=== PATIENT | female | born 1930 | race Caucasian/White ===

== ENCOUNTER 2016-10-21 21:25 | Inpatient (IN) | payer MEDICARE, OTHER ==
[~2016-10-21] VITALS: Ht 152.4 cm; Wt 58.6 kg
[2016-10-21] MEDS ORDERED: FER325 PO (22:13)
[2016-10-21] MEDS ORDERED: DOCU-159 PO (22:13)
[2016-10-21] MEDS ORDERED: MECL-77 PO (22:14)
[2016-10-21] MEDS ORDERED: CARV6.2579 PO (22:14)
[2016-10-21] MEDS ORDERED: VALS1TAB80 PO (22:15)
[2016-10-21] MEDS ORDERED: CLOP75TA4 PO (22:15)
[2016-10-21] MEDS ORDERED: METF1000 PO (22:15)
[2016-10-21] MEDS ORDERED: NOVO3I SC (22:16)
[2016-10-21] MEDS ORDERED: FENO145T19 PO (22:16)
[2016-10-21] MEDS ORDERED: LANT3I SC (22:17)
[2016-10-21] MEDS ORDERED: LINA290C PO (22:17)
[2016-10-21 22:37] LABS: BASOPHILS % 0.3 % (0.0-2.0); EOSINOPHILS # 0.2 10^3/ul (0.0-0.5); EOSINOPHILS % 1.1 % (0.0-7.0); HEMATOCRIT 31.7 % (37.0-47.0); LYMPHOCYTES % 13.4 % (15.0-51.0); MEAN CORPUSCULAR HEMOGLOBIN 25.6 pg (29.0-33.0); MEAN CORPUSCULAR HGB CONC 31.5 g/dl (32.0-37.0); MEAN CORPUSCULAR VOLUME 81.1 fl (82.0-101.0); MEAN PLATELET VOLUME 12.8 fl (7.4-10.4); MONOCYTE # 0.8 10^3/ul (0.3-0.9); MONOCYTES % 5.4 % (0.0-11.0); NEUTROPHILS % 79.3 % (39.0-77.0); PLATELET COUNT 342 10^3/UL (140-415); RED BLOOD COUNT 3.91 10^6/ul (4.20-5.40); RED CELL DISTRIBUTION WIDTH 17.5 % (11.5-14.5); WHITE BLOOD COUNT 15.2 10^3/ul (4.8-10.8)
[2016-10-21 22:39] LABS: POSITIVE DIFF @See below
[2016-10-21 22:52] LABS: INR 1.05; PROTIME 13.7 Sec (12.2-14.2); PT RATIO 1.1
--- NOTE | 2016-10-21 22:52 | RADRPT ---
PROCEDURE: XR Chest. CLINICAL INDICATION: Possible sepsis. TECHNIQUE: Single frontal view of the chest. COMPARISON: None. FINDINGS: Cardiomegaly with atherosclerotic calcifications in the thoracic aorta. There is very mild pulmonary vascular ingestion, and patchy right mid lung and lung base air space d isease. There is mild elevation of the left hemidiaphragm with atelectasis at the left lung base. Fi ndings suggest right lung base pneumonia and mild superimposed failure. No signs of pleural fluid or pneumothorax are seen. The osseous structures and soft tissues are unre markable. IMPRESSION: Right lung base pneumonia. RPTAT: [facility] Physician Ronnie Date Time Electronically viewed and signed by Physician Ronnie on 10/21/2016 22:52 RS/
[2016-10-21 22:53] LABS: PARTIAL THROMBOPLASTIN TIME 22.4 Sec (25.0-35.0)
[2016-10-21 22:56] LABS: ALANINE AMINOTRANSFERASE 34 IU/L (13-69); ALBUMIN 3.1 g/dl (3.3-4.9); ALBUMIN/GLOBULIN RATIO 0.91; ALKALINE PHOSPHATASE 69 IU/L (42-121); ANION GAP 20 (8-16); ASPARTATE AMINO TRANSFERASE 26 IU/L (15-46); BLOOD UREA NITROGEN 35 mg/dl (7-20); CALCIUM 8.2 mg/dl (8.4-10.2); CARBON DIOXIDE 26 mmol/L (21-31); CHLORIDE 105 mmol/L (97-110); CREATININE 1.02 mg/dl (0.44-1.00); GLUCOSE 240 mg/dl (70-220); SODIUM 148 mmol/L (135-144); TOTAL PROTEIN 6.5 g/dl (6.1-8.1)
[2016-10-21 22:59] LABS: ADD UMIC YES; UR ASCORBIC ACID NEGATIVE (NEGATIVE); UR BACTERIA MANY /HPF (NONE SEEN); UR BILIRUBIN (Dip) NEGATIVE (NEGATIVE); UR BLOOD (Dip) NEGATIVE (NEGATIVE); UR CLARITY SLIGHTLY CLOUDY (CLEAR); UR COLOR YELLOW (YELLOW); UR GLUCOSE (Dip) 1+ mg/dL (NEGATIVE); UR KETONES (Dip) NEGATIVE (NEGATIVE); UR LEUKOCYTE ESTERASE (Dip) 2+ Leu/ul (NEGATIVE); UR MUCUS FEW /HPF (NONE SEEN); UR NITRITE (Dip) NEGATIVE (NEGATIVE); UR RBC 0 /HPF (0-5); UR SPECIFIC GRAVITY (Dip) 1.015 (1.003-1.030); UR TOTAL PROTEIN (Dip) 1+ mg/dl (NEGATIVE); UR UROBILINOGEN (Dip) NEGATIVE (NEGATIVE)
[2016-10-21 23:03] LABS: POTASSIUM 2.9 mmol/L (3.5-5.1)
[2016-10-21 23:08] LABS: TROPONIN-I < 0.012 ng/ml (0.00-0.12)
[2016-10-22] VITALS (48 sets, daily range): BP systolic 67–178; BP diastolic 29–107; PULSE 63–85; RESP 13–29; Ht 152.4 cm; Wt 58.6 kg
[2016-10-22] MEDS ORDERED: SODIUM CHLORIDE 0.9% 1L BAG IV* STA
[2016-10-22] MEDS ORDERED: VANCOMYCIN 1 GM (PMX) 250 ML IVPB ONE
[2016-10-22] MEDS ORDERED: CEFEPIME 2GM/50 ML (PMX) 50 ML IVPB ONE
--- NOTE | 2016-10-22 00:02 | RADRPT ---
PROCEDURE: CT BRAIN WITHOUT CONTRAST CLINICAL INDICATION: 86-year-old female with altered mental status TECHNIQUE: The study was performed utilizing [employer] VCT 64-slice CT scanner. Direct axial sections were obtained from the foramen magnum to the vertex without the use of intravenous contrast material. Sagittal and coronal reformations were obtained. Sagittal and coronal reformations were obtained. One or more the following dose reduction techniques were utilized: automated exposure cont rol, adjustment of the mA and/or kV according to patient's size or use of iterative reconstruction t echnique. The images were viewed on a PACS workstation. CTD/vol = 43.9 mGy; Total Exam DLP = 720.2 mGy-cm. COMPARISON: None. FINDINGS: There is moderate degree of diffuse cortical and central atrophy with compensatory ventricular enlar gement. There is an ovoid focus of increased density consistent with hemorrhage within the left glob us pallidus measuring approximately 10 x 12 x 8 mm with mild surrounding edema. There is no evidence for midline shift. There are periventricular and deep white matter areas of decreased density cons istent with microangiopathic ischemic changes. There is an old lacunar infarct within the right glob us pallidus. Calcifications are seen within the intracranial carotid and vertebral arteries bilatera lly. The bony calvarium is intact. There is mild mucosal thickening within the partially visualized right ethmoid air cells. The mastoid air cells are without significant soft tissue. The inferior m astoid air cells are partially sclerotic consistent with prior mastoid disease. IMPRESSION: 1. Acute left globus pallidus intracranial hemorrhage with mild surrounding edema. 2. Moderate diffuse atrophy. 2. Microangiopathic ischemic changes. 3. Old right basal ganglia lacunar infarct. 4. Vascular calcifications. 5. Mild mucosal thickening partially visualized right ethmoid air cells. CRITICAL RESULTS: A call report was made to [facility] ER Dr. Velazquez on October 21, 2016 at 11:59 p.m . .Rah Boo MD, Date Time Electronically viewed and signed by .Rah Boo MD, MD on 10/22/2016 00:02 .M/
[2016-10-22] MEDS ORDERED: POTASSIUM CHLORIDE 20 MEQ in SOD CHLORIDE 0.9% 100 ML IVPB ONE (00:30)
--- NOTE | 2016-10-22 01:42 | ERA ---
ER Documentation Chief Complaint Date/Time DATE: 10/22/16 TIME: 01:39 Chief Complaint biba from home due to being more altered than usual HPI 86-year-old female brought in from home by family for being more altered than usual per the family. History of baseline dementia. Over the past 2 days of emesis patient is been more lethargic but does arouse easily. Patient herself provides very limited history. ROS All systems reviewed and are negative except as per history of present illness. Medications Home Meds Reported Medications Insulin Glargine* (Lantus*) 100 Unit/Ml Soln, 6 UNIT SC QHS, #1 VIAL 10/21/16 Linaclotide (LINZESS) 290 Mcg Capsule, 290 MCG PO DAILY Y for NEEDED, #30 CAP 10/21/16 Fenofibrate Nanocrystallized* (Fenofibrate*) 145 Mg Tablet, 145 MG PO DAILY, TAB 10/21/16 Insulin Aspart* (Novolog Insulin Pen*) 100 Unit/Ml Soln, 0 SC .SLIDING SCALE AC , EA 10/21/16 Valsartan-Hydrochlorothiazide (Valsartan-HCTZ) 320-12.5 Mg Tablet, 1 TAB PO DAILY, #30 TAB 10/21/16 Metformin Hcl* (Metformin Hcl*) 1,000 Mg Tablet, 1000 MG PO WITH BREAKFAST DINNE , #60 TAB 10/21/16 Clopidogrel Bisulfate* (Clopidogrel Bisulfate*) 75 Mg Tablet, 75 MG PO DAILY, # 30 TAB 10/21/16 Carvedilol* (Carvedilol*) 6.25 Mg Tablet, 6.25 MG PO BID, #60 TAB 10/21/16 Meclizine Hcl* (Meclizine Hcl*) 25 Mg Tablet, 12.5 MG PO DAILY Y for DIZZINESS, TAB 10/21/16 Docusate Sodium* (Docusate Sodium*) 100 Mg Capsule, 100 MG PO BID, #60 CAP 10/21/16 Ferrous Sulfate* (Ferrous Sulfate*) 325 Mg Tabec, 325 MG PO DAILY, TAB 10/21/16 Allergies Allergies: Coded Allergies: No Known Allergy (Unverified , 10/21/16) PMhx/Soc History of Surgery: Yes (appendectomy) Anesthesia Reaction: No Hx Neurological Disorder: Yes (dementia) Hx Respiratory Disorders: No Hx Cardiac Disorders: Yes (htn, hld) Hx Psychiatric Problems: No Hx Miscellaneous Medical Probl: Yes (dm) Hx Alcohol Use: No Hx Substance Use: No Hx Tobacco Use: No Smoking Status: Never smoker Physical Exam Vitals Vital Signs Date Time Temp Pulse Resp B/P Pulse Ox O2 Delivery O2 Flow Rate FiO2 10/21/16 22:00 Nasal Cannula 4 10/21/16 21:51 98.4 85 22 141/70 99 Physical Exam Const: [] Head: Atraumatic Eyes: Normal Conjunctiva ENT: Normal External Ears, Nose and Mouth. Neck: Full range of motion..~ No meningismus. Resp: Clear to auscultation bilaterally Cardio: Regular rate and rhythm, no murmurs Abd: Soft, non tender, non distended. Normal bowel sounds Skin: No petechiae or rashes Back: No midline or flank tenderness Ext: No cyanosis, or edema Neur: Awake and alert Psych: Normal Mood and Affect Result Diagram: 10/21/16215310/21/162153 Results 24 hrs Laboratory Tests Test 10/21/16 21:54 10/21/16 23:50 White Blood Count 15.210^3/ul Red Blood Count 3.9110^6/ul Hemoglobin 10.0g/dl Hematocrit 31.7% Mean Corpuscular Volume 81.1fl Mean Corpuscular Hemoglobin 25.6pg Mean Corpuscular Hemoglobin Concent 31.5g/dl Red Cell Distribution Width 17.5% Platelet Count 95977^3/UL Mean Platelet Volume 12.8fl Neutrophils % 79.3% Lymphocytes % 13.4% Monocytes % 5.4% Eosinophils % 1.1% Basophils % 0.3% Nucleated Red Blood Cells % 0.0/100WBC Neutrophils # (Manual) 12.110^3/ul Lymphocytes # 2.010^3/ul Monocytes # 0.810^3/ul Eosinophils # 0.210^3/ul Basophils # 0.010^3/ul Nucleated Red Blood Cells # 0.010^3/ul Prothrombin Time 13.7Sec Prothrombin Time Ratio 1.1 INR International Normalized Ratio 1.05 Activated Partial Thromboplast Time 22.4Sec Urine Color YELLOW Urine Clarity SLIGHTLY CLOUDY Urine pH 5.0 Urine Specific [place] 1.015 Urine Ketones NEGATIVEmg/dL Urine Nitrite NEGATIVEmg/dL Urine Bilirubin NEGATIVEmg/dL Urine Urobilinogen NEGATIVEmg/dL Urine Leukocyte Esterase 2+Husam/ul Urine Microscopic RBC 0/HPF Urine Microscopic WBC 4/HPF Urine Bacteria MANY/HPF Urine Mucus FEW/HPF Urine Hemoglobin NEGATIVEmg/dL Urine Glucose 1+mg/dL Urine Total Protein 1+mg/dl Sodium Level 148mmol/L Potassium Level 2.9mmol/L Chloride Level 105mmol/L Carbon Dioxide Level 26mmol/L Anion Gap 20 Blood Urea Nitrogen 35mg/dl Creatinine 1.02mg/dl Glucose Level 240mg/dl Lactic Acid Level 2.2mmol/L 1.5mmol/L Calcium Level 8.2mg/dl Total Bilirubin 0.0mg/dl Direct Bilirubin 0.00mg/dl Indirect Bilirubin 0.0mg/dl Aspartate Amino Transf (AST/SGOT) 26IU/L Alanine Aminotransferase (ALT/SGPT) 34IU/L Alkaline Phosphatase 69IU/L Troponin I < 0.012ng/ml Total Protein 6.5g/dl Albumin 3.1g/dl Globulin 3.40g/dl Albumin/Globulin Ratio 0.91 Thyroid Stimulating Hormone (TSH) 3.290MIU/L Current Medications Medications (Trade) Dose Ordered Sig/Lilliam Route PRN Reason Start Time Stop Time Status Last Admin Dose Admin Sodium Chloride 2540 ml 2,540 ml BOLUS OVER 2 HOURS STAT IV* 10/22/16 00:00 10/22/16 00:04 DC Cefepime HCl 50 ml @ 100 mls/hr ONCE ONCE IVPB 10/22/16 00:00 10/22/16 00:29 DC Vancomycin HCl 250 ml @ 125 mls/hr ONCE ONCE IVPB 10/22/16 00:00 10/22/16 01:59 Potassium Chloride/Sodium Chloride (KCl/NS) 110 ml @ 55 mls/hr ONCE ONCE IVPB 10/22/16 00:30 10/22/16 02:29 Procedures/MDM EKG: Rate/Rhythm: Normal Sinus Rhythm QRS, ST, T-waves: No changes consistent w/ acute ischemia Impression: No evidence of ischemia or arrhythmia Chest X-ray 1V Interpreted by me: Soft Tissue: No acute abnormalities Bones: No acute abnormalities Mediastinum/Cardiac Silhouette/Lungs: No acute abnormalities CT of the head shows hypertensive bleed. Please see radiologist full dictation for report. Medical decision-makin-year-old female with hypertensive bleed. Patient will be admitted to the intensive care unit. Neurosurgery merchandiser seasonal consulted. Patient will be admitted to hospitalist. Critical Care: Time: 45 minutes Treatments/Evaluations: Close monitoring and treatment of unstable vital signs, cardiorespiratory, and neurologic status, while maintaining tight balance of fluid, respiratory, and cardiac interventions. Departure Diagnosis: Primary Impression: Altered mental status Qualified Code: R41.82 - Altered mental status, unspecified altered mental status type Additional Impression: Acute spont intraparenchymal hemorrhage assoc w/ hypertension Condition: Critical JELANI RAZA Oct 22, 2016 01:42
[2016-10-22] MEDS ORDERED: morphine 2 MG INJ IV PRN (03:30)
[2016-10-22] MEDS ORDERED: ALBUTEROL/IPRATROPIUM (NEB) 3 ML AMP NEB PRN (03:30)
[2016-10-22] MEDS ORDERED: LORAZEPAM 2 MG INJ IV PRN (03:30)
[2016-10-22] MEDS ORDERED: ONDANSETRON 4 MG INJ IV PRN (03:30)
[2016-10-22] MEDS ORDERED: GLUCAGON 1 MG INJ IM PRN (03:45)
[2016-10-22] MEDS ORDERED: GLUCOSE GEL 15 GRAM TUBE PO PRN ×2 (03:45)
[2016-10-22] MEDS ORDERED: DEXTROSE 50% 50 ML SYRINGE IV PRN ×2 (03:45)
--- NOTE | 2016-10-22 05:14 | HP ---
Date/Time of Note Date/Time of Note DATE: 10/22/16 TIME: 05:00 Assessment/Plan VTE Prophylaxis VTE Prophylaxis Intervention: SCD's Assessment/Plan Assessment/Plan 1. Acute intracranial hemorrhage -Continue ICU monitoring -Systolic blood pressure goal should be less than 140 -will repeat head CT in the morning to evaluate for interval change. Consider additional imaging with MRI as well -Frequent neuro checks -Follow-up neurosurgery recommendation 2. Altered mentation, secondary to above -Patient does have a history of dementia but acutely worsened secondary to above -Frequent neuro checks 3. Hypertension: Currently blood pressure not at goal with SBP > 170 on the monitor -Antihypertensives with adjustment as needed -An order for a nicardipine drip will be placed as well 4. Sepsis, as evidenced by leukocytosis and tachypnea, secondary to pneumonia -IV antibiotic -Blood culture results 5. Diabetes with hyperglycemia -Check A1c in a.m. -Insulin with adjustment as needed 6. History of dyslipidemia -Continue home med HPI/ROS Admit Date/Time Admit Date/Time Hx of Present Illness This is an 86-year-old female with a history of hypertension, independent diabetes, dyslipidemia, dementia who was brought to the ER from home for altered mentation. Patient does have a history of dementia but she was noted to be more altered. Patient is not able to provide history and as such information is gathered from ER physician and notes. When patient presented to the ER brain CT showed ccute left globus pallidus intracranial hemorrhage with mild surrounding edema and old right basal ganglia lacunar infarct. Chest x-ray with right lung base pneumonia. Her initial BP was 141/70 with a heart rate of 85. Labs shows a WBC of 15,000, potassium 2.8, hemoglobin 10, BUN 35, creatinine 1.02, glucose 240. Currently she is admitted to ICU. Her eyes are closed but she attempts to open with a stimuli. There is no acute distress noted. . PMH/Family/Social Past Medical History Medical History: diabetes, high cholesterol, hypertension, other (Dementia) Social History Alcohol Use: other (Unknown) Smoking Status: Unknown if ever smoked Drug Use: other (Unknown) Exam/Review of Systems Vital Signs Vitals Vital Signs Date Time Temp Pulse Resp B/P Pulse Ox O2 Delivery O2 Flow Rate FiO2 10/21/16 22:00 Nasal Cannula 4 10/21/16 21:51 98.4 85 22 141/70 99 Exam Constitutional: other (Lying in bed with eyes closed. No acute distress noted) Head: atraumatic, normocephalic Eyes: PERRL Respiratory: diminished breath sounds Cardiovascular: regular rate and rhythm, systolic murmur Gastrointestinal: soft Musculoskeletal: other (Right foot pitting edema noted. She has a few scattered superficial ulceration on lower extremity) Labs Result Diagram: 10/21/16215310/21/162153 Medications Medications Current Medications Ondansetron HCl (Zofran Inj) 4 mg Q6H PRN IV NAUSEA AND/OR VOMITING; Start at 03:30 Acetaminophen (Tylenol Liquid) 650 mg Q6H PRN PO PAIN LEVEL 1-3 OR FEVER; Start 10/22/16 at 03:30 Morphine Sulfate (morphine) 2 mg Q4H PRN IV PAIN LEVEL 7-10; Start 10/22/16 at 03:30 Lorazepam (Ativan) 0.5 mg Q4H PRN IV ANXIETY; Start 10/22/16 at 03:30 Famotidine (Pepcid Iv) 20 mg DAILY IV ; Start 10/22/16 at 09:00 Carvedilol (Coreg) 6.25 mg BID PO ; Start 10/22/16 at 09:00 Fenofibrate (Tricor) 145 mg DAILY PO ; Start 10/22/16 at 09:00; Status UNV Ferrous Sulfate 325 mg 325 mg DAILY PO ; Start 10/22/16 at 09:00; Status UNV Levofloxacin/ Dextrose (Levaquin 500mg/ D5W 100 ml (Pmx)) 100 ml @ 100 mls/hr ONCE ONCE IVPB ; Start 10/22/16 at 06:00; Stop 10/22/16 at 06:59 Diagnostic Test (Pha) 1 ea 1 ea 02 XX ; Start 10/23/16 at 02:00 Levofloxacin/ Dextrose (Levaquin 250 Mg/ D5W 50 ml (Pmx)) 50 ml @ 50 mls/hr Q24H IVPB ; Start 10/23/16 at 06:00 Miscellaneous Information 1 ea NOTE XX ; Start 10/22/16 at 03:45 Glucose (Glutose) 15 gm Q15M PRN PO DECREASED GLUCOSE; Start 10/22/16 at 03:45 Glucose (Glutose) 22.5 gm Q15M PRN PO DECREASED GLUCOSE; Start 10/22/16 at 03: 45 Dextrose (D50w Syringe) 25 ml Q15M PRN IV DECREASED GLUCOSE; Start 10/22/16 at 03:45 Dextrose (D50w Syringe) 50 ml Q15M PRN IV DECREASED GLUCOSE; Start 10/22/16 at 03:45 Glucagon (Glucagen) 1 mg Q15M PRN IM DECREASED GLUCOSE; Start 10/22/16 at 03:45 Glucose (Glutose) 15 gm Q15M PRN BUCCAL DECREASED GLUCOSE; Start 10/22/16 at 03 :45 JELANI HEBERT MD Oct 22, 2016 05:10
[2016-10-22] MEDS: LABETALOL HCL 20MG INJ IV PRN (05:53)
[2016-10-22] MEDS ORDERED: LEVOFLOXACIN 500MG/D5W (PMX) 100 ML IVPB ONE (06:00)
[2016-10-22 06:50] LABS: BASOPHILS % 0.3 % (0.0-2.0); EOSINOPHILS # 0.2 10^3/ul (0.0-0.5); EOSINOPHILS % 1.8 % (0.0-7.0); HEMATOCRIT 27.5 % (37.0-47.0); HEMOGLOBIN 8.6 g/dl (12.0-16.0); LYMPHOCYTES # 2.1 10^3/ul (0.8-2.9); LYMPHOCYTES % 16.7 % (15.0-51.0); MEAN CORPUSCULAR HGB CONC 31.3 g/dl (32.0-37.0); MEAN CORPUSCULAR VOLUME 83.1 fl (82.0-101.0); MEAN PLATELET VOLUME 10.9 fl (7.4-10.4); MONOCYTE # 0.8 10^3/ul (0.3-0.9); NEUTROPHILS % 74.6 % (39.0-77.0); PLATELET COUNT 384 10^3/UL (140-415); RED BLOOD COUNT 3.31 10^6/ul (4.20-5.40); RED CELL DISTRIBUTION WIDTH 17.3 % (11.5-14.5); WHITE BLOOD COUNT 12.6 10^3/ul (4.8-10.8)
[2016-10-22 07:24] LABS: ALBUMIN 2.5 g/dl (3.3-4.9); ALBUMIN/GLOBULIN RATIO 0.89; CALCIUM 7.3 mg/dl (8.4-10.2); CREATININE 0.88 mg/dl (0.44-1.00); TOTAL PROTEIN 5.3 g/dl (6.1-8.1)
[2016-10-22] MEDS: INSULIN ASPART [NOVOLOG] 3 ML PEN SC SCH ×4 (07:35→21:00)
[2016-10-22 07:48] LABS: POTASSIUM 2.6 mmol/L (3.5-5.1)
[2016-10-22] MEDS: niCARdipine-NS 0.1MG/ML DRIP 200 ML IV SCH ×4 (07:51→21:42)
[2016-10-22] MEDS: FERROUS SULFATE (EC) 325 MG TAB PO SCH (09:05)
[2016-10-22] MEDS: FENOFIBRATE 145 MG TAB PO SCH (09:06)
[2016-10-22] MEDS: FAMOTIDINE 20 MG INJ IV SCH (09:15)
--- NOTE | 2016-10-22 09:38 | PN ---
Date/Time of Note Date/Time of Note DATE: 10/22/16 TIME: 09:34 Assessment/Plan VTE Prophylaxis VTE Prophylaxis Intervention: contraindicated Lines/Catheters IV [facility]from [facility] Peripheral IV Urinary Cath still in place: Yes Reason Cath still needed: urinary retention Assessment/Plan Chief Complaint/Hosp Course Assessment and plan: 86-year-old female with a history of hypertension, independent diabetes, dyslipidemia, dementia who was brought in for altered mentation, found with intracranial hemorrhage. 1. Acute intracranial hemorrhage -initial CT had showed:Acute left globus pallidus intracranial hemorrhage with mild surrounding edema. -Continue ICU monitoring -Systolic blood pressure goal should be less than 140, on Cardene drip -Follow-up repeat head CT in the morning to evaluate for interval change. Consider additional imaging with MRI as well -Frequent neuro checks -Follow-up neurosurgery recommendations 2. Altered mentation, secondary to above: Patient does have a history of dementia but acutely worsened secondary to above -Continue frequent neuro checks 3. Hypertension: Currently blood pressure at goal this morning less than 140 systolic while on Cardene drip -Continue antihypertensives with adjustment as needed, including Cardene drip for now 4. Sepsis, as evidenced by leukocytosis and tachypnea, secondary to pneumonia and likely UTI -IV antibiotic -Blood culture results, respiratory and urine culture results as well follow-up 5. Diabetes with hyperglycemia: A1c equals 7.6 -Insulin with adjustment as needed 6. History of dyslipidemia -Continue home med Critical care time spent on patient care today equals 50 minutes Problems: Subjective 24 Hr Interval Summary Free Text/Dictation Patient presently on Cardene drip. No acute events overnight. Awaiting repeat head CT for later this morning. Exam/Review of Systems Vital Signs Vitals Vital Signs Date Time Temp Pulse Resp B/P Pulse Ox O2 Delivery O2 Flow Rate FiO2 10/22/16 06:30 69 15 138/47 97 Nasal Cannula 2.0 10/22/16 04:30 97.8 Intake and Output 10/21/16 10/21/16 10/22/16 15:00 23:00 07:00 Output Total 350 ml Balance -350 ml Exam Constitutional: other (Lying in bed with eyes closed. No acute distress noted) Head: atraumatic, normocephalic Eyes: PERRL Respiratory: some diminished breath sounds Cardiovascular: regular rate and rhythm, systolic murmur Gastrointestinal: soft Musculoskeletal: other (Right foot pitting edema noted. She has a few scattered superficial ulceration on lower extremity) Results Result Diagram: 10/22/16 0639 10/22/16 0639 Results 24 hrs Laboratory Tests Test 10/21/16 21:54 10/21/16 23:50 10/22/16 01:30 10/22/16 06:39 White Blood Count 15.2 H 12.6 H Red Blood Count 3.91 L 3.31 L Hemoglobin 10.0 L 8.6 L Hematocrit 31.7 L 27.5 L Mean Corpuscular Volume 81.1 L 83.1 Mean Corpuscular Hemoglobin 25.6 L 26.0 L Mean Corpuscular Hemoglobin Concent 31.5 L 31.3 L Red Cell Distribution Width 17.5 H 17.3 H Platelet Count 342 384 Mean Platelet Volume 12.8 H 10.9 H Neutrophils % 79.3 H 74.6 Lymphocytes % 13.4 L 16.7 Monocytes % 5.4 6.0 Eosinophils % 1.1 1.8 Basophils % 0.3 0.3 Nucleated Red Blood Cells % 0.0 0.0 Neutrophils # (Manual) 12.1 H 9.4 H Lymphocytes # 2.0 2.1 Monocytes # 0.8 0.8 Eosinophils # 0.2 0.2 Basophils # 0.0 0.0 Nucleated Red Blood Cells # 0.0 0.0 Prothrombin Time 13.7 Prothrombin Time Ratio 1.1 INR International Normalized Ratio 1.05 Activated Partial Thromboplast Time 22.4 L Urine Color YELLOW Urine Clarity SLIGHTLY CLOUDY A Urine pH 5.0 Urine Specific [place] 1.015 Urine Ketones NEGATIVE Urine Nitrite NEGATIVE Urine Bilirubin NEGATIVE Urine Urobilinogen NEGATIVE Urine Leukocyte Esterase 2+ H Urine Microscopic RBC 0 Urine Microscopic WBC 4 Urine Bacteria MANY A Urine Mucus FEW A Urine Hemoglobin NEGATIVE Urine Glucose 1+ H Urine Total Protein 1+ H Sodium Level 148 H 149 H Potassium Level 2.9 *L 2.6 *L Chloride Level 105 112 H Carbon Dioxide Level 26 25 Anion Gap 20 H 15 Blood Urea Nitrogen 35 H 31 H Creatinine 1.02 H 0.88 Glucose Level 240 H 191 Lactic Acid Level 2.2 *H 1.5 1.4 Calcium Level 8.2 L 7.3 L Total Bilirubin 0.0 L 0.0 L Direct Bilirubin 0.00 0.00 Indirect Bilirubin 0.0 0.0 Aspartate Amino Transf (AST/SGOT) 26 23 Alanine Aminotransferase (ALT/SGPT) 34 31 Alkaline Phosphatase 69 52 Troponin I < 0.012 Total Protein 6.5 5.3 #L Albumin 3.1 L 2.5 L Globulin 3.40 H 2.80 Albumin/Globulin Ratio 0.91 0.89 Thyroid Stimulating Hormone (TSH) 3.290 Hemoglobin A1c 7.6 H Test 10/22/16 08:30 Bedside Glucose 173 Medications Medications Current Medications Ondansetron HCl (Zofran Inj) 4 mg Q6H PRN IV NAUSEA AND/OR VOMITING; Start at 03:30 Acetaminophen (Tylenol Liquid) 650 mg Q6H PRN PO PAIN LEVEL 1-3 OR FEVER; Start 10/22/16 at 03:30 Morphine Sulfate (morphine) 2 mg Q4H PRN IV PAIN LEVEL 7-10; Start 10/22/16 at 03:30 Lorazepam (Ativan) 0.5 mg Q4H PRN IV ANXIETY; Start 10/22/16 at 03:30 Famotidine (Pepcid Iv) 20 mg DAILY IV Last administered on 10/22/16 09:15; Admin Dose 20 MG; Start 10/22/16 at 09:00 Carvedilol (Coreg) 6.25 mg BID PO Last administered on 10/22/16 09:06; Admin Dose 6.25 MG; Start 10/22/16 at 09:00 Fenofibrate (Tricor) 145 mg DAILY PO Last administered on 10/22/16 09:06; Admin Dose 145 MG; Start 10/22/16 at 09:00 Ferrous Sulfate (Ferrous Sulfate (Ec)) 325 mg DAILY PO Last administered on 09:05; Admin Dose 325 MG; Start 10/22/16 at 09:00 Diagnostic Test (Pha) 1 ea 1 ea 02 XX ; Start 10/23/16 at 02:00 Levofloxacin/ Dextrose (Levaquin 250 Mg/ D5W 50 ml (Pmx)) 50 ml @ 50 mls/hr Q24H IVPB ; Start 10/23/16 at 06:00 Miscellaneous Information 1 ea NOTE XX ; Start 10/22/16 at 03:45 Glucose (Glutose) 15 gm Q15M PRN PO DECREASED GLUCOSE; Start 10/22/16 at 03:45 Glucose (Glutose) 22.5 gm Q15M PRN PO DECREASED GLUCOSE; Start 10/22/16 at 03: 45 Dextrose (D50w Syringe) 25 ml Q15M PRN IV DECREASED GLUCOSE; Start 10/22/16 at 03:45 Dextrose (D50w Syringe) 50 ml Q15M PRN IV DECREASED GLUCOSE; Start 10/22/16 at 03:45 Glucagon (Glucagen) 1 mg Q15M PRN IM DECREASED GLUCOSE; Start 10/22/16 at 03:45 Glucose (Glutose) 15 gm Q15M PRN BUCCAL DECREASED GLUCOSE; Start 10/22/16 at 03 :45 Labetalol HCl 10 mg 10 mg Q2H PRN IV sbp > 160 Last administered on 10/22/16 05:53; Admin Dose 10 MG; Start 10/22/16 at 05:00 Nicardipine HCl 200 ml @ 50 mls/hr TITRATE IV Last administered on 10/22/16 07:51; Admin Dose 50 MLS/HR; Start 10/22/16 at 05:20 Potassium Chloride (KCl 40 MEQ/250 ML NS) 250 ml @ 62.5 mls/hr Q4H IVPB ; Start 10/22/16 at 09:30; Stop 10/22/16 at 17:29; Status UNV Insulin Glargine (Lantus) 6 unit QHS SC ; Start 10/22/16 at 21:00; Status UNV REGAN CAMARENA Oct 22, 2016 09:38
[2016-10-22 09:54] LABS: CHOL/HDL RATIO 4.9 RATIO
[2016-10-22] MEDS: POTASSIUM CHLORIDE 250 ML IVPB SCH ×2 (12:27→18:22)
--- NOTE | 2016-10-22 18:06 | CONS ---
Date/Time of Note Date/Time of Note DATE: 10/22/16 TIME: 17:46 Assessment/Plan Assessment/Plan Problems: (1) Acute spont intraparenchymal hemorrhage assoc w/ hypertension Status: Acute Comment: Patient with decline in neurologic functioning which has been accelerating. By history, she has baseline dementia. By story, this is significantly progressed as she is generally unable to remember or recognize family members. More acutely, there was a change about a week ago in which she developed some R- sided weakness and speech became more unintelligible. It is likely that this was due to the small bleed involving L basal ganglia and perhaps internal capsule. She further deteriorated yesterday - this was likely medically related such as due to pneumonia which had been seen on CXR. She is now improved c/w overnight, perhaps due to initiation of treatment of this (although O2 sat remains relatively poor). From neurosurgical perspective, there is no indication for intervention. She had been on Plavix, and platelets were given. Recommend: 1. No indication for neurosurgical intervention. 2. Repeat CT scan, and if it is stable, she can be transferred from ICU from neurosurgical perspective. 3. BP control with goal keep SBP<160. 4. Hold Plavix. If anti-platelet agents to be restarted in the future, good BP control especially critical due to risk of further HTN-related ICH. 5. If CT stable, OK to advance diet and activity from neurosurgical perspective. 6. No indication for steroids, anticonvulsants, or ICP management. 7. Avoid fluid overload. Follow electrolytes and avoid hyponatremia. 8. Recommend no or minimal use of sedatives or narcotics as sedating medication will worsen neurologic condition. Consultation Date/Type/Reason Admit Date/Time Date of Consultation: Oct 22, 2016 Type of Consultation: Neurosurgery Reason for Consultation intracranial hemorrhage Hx of Present Illness History was obtained from patient's family members present at bedside as well as from notes. Patient unable to provide any information. According to family, she has baseline dementia and is unable to recognize family members. She has been worsening over time, with an accelerated course recently. The report that it has been several months of very poor memory and confusion. Lives at home and is generally able to get around the house on her own. Beginning about a week ago, they noted decreased mobility and that specifically she had some R-sided weakness. Over days, her appetite became poor and she was not moving herself at all. Speech and understanding worse, speaking words that are not understandable to her family. Yesterday, she was more unresponsive, not opening eyes or responding at all. She was brought to the ER where ICH was noted on CT. Also CXR showing pneumonia. Family not sure if she had been febrile. She had been taking Plavix up until day prior to admission. Subjective hx not possible: pt non-verbal Past Medical History Medical History: diabetes, high cholesterol, hypertension, other (Dementia) Social History Alcohol Use: other (Unknown) Smoking Status: Never smoker Drug Use: other (Unknown) Exam/Review of Systems Vital Signs Vitals Vital Signs Date Time Temp Pulse Resp B/P Pulse Ox O2 Delivery O2 Flow Rate FiO2 10/22/16 16:34 4.0 10/22/16 16:00 80 10/22/16 15:00 26 129/56 94 Nasal Cannula 10/22/16 12:45 98.3 Intake and Output 10/21/16 10/21/16 10/22/16 15:00 23:00 07:00 Output Total 390 ml Balance -390 ml Exam Constitutional: alert, obese, No oriented Head: atraumatic, normocephalic Eyes: PERRL, nl conjunctiva Neck: supple Cardiovascular: nl pulses, No edema Neurological: confused, other (awake and alert; eyes open spontaneously and regards examiner; does vocalize words, but family is unable to understand her; moving spontaneously and purposefully bilat UEs, not following commands; movement RUE and LUE about the same with no obvious weakness or asymrtry; 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 Small L basal ganglion bleed with hyperdense center and more hypodense periphery. about 12 x 8 mm, no significant mass effect. pattern of density suggestive of subacute bleed probably a few days old or so. Significant atrophy with very prominent CSF spaces throughout, no hydrocephalus. Result Diagram: 10/22/16 0639 10/22/16 0639 Results 24 hrs Laboratory Tests Test 10/21/16 21:54 10/21/16 23:50 10/22/16 01:30 10/22/16 06:39 White Blood Count 15.2 H 12.6 H Red Blood Count 3.91 L 3.31 L Hemoglobin 10.0 L 8.6 L Hematocrit 31.7 L 27.5 L Mean Corpuscular Volume 81.1 L 83.1 Mean Corpuscular Hemoglobin 25.6 L 26.0 L Mean Corpuscular Hemoglobin Concent 31.5 L 31.3 L Red Cell Distribution Width 17.5 H 17.3 H Platelet Count 342 384 Mean Platelet Volume 12.8 H 10.9 H Neutrophils % 79.3 H 74.6 Lymphocytes % 13.4 L 16.7 Monocytes % 5.4 6.0 Eosinophils % 1.1 1.8 Basophils % 0.3 0.3 Nucleated Red Blood Cells % 0.0 0.0 Neutrophils # (Manual) 12.1 H 9.4 H Lymphocytes # 2.0 2.1 Monocytes # 0.8 0.8 Eosinophils # 0.2 0.2 Basophils # 0.0 0.0 Nucleated Red Blood Cells # 0.0 0.0 Prothrombin Time 13.7 Prothrombin Time Ratio 1.1 INR International Normalized Ratio 1.05 Activated Partial Thromboplast Time 22.4 L Urine Color YELLOW Urine Clarity SLIGHTLY CLOUDY A Urine pH 5.0 Urine Specific [place] 1.015 Urine Ketones NEGATIVE Urine Nitrite NEGATIVE Urine Bilirubin NEGATIVE Urine Urobilinogen NEGATIVE Urine Leukocyte Esterase 2+ H Urine Microscopic RBC 0 Urine Microscopic WBC 4 Urine Bacteria MANY A Urine Mucus FEW A Urine Hemoglobin NEGATIVE Urine Glucose 1+ H Urine Total Protein 1+ H Sodium Level 148 H 149 H Potassium Level 2.9 *L 2.6 *L Chloride Level 105 112 H Carbon Dioxide Level 26 25 Anion Gap 20 H 15 Blood Urea Nitrogen 35 H 31 H Creatinine 1.02 H 0.88 Glucose Level 240 H 191 Lactic Acid Level 2.2 *H 1.5 1.4 Calcium Level 8.2 L 7.3 L Total Bilirubin 0.0 L 0.0 L Direct Bilirubin 0.00 0.00 Indirect Bilirubin 0.0 0.0 Aspartate Amino Transf (AST/SGOT) 26 23 Alanine Aminotransferase (ALT/SGPT) 34 31 Alkaline Phosphatase 69 52 Troponin I < 0.012 Total Protein 6.5 5.3 #L Albumin 3.1 L 2.5 L Globulin 3.40 H 2.80 Albumin/Globulin Ratio 0.91 0.89 Thyroid Stimulating Hormone (TSH) 3.290 Hemoglobin A1c 7.6 H Triglycerides Level 193 H Cholesterol Level 119 LDL Cholesterol, Calculated 56 HDL Cholesterol 24 L Cholesterol/HDL Ratio 4.9 Test 10/22/16 08:30 10/22/16 12:43 Bedside Glucose 173 152 Medications Medications Current Medications Ondansetron HCl (Zofran Inj) 4 mg Q6H PRN IV NAUSEA AND/OR VOMITING; Start at 03:30 Acetaminophen (Tylenol Liquid) 650 mg Q6H PRN PO PAIN LEVEL 1-3 OR FEVER; Start 10/22/16 at 03:30 Morphine Sulfate (morphine) 2 mg Q4H PRN IV PAIN LEVEL 7-10; Start 10/22/16 at 03:30 Lorazepam (Ativan) 0.5 mg Q4H PRN IV ANXIETY; Start 10/22/16 at 03:30 Famotidine (Pepcid Iv) 20 mg DAILY IV Last administered on 10/22/16 09:15; Admin Dose 20 MG; Start 10/22/16 at 09:00 Carvedilol (Coreg) 6.25 mg BID PO Last administered on 10/22/16 09:06; Admin Dose 6.25 MG; Start 10/22/16 at 09:00 Fenofibrate (Tricor) 145 mg DAILY PO Last administered on 10/22/16 09:06; Admin Dose 145 MG; Start 10/22/16 at 09:00 Ferrous Sulfate (Ferrous Sulfate (Ec)) 325 mg DAILY PO Last administered on 09:05; Admin Dose 325 MG; Start 10/22/16 at 09:00 Diagnostic Test (Pha) 1 ea 1 ea 02 XX ; Start 10/23/16 at 02:00 Levofloxacin/ Dextrose (Levaquin 250 Mg/ D5W 50 ml (Pmx)) 50 ml @ 50 mls/hr Q24H IVPB ; Start 10/23/16 at 06:00 Miscellaneous Information 1 ea NOTE XX ; Start 10/22/16 at 03:45 Glucose (Glutose) 15 gm Q15M PRN PO DECREASED GLUCOSE; Start 10/22/16 at 03:45 Glucose (Glutose) 22.5 gm Q15M PRN PO DECREASED GLUCOSE; Start 10/22/16 at 03: 45 Dextrose (D50w Syringe) 25 ml Q15M PRN IV DECREASED GLUCOSE; Start 10/22/16 at 03:45 Dextrose (D50w Syringe) 50 ml Q15M PRN IV DECREASED GLUCOSE; Start 10/22/16 at 03:45 Glucagon (Glucagen) 1 mg Q15M PRN IM DECREASED GLUCOSE; Start 10/22/16 at 03:45 Glucose (Glutose) 15 gm Q15M PRN BUCCAL DECREASED GLUCOSE; Start 10/22/16 at 03 :45 Labetalol HCl 10 mg 10 mg Q2H PRN IV sbp > 160 Last administered on 10/22/16 05:53; Admin Dose 10 MG; Start 10/22/16 at 05:00 Nicardipine HCl 200 ml @ 50 mls/hr TITRATE IV Last administered on 10/22/16 16:55; Admin Dose 50 MLS/HR; Start 10/22/16 at 05:20 Potassium Chloride (KCl 40 MEQ/250 ML NS) 250 ml @ 62.5 mls/hr Q4H IVPB Last administered on 10/22/16 12:27; Admin Dose 62.5 MLS/HR; Start 10/22/16 at 10:00 ; Stop 10/22/16 at 17:59 Insulin Glargine (Lantus) 6 unit QHS SC ; Start 10/22/16 at 21:00 JENNIE SCHMITT MD Oct 22, 2016 17:57
--- NOTE | 2016-10-22 18:46 | CONS ---
DATE OF ADMISSION: 10/22/2016 DATE OF CONSULTATION: 10/22/2016 REASON FOR CONSULTATION: Acute kidney injury. HISTORY OF PRESENT ILLNESS: This is an 86-year-old female with a past medical history of hypertension, diabetes, dyslipidemia, dementia, who was brought into the emergency room for altered mental status. The patient in the emergency room had a CT scan which showed evidence of left globus pallidus intracranial hemorrhage with mild surrounding edema. Chest x-ray showed right lung pneumonia. The patient's laboratory data showed elevated BUN 35 and creatinine 1.02. The patient was sent to the intensive care unit for observation. PAST MEDICAL HISTORY: History of diabetes, dyslipidemia, hypertension, dementia. SOCIAL HISTORY: Unknown. FAMILY HISTORY: Unknown. MEDICATION: The patient's medications reviewed. REVIEW OF SYSTEMS: Unable to do adequate review of systems, the patient is altered. Pertinent positives obtained by reviewing the records, speaking to the hospital staff, as in HPI, otherwise negative. PHYSICAL EXAMINATION: VITAL SIGNS: Blood pressure 129/56, respirations 26, pulse 80, temperature 98.6. HEENT: Head is normocephalic. NECK: Supple. HEART: Regular rate. LUNGS: Diminished breath sounds at the base. ABDOMEN: Soft, nontender to palpation. No guarding. EXTREMITIES: Negative for clubbing, cyanosis. No edema. DERMATOLOGIC: Clean. No rashes. MUSCULOSKELETAL: No joint effusion. NEUROLOGIC: No change in exam. LABORATORY DATA: Show sodium 149, potassium 2.6, BUN 31, creatinine 0.88. White count 12.6, hemoglobin 8.6, hematocrit 27.5, platelet count 384. IMPRESSION AND PLAN: This is a 86-year-old female presents with: 1. Nonoliguric acute kidney injury with unknown baseline creatinine. Etiology secondary to hemodynamics. Renal function is improved with supportive care, with blood pressure control, and after receiving gentle IV hydration. 2. Hypernatremia. Patient has a free water deficit of approximately 1 liter. Will continue hypotonic fluid. 3. Hypokalemia. Replete potassium chloride. 4. Hypertensive urgency. The patient is on nicardipine drip, continue. 5. Acute intracranial hemorrhage. The patient is currently in ICU. Continue blood pressure control. Repeat CT scan for evaluation of the hemorrhage. 6. Acute encephalopathy, etiology secondary to acute cerebrovascular accident, hypertensive urgency. Continue to monitor. 7. Sepsis. Continue current antibiotic regimen. 8. Diabetes. Continue insulin sliding scale. Thank you, Dr. Banegas, for this interesting consult. It will be a pleasure to follow the patient with you throughout the hospital course. Dictated By: Norberto Adkins DO /grace/lavinia /Document#: [id number]
[2016-10-22] MEDS: INSULIN GLARGINE [LANtus] 3 ML PEN SC SCH (21:16)
--- NOTE | 2016-10-22 23:37 | RADRPT ---
PROCEDURE: CT head, without contrast. CLINICAL INDICATION: Intracranial hemorrhage. TECHNIQUE: Noncontrast CT examination of the head, with axial, sagittal and coronal reformatted im ages. Automated dose exposure control was employed. CTDI: 42.30 and DLP: 720.23. COMPARISON: CT head dated 10/21/2016. FINDINGS: Left basal ganglia intraparenchymal hemorrhages again seen, slightly decreased in size over interval with persistent mild surrounding vasogenic edema. Chronic changes of atrophy and small vessel disease of white matter. These findings are without sign ificant interchange agent the interval. No new intracranial hemorrhage. Subarachnoid spaces are substantially preserved and symmetric. Ve ntricles are unremarkable. No mass effect. Martin-white matter distinction is preserved without evident decreased attenuation t o suggest acute or recent infarct. Sinuses and osseous structures are unremarkable. IMPRESSION: Slightly decreased left basal ganglia intracranial hemorrhage over interval since 10/21/2016. RPTAT: [facility] Physician Ronnie Date Time Electronically viewed and signed by Physician Ronnie on 10/22/2016 23:36 RS/
[2016-10-23] VITALS (54 sets, daily range): BP systolic 107–164; BP diastolic 45–120; PULSE 71–96; RESP 16–29
[2016-10-23] MEDS: niCARdipine-NS 0.1MG/ML DRIP 200 ML IV SCH ×5 (01:33→17:27)
[2016-10-23] MEDS: ACCU-CHEK XX SCH (02:00)
[2016-10-23] MEDS: LEVOFLOXACIN 250MG/D5W (PMX) 50 ML IVPB SCH (05:30)
[2016-10-23 07:33] LABS: BASOPHIL # 0.1 10^3/ul (0.0-0.1); BASOPHILS % 0.4 % (0.0-2.0); EOSINOPHILS # 0.4 10^3/ul (0.0-0.5); EOSINOPHILS % 3.2 % (0.0-7.0); HEMATOCRIT 28.4 % (37.0-47.0); HEMOGLOBIN 8.8 g/dl (12.0-16.0); LYMPHOCYTES # 1.7 10^3/ul (0.8-2.9); LYMPHOCYTES % 13.6 % (15.0-51.0); MEAN CORPUSCULAR HEMOGLOBIN 25.4 pg (29.0-33.0); MEAN CORPUSCULAR VOLUME 82.1 fl (82.0-101.0); MEAN PLATELET VOLUME 11.1 fl (7.4-10.4); MONOCYTE # 0.8 10^3/ul (0.3-0.9); MONOCYTES % 6.6 % (0.0-11.0); NEUTROPHILS % 75.6 % (39.0-77.0); PLATELET COUNT 496 10^3/UL (140-415); RED BLOOD COUNT 3.46 10^6/ul (4.20-5.40); RED CELL DISTRIBUTION WIDTH 17.1 % (11.5-14.5); WHITE BLOOD COUNT 12.3 10^3/ul (4.8-10.8)
[2016-10-23] MEDS: INSULIN ASPART [NOVOLOG] 3 ML PEN SC SCH ×4 (07:35→21:26)
--- NOTE | 2016-10-23 07:46 | PN ---
DATE: 10/23/2016 SUBJECTIVE DATA: The patient remains critically ill in intensive care unit on Cardene drip. The patient had a repeat CT scan of the brain, yesterday, which showed decreased size in left basal ganglia intracranial hemorrhage. No other events noted. OBJECTIVE DATA: VITAL SIGNS: Blood pressure 126/61, respirations 16, pulse 71, temperature 98.9. HEENT: Head is normocephalic. NECK: Supple. HEART: Regular rate. LUNGS: Show diminished breath sounds at the base. ABDOMEN: Soft, nontender to palpation. No rebound or guarding. EXTREMITIES: Negative for clubbing, cyanosis. No edema. DERMATOLOGIC: Clean. No rashes. MUSCULOSKELETAL: No joint effusion. NEUROLOGIC: No change in exam. MEDICATIONS: Reviewed. LABORATORY AND DIAGNOSTIC DATA: Currently pending. ASSESSMENT AND PLAN: 1. Nonoliguric acute kidney injury with unknown baseline creatinine. Etiology is likely secondary to hemodynamics. Renal function appears to have improved with supportive care. At this point, continue current treatment, supportive care. Renally dose all meds. 2. Hyponatremia. The patient has a free water deficit of 1 L. We will continue to monitor. 3. Hypokalemia. The patient is status post potassium chloride repletion. We will monitor. 4. Hypertensive urgency. Currently on a Cardene drip, continue. 5. Acute intracranial hemorrhage secondary to hypertension. Repeat CT scan shows a decrease size of left basal ganglia hemorrhage. Continue to monitor. Follow up with Neurosurgery. 6. Acute encephalopathy. Etiology secondary acute cerebrovascular accident, hypertensive urgency. Continue to monitor. 7. Sepsis. Continue current antibiotic regimen. 8. Diabetes. Continue current insulin regimen. Dictated By: Norberto Adkins DO /grace/haresh /Document#: [id number]
[2016-10-23 08:12] LABS: CALCIUM 8.2 mg/dl (8.4-10.2); CREATININE 0.81 mg/dl (0.44-1.00); POTASSIUM 3.2 mmol/L (3.5-5.1)
[2016-10-23] MEDS: FAMOTIDINE 20 MG INJ IV SCH (09:06)
[2016-10-23] MEDS: FERROUS SULFATE (EC) 325 MG TAB PO SCH (09:08)
[2016-10-23] MEDS: FENOFIBRATE 145 MG TAB PO SCH (09:08)
--- NOTE | 2016-10-23 09:35 | PN ---
Date/Time of Note Date/Time of Note DATE: 10/23/16 TIME: : Assessment/Plan VTE Prophylaxis VTE Prophylaxis Intervention: contraindicated Lines/Catheters IV C[facility]ter Type (from [facility] Peripheral IV Urinary Cath still in place: Yes Reason Cath still needed: urinary retention Assessment/Plan Chief Complaint/Hosp Course Assessment and plan: 86-year-old female with a history of hypertension, independent diabetes, dyslipidemia, dementia who was brought in for altered mentation, found with intracranial hemorrhage. 1. Acute intracranial hemorrhage -initial CT had showed:Acute left globus pallidus intracranial hemorrhage with mild surrounding edema. Repeat Head CT last night = Slightly decreased left basal ganglia intracranial hemorrhage over interval since CT from 10/21/2016. -keep Systolic blood pressure goal should be less than 140, on Cardene drip -Frequent neuro checks -Follow-up neurosurgery recommendations 2. Altered mentation, secondary to above: Patient does have a history of dementia but acutely worsened secondary to above -Continue frequent neuro checks 3. Hypertension: Currently blood pressure at goal this morning less than 140 systolic while on Cardene drip -Continue antihypertensives with adjustment as needed, including Cardene drip for now 4. Sepsis, as evidenced by leukocytosis and tachypnea, secondary to pneumonia and likely UTI -IV antibiotic -Blood culture results, respiratory and urine culture results as well follow-up 5. Diabetes with hyperglycemia: A1c equals 7.6 -Insulin with adjustment as needed 6. History of dyslipidemia -Continue home med Critical care time spent on patient care today equals 45 minutes Problems: Subjective 24 Hr Interval Summary Free Text/Dictation Pt had repeat head CT scan yesterday. Had plt transfusion yesterday as well. Had some agitation yesterday requiring restraints. Seen by renal team this AM. Exam/Review of Systems Vital Signs Vitals Vital Signs Date Time Temp Pulse Resp B/P Pulse Ox O2 Delivery O2 Flow Rate FiO2 10/23/16 08:00 87 10/23/16 06:00 16 126/61 98 10/23/16 05:00 98.9 10/23/16 03:30 Nasal Cannula 10/23/16 02:18 6.0 Intake and Output 10/22/16 10/22/16 10/23/16 15:00 23:00 07:00 Intake Total 350 ml 250 ml 300 ml Output Total 320 ml 325 ml 330 ml Balance 30 ml -75 ml -30 ml Exam Constitutional: lying in bed, in restraints, speaking Head: atraumatic, normocephalic Eyes: PERRL Respiratory: some diminished breath sounds Cardiovascular: regular rate and rhythm, systolic murmur Gastrointestinal: soft Musculoskeletal: other (Right foot pitting edema noted. She has a few scattered superficial ulceration on lower extremity) Results Result Diagram: 10/23/16 0716 10/23/16 0716 Results 24 hrs Laboratory Tests Test 10/22/16 12:43 10/22/16 18:18 10/22/16 21:03 10/23/16 03:54 Bedside Glucose 152 125 133 102 Test 10/23/16 05:12 10/23/16 07:16 10/23/16 07:50 Lab Scanned Report BLOOD TRANSFUSION White Blood Count 12.3 H Red Blood Count 3.46 L Hemoglobin 8.8 L Hematocrit 28.4 L Mean Corpuscular Volume 82.1 Mean Corpuscular Hemoglobin 25.4 L Mean Corpuscular Hemoglobin Concent 31.0 L Red Cell Distribution Width 17.1 H Platelet Count 496 #H Mean Platelet Volume 11.1 H Neutrophils % 75.6 Lymphocytes % 13.6 L Monocytes % 6.6 Eosinophils % 3.2 Basophils % 0.4 Nucleated Red Blood Cells % 0.0 Neutrophils # (Manual) 9.3 H Lymphocytes # 1.7 Monocytes # 0.8 Eosinophils # 0.4 Basophils # 0.1 Nucleated Red Blood Cells # 0.0 Sodium Level 153 H Potassium Level 3.2 L Chloride Level 114 H Carbon Dioxide Level 28 Anion Gap 14 Blood Urea Nitrogen 21 H Creatinine 0.81 Glucose Level 89 # Calcium Level 8.2 L Bedside Glucose 85 Medications Medications Current Medications Ondansetron HCl (Zofran Inj) 4 mg Q6H PRN IV NAUSEA AND/OR VOMITING; Start at 03:30 Acetaminophen (Tylenol Liquid) 650 mg Q6H PRN PO PAIN LEVEL 1-3 OR FEVER; Start 10/22/16 at 03:30 Morphine Sulfate (morphine) 2 mg Q4H PRN IV PAIN LEVEL 7-10; Start 10/22/16 at 03:30 Lorazepam (Ativan) 0.5 mg Q4H PRN IV ANXIETY; Start 10/22/16 at 03:30 Famotidine (Pepcid Iv) 20 mg DAILY IV Last administered on 10/23/16t 09:06; Admin Dose 20 MG; Start 10/22/16 at 09:00 Carvedilol (Coreg) 6.25 mg BID PO Last administered on 10/23/16 09:08; Admin Dose 6.25 MG; Start 10/22/16 at 09:00 Fenofibrate (Tricor) 145 mg DAILY PO Last administered on 10/23/16 09:08; Admin Dose 145 MG; Start 10/22/16 at 09:00 Ferrous Sulfate (Ferrous Sulfate (Ec)) 325 mg DAILY PO Last administered on 09:08; Admin Dose 325 MG; Start 10/22/16 at 09:00 Diagnostic Test (Pha) 1 ea 1 ea 02 XX ; Start 10/23/16 at 02:00 Levofloxacin/ Dextrose (Levaquin 250 Mg/ D5W 50 ml (Pmx)) 50 ml @ 50 mls/hr Q24H IVPB Last administered on 10/23/16 05:30; Admin Dose 50 MLS/HR; Start at 06:00 Miscellaneous Information 1 ea NOTE XX ; Start 10/22/16 at 03:45 Glucose (Glutose) 15 gm Q15M PRN PO DECREASED GLUCOSE; Start 10/22/16 at 03:45 Glucose (Glutose) 22.5 gm Q15M PRN PO DECREASED GLUCOSE; Start 10/22/16 at 03: 45 Dextrose (D50w Syringe) 25 ml Q15M PRN IV DECREASED GLUCOSE; Start 10/22/16 at 03:45 Dextrose (D50w Syringe) 50 ml Q15M PRN IV DECREASED GLUCOSE; Start 10/22/16 at 03:45 Glucagon (Glucagen) 1 mg Q15M PRN IM DECREASED GLUCOSE; Start 10/22/16 at 03:45 Glucose (Glutose) 15 gm Q15M PRN BUCCAL DECREASED GLUCOSE; Start 10/22/16 at 03 :45 Labetalol HCl 10 mg 10 mg Q2H PRN IV sbp > 160 Last administered on 10/22/16 05:53; Admin Dose 10 MG; Start 10/22/16 at 05:00 Nicardipine HCl (Cardene Iv) 200 ml @ 50 mls/hr TITRATE IV Last administered on 10/23/16 09:04; Admin Dose 50 MLS/HR; Start 10/22/16 at 05:20 Insulin Glargine (Lantus) 6 unit QHS SC Last administered on 10/22/16t 21:16; Admin Dose 6 UNIT; Start 10/22/16 at 21:00 REGAN CAMARENA Oct 23, 2016 09:35
[2016-10-23] MEDS: INSULIN GLARGINE [LANtus] 3 ML PEN SC SCH (21:00)
[2016-10-23] MEDS ORDERED: INSULIN GLARGINE [LANtus] 3 ML PEN SC SCH (21:30)
[2016-10-24] VITALS (39 sets, daily range): BP systolic 92–160; BP diastolic 44–82; PULSE 59–102; RESP 14–25
[2016-10-24] MEDS: ACCU-CHEK XX SCH (02:00)
[2016-10-24] MEDS: LEVOFLOXACIN 250MG/D5W (PMX) 50 ML IVPB SCH (05:51)
[2016-10-24 07:07] LABS: BASOPHILS % 0.3 % (0.0-2.0); EOSINOPHILS # 0.4 10^3/ul (0.0-0.5); EOSINOPHILS % 3.8 % (0.0-7.0); HEMATOCRIT 26.1 % (37.0-47.0); HEMOGLOBIN 8.1 g/dl (12.0-16.0); LYMPHOCYTES # 1.9 10^3/ul (0.8-2.9); LYMPHOCYTES % 18.8 % (15.0-51.0); MEAN CORPUSCULAR HEMOGLOBIN 25.9 pg (29.0-33.0); MEAN CORPUSCULAR VOLUME 83.4 fl (82.0-101.0); MEAN PLATELET VOLUME 10.8 fl (7.4-10.4); MONOCYTE # 0.7 10^3/ul (0.3-0.9); MONOCYTES % 6.8 % (0.0-11.0); NEUTROPHILS % 69.9 % (39.0-77.0); PLATELET COUNT 434 10^3/UL (140-415); RED BLOOD COUNT 3.13 10^6/ul (4.20-5.40); RED CELL DISTRIBUTION WIDTH 17.3 % (11.5-14.5); WHITE BLOOD COUNT 10.1 10^3/ul (4.8-10.8)
[2016-10-24] MEDS: INSULIN ASPART [NOVOLOG] 3 ML PEN SC SCH ×4 (07:35→20:32)
[2016-10-24 07:45] LABS: CREATININE 0.82 mg/dl (0.44-1.00); POTASSIUM 3.1 mmol/L (3.5-5.1)
--- NOTE | 2016-10-24 08:08 | PN ---
DATE: 10/24/2016 SUBJECTIVE DATA: The patient is stable. No events overnight. No fevers, chills, nausea, vomiting. OBJECTIVE DATA: VITAL SIGNS: Blood pressure 130/50, respirations 18, pulse 53, temperature 98.2. HEENT: Head is normocephalic. NECK: Supple. HEART: Regular rate. LUNGS: Show diminished breath sounds at the base. ABDOMEN: Soft, nontender to palpation. No rebound or guarding. EXTREMITIES: Negative for clubbing, cyanosis. No edema. DERMATOLOGIC: Clean. No rashes. MUSCULOSKELETAL: No joint effusion. NEUROLOGIC: No change in exam. MEDICATIONS: Reviewed. LABORATORY AND DIAGNOSTIC DATA: Shows a white count 10.1, hemoglobin 8.1, crit 26.1, platelet count is 434. Patient's BMP is pending. ASSESSMENT AND PLAN: 1. Nonoliguric acute kidney injury with unknown baseline creatinine. Etiology secondary to hemodynamics. Renal function has improved. Continue current treatment, supportive care. Renally dose all meds. 2. Hypernatremia. The patient's sodium levels continue to be elevated. Patient has a free water deficit of 2 L. We will start the patient on D5 water. 3. Hypokalemia. Continue to monitor and replete. 4. Hypertensive urgency. The patient is status post Cardene drip. 5. Acute intracranial hemorrhage secondary to hypertension. Repeat CT scan shows decreased size, left basal ganglia. Continue to monitor. Follow up with Neurosurgery. 6. Acute cerebrovascular accident. 7. Acute encephalopathy. Continue current medical management. 8. Sepsis. Continue antibiotic regimen. 9. Diabetes. Continue Accu-Cheks and insulin sliding scale. Dictated By: Norberto Adkins DO /grace/haresh /Document#: [id number]
[2016-10-24] MEDS: FERROUS SULFATE (EC) 325 MG TAB PO SCH (09:00)
[2016-10-24] MEDS: FENOFIBRATE 145 MG TAB PO SCH (09:11)
[2016-10-24] MEDS: FAMOTIDINE 20 MG TAB PO SCH (09:11)
--- NOTE | 2016-10-24 09:45 | PN ---
Date/Time of Note Date/Time of Note DATE: 10/24/16 TIME: 09:44 Assessment/Plan VTE Prophylaxis VTE Prophylaxis Intervention: contraindicated Lines/Catheters IV Catheter Type (from [facility]): Peripheral IV Urinary Cath still in place: Yes Reason Cath still needed: urinary retention Assessment/Plan Chief Complaint/Hosp Course Assessment and plan: 86-year-old female with a history of hypertension, independent diabetes, dyslipidemia, dementia who was brought in for altered mentation, found with intracranial hemorrhage. 1. Acute intracranial hemorrhage -initial CT had showed:Acute left globus pallidus intracranial hemorrhage with mild surrounding edema. Repeat Head CT 2 days ago = Slightly decreased left basal ganglia intracranial hemorrhage over interval since CT from 10/21/2016. -keep Systolic blood pressure goal should be less than 140, off cardene drip now , continue to monitor and PO bp meds -Frequent neuro checks -Follow-up neurosurgery recommendations, likely transfer to floor today - PT eval/tx 2. Altered mentation, secondary to above: Patient does have a history of dementia but acutely worsened secondary to above. Slowly improving, but still present -Continue frequent neuro checks 3. Hypertension: Currently blood pressure at goal this morning less than 140 systolic -Continue antihypertensives with adjustment as needed 4. Sepsis, as evidenced by leukocytosis and tachypnea, secondary to pneumonia and likely UTI - continue IV antibiotic for now -Blood culture results, respiratory and urine culture results as well follow-up 5. Diabetes with hyperglycemia: A1c equals 7.6 -Insulin with adjustment as needed 6. History of dyslipidemia -Continue home med Critical care time spent on patient care today equals 45 minutes Problems: Subjective 24 Hr Interval Summary Free Text/Dictation Pt off restraints, and off cardene drip since last night. Per family, less confusion, although still present. Exam/Review of Systems Vital Signs Vitals Vital Signs Date Time Temp Pulse Resp B/P Pulse Ox O2 Delivery O2 Flow Rate FiO2 10/24/16 08:00 Nasal Cannula 3.0 10/24/16 08:00 97.5 10/24/16 07:00 63 18 96 Intake and Output 10/23/16 10/23/16 10/24/16 15:00 23:00 07:00 Intake Total 710 ml 1000 ml 50 ml Output Total 635 ml 500 ml 260 ml Balance 75 ml 500 ml -210 ml Exam Constitutional: lying in bed, family at bedside Head: atraumatic, normocephalic Eyes: PERRL Respiratory: less diminished breath sounds Cardiovascular: regular rate and rhythm, systolic murmur Gastrointestinal: soft Musculoskeletal: other (Right foot pitting edema noted. She has a few scattered superficial ulceration on lower extremity) Results Result Diagram: 10/24/16 0655 10/24/16 0655 Results 24 hrs Laboratory Tests Test 10/23/16 12:11 10/23/16 17:25 10/23/16 21:13 10/24/16 02:01 Bedside Glucose 165 169 227 H 148 Test 10/24/16 06:55 10/24/16 07:47 10/24/16 08:26 White Blood Count 10.1 Red Blood Count 3.13 L Hemoglobin 8.1 L Hematocrit 26.1 L Mean Corpuscular Volume 83.4 Mean Corpuscular Hemoglobin 25.9 L Mean Corpuscular Hemoglobin Concent 31.0 L Red Cell Distribution Width 17.3 H Platelet Count 434 H Mean Platelet Volume 10.8 H Neutrophils % 69.9 Lymphocytes % 18.8 Monocytes % 6.8 Eosinophils % 3.8 Basophils % 0.3 Nucleated Red Blood Cells % 0.0 Neutrophils # (Manual) 7.1 Lymphocytes # 1.9 Monocytes # 0.7 Eosinophils # 0.4 Basophils # 0.0 Nucleated Red Blood Cells # 0.0 Sodium Level 141 Potassium Level 3.1 L Chloride Level 108 Carbon Dioxide Level 29 Anion Gap 7 L Blood Urea Nitrogen 26 H Creatinine 0.82 Glucose Level 63 #L Calcium Level 8.0 L Bedside Glucose 52 L 84 Medications Medications Current Medications Ondansetron HCl (Zofran Inj) 4 mg Q6H PRN IV NAUSEA AND/OR VOMITING; Start at 03:30 Acetaminophen (Tylenol Liquid) 650 mg Q6H PRN PO PAIN LEVEL 1-3 OR FEVER; Start 10/22/16 at 03:30 Morphine Sulfate (morphine) 2 mg Q4H PRN IV PAIN LEVEL 7-10; Start 10/22/16 at 03:30 Lorazepam (Ativan) 0.5 mg Q4H PRN IV ANXIETY; Start 10/22/16 at 03:30 Carvedilol (Coreg) 6.25 mg BID PO Last administered on 10/24/16t 09:12; Admin Dose 6.25 MG; Start 10/22/16 at 09:00 Fenofibrate (Tricor) 145 mg DAILY PO Last administered on 10/24/16 09:11; Admin Dose 145 MG; Start 10/22/16 at 09:00 Ferrous Sulfate 325 mg 325 mg DAILY PO Last administered on 10/23/16 09:08; Admin Dose 325 MG; Start 10/22/16 at 09:00 Levofloxacin/ Dextrose (Levaquin 250 Mg/ D5W 50 ml (Pmx)) 50 ml @ 50 mls/hr Q24H IVPB Last administered on 10/24/16 05:51; Admin Dose 50 MLS/HR; Start at 06:00 Miscellaneous Information 1 ea NOTE XX ; Start 10/22/16 at 03:45 Glucose (Glutose) 15 gm Q15M PRN PO DECREASED GLUCOSE; Start 10/22/16 at 03:45 Glucose (Glutose) 22.5 gm Q15M PRN PO DECREASED GLUCOSE; Start 10/22/16 at 03: 45 Dextrose (D50w Syringe) 25 ml Q15M PRN IV DECREASED GLUCOSE; Start 10/22/16 at 03:45 Dextrose (D50w Syringe) 50 ml Q15M PRN IV DECREASED GLUCOSE; Start 10/22/16 at 03:45 Glucagon (Glucagen) 1 mg Q15M PRN IM DECREASED GLUCOSE; Start 10/22/16 at 03:45 Glucose (Glutose) 15 gm Q15M PRN BUCCAL DECREASED GLUCOSE; Start 10/22/16 at 03 :45 Labetalol HCl 10 mg 10 mg Q2H PRN IV sbp > 160 Last administered on 10/22/16 05:53; Admin Dose 10 MG; Start 10/22/16 at 05:00 Nicardipine HCl (Cardene Iv) 200 ml @ 50 mls/hr TITRATE IV Last administered on 10/23/16 17:27; Admin Dose 50 MLS/HR; Start 10/22/16 at 05:20 Famotidine (Pepcid) 20 mg DAILY PO Last administered on 10/24/16 09:11; Admin Dose 20 MG; Start 10/24/16 at 09:00 Diagnostic Test (Pha) (Accu-Chek) 1 ea 02 XX ; Start 10/25/16 at 02:00 Diagnostic Test (Pha) 1 ea 1 ea 02 XX ; Start 10/25/16 at 02:00 Potassium Chloride (KCl 40 MEQ/250 ML NS) 250 ml @ 62.5 mls/hr Q4H IVPB ; Start 10/24/16 at 09:30; Stop 10/24/16 at 17:29 Insulin Glargine (Lantus) 6 unit QHS SC ; Start 10/24/16 at 21:00; Status REGAN QUACH Oct 24, 2016 09:45
[2016-10-24] MEDS: POTASSIUM CHLORIDE 250 ML IVPB SCH ×2 (10:07→15:16)
[2016-10-24] MEDS: INSULIN GLARGINE [LANtus] 3 ML PEN SC SCH (20:30)
[2016-10-24] MEDS ORDERED: INSULIN GLARGINE [LANtus] 3 ML PEN SC SCH (21:00)
[2016-10-25] VITALS (11 sets, daily range): BP systolic 136–196; BP diastolic 66–90; PULSE 59–90; RESP 18–20
[2016-10-25] MEDS: ACCU-CHEK XX SCH ×2 (02:00)
[2016-10-25] MEDS: LEVOFLOXACIN 250MG/D5W (PMX) 50 ML IVPB SCH (07:00)
[2016-10-25] MEDS: LABETALOL HCL 20MG INJ IV PRN ×2 (07:03→09:03)
[2016-10-25] MEDS: INSULIN ASPART [NOVOLOG] 3 ML PEN SC SCH ×4 (08:00→22:19)
[2016-10-25] MEDS: FERROUS SULFATE (EC) 325 MG TAB PO SCH (08:58)
[2016-10-25] MEDS: FAMOTIDINE 20 MG TAB PO SCH (08:58)
[2016-10-25] MEDS: FENOFIBRATE 145 MG TAB PO SCH (08:59)
[2016-10-25 09:26] LABS: BASOPHILS % 0.3 % (0.0-2.0); EOSINOPHILS # 0.4 10^3/ul (0.0-0.5); EOSINOPHILS % 3.8 % (0.0-7.0); HEMATOCRIT 29.2 % (37.0-47.0); HEMOGLOBIN 8.8 g/dl (12.0-16.0); LYMPHOCYTES # 2.5 10^3/ul (0.8-2.9); LYMPHOCYTES % 21.3 % (15.0-51.0); MEAN CORPUSCULAR HEMOGLOBIN 25.3 pg (29.0-33.0); MEAN CORPUSCULAR HGB CONC 30.1 g/dl (32.0-37.0); MEAN CORPUSCULAR VOLUME 83.9 fl (82.0-101.0); MEAN PLATELET VOLUME 11.8 fl (7.4-10.4); MONOCYTE # 0.9 10^3/ul (0.3-0.9); MONOCYTES % 7.4 % (0.0-11.0); NEUTROPHILS % 66.6 % (39.0-77.0); PLATELET COUNT 539 10^3/UL (140-415); RED BLOOD COUNT 3.48 10^6/ul (4.20-5.40); RED CELL DISTRIBUTION WIDTH 17.6 % (11.5-14.5); WHITE BLOOD COUNT 11.7 10^3/ul (4.8-10.8)
[2016-10-25 09:41] LABS: CALCIUM 8.5 mg/dl (8.4-10.2); CREATININE 0.88 mg/dl (0.44-1.00); POTASSIUM 4.1 mmol/L (3.5-5.1)
--- NOTE | 2016-10-25 12:30 | PN ---
Date/Time of Note Date/Time of Note DATE: 10/25/16 TIME: 12:29 Assessment/Plan VTE Prophylaxis VTE Prophylaxis Intervention: other Lines/Catheters [facility]from [facility] Saline Lock Urinary Cath still in place: Yes Reason Cath still needed: urinary retention Assessment/Plan Chief Complaint/Hosp Course SUBJECTIVE DATA: The patient is stable. No events overnight. No fevers, chills, nausea, vomiting. OBJECTIVE DATA: HEENT: Head is normocephalic. NECK: Supple. HEART: Regular rate. LUNGS: Show diminished breath sounds at the base. ABDOMEN: Soft, nontender to palpation. No rebound or guarding. EXTREMITIES: Negative for clubbing, cyanosis. No edema. DERMATOLOGIC: Clean. No rashes. MUSCULOSKELETAL: No joint effusion. NEUROLOGIC: No change in exam. MEDICATIONS: Reviewed. ASSESSMENT AND PLAN: 1. Nonoliguric acute kidney injury. Etiology secondary to hemodynamics. Renal function has improved. Continue current treatment, supportive care. Renally dose all meds. 2. Hypernatremia. The patient's sodium levels continue to be elevated. Patient has a free water deficit of 2 L. We will start the patient on D5 water. 3. Hypokalemia. Continue to monitor and replete. 4. Hypertensive urgency. The patient is status post Cardene drip. 5. Acute intracranial hemorrhage secondary to hypertension. Repeat CT scan shows decreased size, left basal ganglia. Continue to monitor. Follow up with Neurosurgery. 6. Acute cerebrovascular accident. 7. Acute encephalopathy. Continue current medical management. 8. Sepsis. Continue antibiotic regimen. 9. Diabetes. Continue Accu-Cheks and insulin sliding scale. will follow prn thanks Problems: Exam/Review of Systems Vital Signs Vitals Vital Signs Date Time Temp Pulse Resp B/P Pulse Ox O2 Delivery O2 Flow Rate FiO2 10/25/16 12:14 62 10/25/16 11:34 97.6 20 150/67 98 10/24/16 19:00 5.0 10/24/16 18:11 Nasal Cannula Intake and Output 10/24/16 10/24/16 10/25/16 15:00 23:00 07:00 Intake Total 608.0 ml 245.0 ml Output Total 335 ml 70 ml Balance 273.0 ml 175.0 ml Results Result Diagram: 10/25/16 0829 10/25/16 0829 Results 24 hrs Laboratory Tests Test 10/24/16 17:41 10/24/16 20:13 10/25/16 08:29 10/25/16 08:45 Bedside Glucose 140 202 69 L White Blood Count 11.7 H Red Blood Count 3.48 L Hemoglobin 8.8 L Hematocrit 29.2 L Mean Corpuscular Volume 83.9 Mean Corpuscular Hemoglobin 25.3 L Mean Corpuscular Hemoglobin Concent 30.1 L Red Cell Distribution Width 17.6 H Platelet Count 539 #H Mean Platelet Volume 11.8 H Neutrophils % 66.6 Lymphocytes % 21.3 Monocytes % 7.4 Eosinophils % 3.8 Basophils % 0.3 Nucleated Red Blood Cells % 0.0 Neutrophils # (Manual) 7.8 H Lymphocytes # 2.5 Monocytes # 0.9 Eosinophils # 0.4 Basophils # 0.0 Nucleated Red Blood Cells # 0.0 Sodium Level 141 Potassium Level 4.1 Chloride Level 109 Carbon Dioxide Level 28 Anion Gap 8 Blood Urea Nitrogen 28 H Creatinine 0.88 Glucose Level 62 L Calcium Level 8.5 Medications Medications Current Medications Ondansetron HCl (Zofran Inj) 4 mg Q6H PRN IV NAUSEA AND/OR VOMITING; Start at 03:30 Acetaminophen (Tylenol Liquid) 650 mg Q6H PRN PO PAIN LEVEL 1-3 OR FEVER; Start 10/22/16 at 03:30 Morphine Sulfate (morphine) 2 mg Q4H PRN IV PAIN LEVEL 7-10; Start 10/22/16 at 03:30 Lorazepam (Ativan) 0.5 mg Q4H PRN IV ANXIETY; Start 10/22/16 at 03:30 Carvedilol (Coreg) 6.25 mg BID PO Last administered on 10/25/16 08:58; Admin Dose 6.25 MG; Start 10/22/16 at 09:00 Fenofibrate (Tricor) 145 mg DAILY PO Last administered on 10/25/16 08:59; Admin Dose 145 MG; Start 10/22/16 at 09:00 Ferrous Sulfate 325 mg 325 mg DAILY PO Last administered on 10/25/16 08:58; Admin Dose 325 MG; Start 10/22/16 at 09:00 Levofloxacin/ Dextrose (Levaquin 250 Mg/ D5W 50 ml (Pmx)) 50 ml @ 50 mls/hr Q24H IVPB Last administered on 10/24/16 05:51; Admin Dose 50 MLS/HR; Start at 06:00 Miscellaneous Information 1 ea NOTE XX Last administered on 10/25/16 08:47; Admin Dose 1 EA; Start 10/22/16 at 03:45 Glucose (Glutose) 15 gm Q15M PRN PO DECREASED GLUCOSE; Start 10/22/16 at 03:45 Glucose (Glutose) 22.5 gm Q15M PRN PO DECREASED GLUCOSE; Start 10/22/16 at 03: 45 Dextrose (D50w Syringe) 25 ml Q15M PRN IV DECREASED GLUCOSE; Start 10/22/16 at 03:45 Dextrose (D50w Syringe) 50 ml Q15M PRN IV DECREASED GLUCOSE; Start 10/22/16 at 03:45 Glucagon (Glucagen) 1 mg Q15M PRN IM DECREASED GLUCOSE; Start 10/22/16 at 03:45 Glucose (Glutose) 15 gm Q15M PRN BUCCAL DECREASED GLUCOSE; Start 10/22/16 at 03 :45 Labetalol HCl (Labetalol) 10 mg Q2H PRN IV sbp > 160 Last administered on 09:03; Admin Dose 10 MG; Start 10/22/16 at 05:00 Famotidine (Pepcid) 20 mg DAILY PO Last administered on 10/25/16 08:58; Admin Dose 20 MG; Start 10/24/16 at 09:00 Diagnostic Test (Pha) (Accu-Chek) 1 ea 02 XX ; Start 10/25/16 at 02:00 Diagnostic Test (Pha) (Accu-Chek) 1 ea 02 XX ; Start 10/25/16 at 02:00 Insulin Glargine (Lantus) 6 unit QHS SC Last administered on 10/24/16 20:30; Admin Dose 6 UNIT; Start 10/24/16 at 21:00 CARLOTTA CAMPBELL DO Oct 25, 2016 12:30
--- NOTE | 2016-10-25 16:20 | PN ---
Date/Time of Note Date/Time of Note DATE: 10/25/16 TIME: 16:16 Assessment/Plan VTE Prophylaxis VTE Prophylaxis Intervention: contraindicated VTE Contraindication Reason: bleeding Lines/Catheters IV Catheter Type (from [facility]): Saline Lock Urinary Cath still in place: Yes Reason Cath still needed: urinary retention Assessment/Plan Chief Complaint/Hosp Course Assessment and plan: 86-year-old female with a history of hypertension, independent diabetes, dyslipidemia, dementia who was brought in for altered mentation, found with intracranial hemorrhage. 1. Acute intracranial hemorrhage -initial CT had showed:Acute left globus pallidus intracranial hemorrhage with mild surrounding edema. Repeat Head CT 3 days ago = Slightly decreased left basal ganglia intracranial hemorrhage over interval since CT from 10/21/2016. -keep Systolic blood pressure goal should be less than 140, off cardene drip now , continue to monitor and PO bp meds -Frequent neuro checks -Follow-up neurosurgery recommendations -PT eval/tx 2. Altered mentation, secondary to above: Patient does have a history of dementia but acutely worsened secondary to above. Slowly improving. -Continue frequent neuro checks 3. Hypertension: Currently blood pressure at goal this morning less than 140 systolic -Continue antihypertensives with adjustment as needed 4. Sepsis, as evidenced by leukocytosis and tachypnea, secondary to pneumonia and likely UTI - continue IV antibiotic for now -Blood culture results, respiratory and urine culture results as well follow-up 5. Diabetes with hyperglycemia: A1c equals 7.6 -Insulin with adjustment as needed 6. History of dyslipidemia -Continue home med Problems: Subjective 24 Hr Interval Summary Free Text/Dictation Patient transferred out of intensive care unit yesterday. Still having some confusion episodes, otherwise no acute events overnight. Exam/Review of Systems Vital Signs Vitals Vital Signs Date Time Temp Pulse Resp B/P Pulse Ox O2 Delivery O2 Flow Rate FiO2 10/25/16 16:07 97.5 69 20 171/77 97 10/25/16 08:15 Nasal Cannula 2.0 Intake and Output 10/24/16 10/24/16 10/25/16 15:00 23:00 07:00 Intake Total 608.0 ml 245.0 ml Output Total 335 ml 70 ml Balance 273.0 ml 175.0 ml Exam Constitutional: lying in bed Head: atraumatic, normocephalic Eyes: PERRL Respiratory: less diminished breath sounds Cardiovascular: regular rate and rhythm, systolic murmur Gastrointestinal: soft Musculoskeletal: other (Right foot pitting edema noted. She has a few scattered superficial ulceration on lower extremity) Results Result Diagram: 10/25/16 0810/25/16 08 Results 24 hrs Laboratory Tests Test 10/24/16 17:41 10/24/16 20:13 10/25/16 08:29 10/25/16 08:45 Bedside Glucose 140 202 69 L White Blood Count 11.7 H Red Blood Count 3.48 L Hemoglobin 8.8 L Hematocrit 29.2 L Mean Corpuscular Volume 83.9 Mean Corpuscular Hemoglobin 25.3 L Mean Corpuscular Hemoglobin Concent 30.1 L Red Cell Distribution Width 17.6 H Platelet Count 539 #H Mean Platelet Volume 11.8 H Neutrophils % 66.6 Lymphocytes % 21.3 Monocytes % 7.4 Eosinophils % 3.8 Basophils % 0.3 Nucleated Red Blood Cells % 0.0 Neutrophils # (Manual) 7.8 H Lymphocytes # 2.5 Monocytes # 0.9 Eosinophils # 0.4 Basophils # 0.0 Nucleated Red Blood Cells # 0.0 Sodium Level 141 Potassium Level 4.1 Chloride Level 109 Carbon Dioxide Level 28 Anion Gap 8 Blood Urea Nitrogen 28 H Creatinine 0.88 Glucose Level 62 L Calcium Level 8.5 Test 10/25/16 12:33 Bedside Glucose 125 Medications Medications Current Medications Ondansetron HCl (Zofran Inj) 4 mg Q6H PRN IV NAUSEA AND/OR VOMITING; Start at 03:30 Acetaminophen (Tylenol Liquid) 650 mg Q6H PRN PO PAIN LEVEL 1-3 OR FEVER; Start 10/22/16 at 03:30 Morphine Sulfate (morphine) 2 mg Q4H PRN IV PAIN LEVEL 7-10; Start 10/22/16 at 03:30 Lorazepam (Ativan) 0.5 mg Q4H PRN IV ANXIETY; Start 10/22/16 at 03:30 Carvedilol (Coreg) 6.25 mg BID PO Last administered on 10/25/16 08:58; Admin Dose 6.25 MG; Start 10/22/16 at 09:00 Fenofibrate (Tricor) 145 mg DAILY PO Last administered on 10/25/16 08:59; Admin Dose 145 MG; Start 10/22/16 at 09:00 Ferrous Sulfate 325 mg 325 mg DAILY PO Last administered on 10/25/16 08:58; Admin Dose 325 MG; Start 10/22/16 at 09:00 Levofloxacin/ Dextrose (Levaquin 250 Mg/ D5W 50 ml (Pmx)) 50 ml @ 50 mls/hr Q24H IVPB Last administered on 10/24/16 05:51; Admin Dose 50 MLS/HR; Start at 06:00 Miscellaneous Information 1 ea NOTE XX Last administered on 10/25/16 08:47; Admin Dose 1 EA; Start 10/22/16 at 03:45 Glucose (Glutose) 15 gm Q15M PRN PO DECREASED GLUCOSE; Start 10/22/16 at 03:45 Glucose (Glutose) 22.5 gm Q15M PRN PO DECREASED GLUCOSE; Start 10/22/16 at 03: 45 Dextrose (D50w Syringe) 25 ml Q15M PRN IV DECREASED GLUCOSE; Start 10/22/16 at 03:45 Dextrose (D50w Syringe) 50 ml Q15M PRN IV DECREASED GLUCOSE; Start 10/22/16 at 03:45 Glucagon (Glucagen) 1 mg Q15M PRN IM DECREASED GLUCOSE; Start 10/22/16 at 03:45 Glucose (Glutose) 15 gm Q15M PRN BUCCAL DECREASED GLUCOSE; Start 10/22/16 at 03 :45 Labetalol HCl (Labetalol) 10 mg Q2H PRN IV sbp > 160 Last administered on 09:03; Admin Dose 10 MG; Start 10/22/16 at 05:00 Famotidine (Pepcid) 20 mg DAILY PO Last administered on 10/25/16 08:58; Admin Dose 20 MG; Start 10/24/16 at 09:00 Diagnostic Test (Pha) (Accu-Chek) 1 ea 02 XX ; Start 10/25/16 at 02:00 Diagnostic Test (Pha) (Accu-Chek) 1 ea 02 XX ; Start 10/25/16 at 02:00 Insulin Glargine (Lantus) 6 unit QHS SC Last administered on 10/24/16 20:30; Admin Dose 6 UNIT; Start 10/24/16 at 21:00 Hydralazine HCl (Apresoline) 10 mg Q6H PRN IV ELEVATED BLOOD PRESSURE; Start at 16:30; Status REGAN QUACH Oct 25, 2016 16:20
[2016-10-25] MEDS: hydrALAzine 20 MG INJ IV PRN (17:12)
[2016-10-25] MEDS: INSULIN GLARGINE [LANtus] 3 ML PEN SC SCH (22:21)
[2016-10-26] VITALS (26 sets, daily range): BP systolic 126–206; BP diastolic 43–86; PULSE 63–104; RESP 17–28
[2016-10-26] MEDS: ACCU-CHEK XX SCH ×2 (02:00)
[2016-10-26] MEDS: LEVOFLOXACIN 250MG/D5W (PMX) 50 ML IVPB SCH (06:04)
[2016-10-26] MEDS: INSULIN ASPART [NOVOLOG] 3 ML PEN SC SCH ×4 (08:00→21:00)
[2016-10-26] MEDS: FAMOTIDINE 20 MG TAB PO SCH (08:01)
[2016-10-26] MEDS: FERROUS SULFATE (EC) 325 MG TAB PO SCH (08:01)
[2016-10-26] MEDS: FENOFIBRATE 145 MG TAB PO SCH (08:01)
--- NOTE | 2016-10-26 10:24 | PN ---
Date/Time of Note Date/Time of Note DATE: 10/26/16 TIME: 10:24 Assessment/Plan VTE Prophylaxis VTE Prophylaxis Intervention: other Lines/Catheters IV [facility] Type (from [facility] Saline Lock Urinary Cath still in place: Yes Reason Cath still needed: urinary retention Assessment/Plan Chief Complaint/Hosp Course SUBJECTIVE DATA: The patient is stable. No events overnight. No fevers, chills, nausea, vomiting. OBJECTIVE DATA: HEENT: Head is normocephalic. NECK: Supple. HEART: Regular rate. LUNGS: Show diminished breath sounds at the base. ABDOMEN: Soft, nontender to palpation. No rebound or guarding. EXTREMITIES: Negative for clubbing, cyanosis. No edema. DERMATOLOGIC: Clean. No rashes. MUSCULOSKELETAL: No joint effusion. NEUROLOGIC: No change in exam. MEDICATIONS: Reviewed. ASSESSMENT AND PLAN: 1. Nonoliguric acute kidney injury. Etiology secondary to hemodynamics. Renal function has improved. Continue current treatment, supportive care. Renally dose all meds. 2. Hypernatremia. The patient's sodium levels continue to be elevated. Patient has a free water deficit of 2 L. We will start the patient on D5 water. 3. Hypokalemia. Continue to monitor and replete. 4. Hypertensive urgency. The patient is status post Cardene drip. 5. Acute intracranial hemorrhage secondary to hypertension. Repeat CT scan shows decreased size, left basal ganglia. Continue to monitor. Follow up with Neurosurgery. 6. Acute cerebrovascular accident. 7. Acute encephalopathy. Continue current medical management. 8. Sepsis. Continue antibiotic regimen. 9. Diabetes. Continue Accu-Cheks and insulin sliding scale. will follow prn thanks Problems: Exam/Review of Systems Vital Signs Vitals Vital Signs Date Time Temp Pulse Resp B/P Pulse Ox O2 Delivery O2 Flow Rate FiO2 10/26/16 08:12 64 10/26/16 08:02 99.0 21 206/86 99 10/25/16 23:29 Nasal Cannula 2.0 Intake and Output 10/25/16 10/25/16 10/26/16 15:00 23:00 07:00 Intake Total 400 ml 150 ml Output Total 200 ml 850 ml Balance 200 ml -700 ml Results Result Diagram: 10/25/16 0829 10/25/16 0829 Results 24 hrs Laboratory Tests Test 10/25/16 12:33 10/25/16 17:16 9/2/17 20:54 10/25/16 22:17 Bedside Glucose 125 202 210 183 Test 10/26/16 02:22 10/26/16 07:57 10/26/16 09:25 Bedside Glucose 115 72 White Blood Count Pending Red Blood Count Pending Hemoglobin Pending Hematocrit Pending Mean Corpuscular Volume Pending Mean Corpuscular Hemoglobin Pending Mean Corpuscular Hemoglobin Concent Pending Red Cell Distribution Width Pending Platelet Count Pending Mean Platelet Volume Pending Medications Medications Current Medications Ondansetron HCl (Zofran Inj) 4 mg Q6H PRN IV NAUSEA AND/OR VOMITING; Start at 03:30 Acetaminophen (Tylenol Liquid) 650 mg Q6H PRN PO PAIN LEVEL 1-3 OR FEVER; Start 10/22/16 at 03:30 Morphine Sulfate (morphine) 2 mg Q4H PRN IV PAIN LEVEL 7-10; Start 10/22/16 at 03:30 Lorazepam (Ativan) 0.5 mg Q4H PRN IV ANXIETY; Start 10/22/16 at 03:30 Carvedilol (Coreg) 6.25 mg BID PO Last administered on 10/26/16 08:01; Admin Dose 6.25 MG; Start 10/22/16 at 09:00 Fenofibrate (Tricor) 145 mg DAILY PO Last administered on 10/26/16 08:01; Admin Dose 145 MG; Start 10/22/16 at 09:00 Ferrous Sulfate 325 mg 325 mg DAILY PO Last administered on 10/26/16 08:01; Admin Dose 325 MG; Start 10/22/16 at 09:00 Levofloxacin/ Dextrose (Levaquin 250 Mg/ D5W 50 ml (Pmx)) 50 ml @ 50 mls/hr Q24H IVPB Last administered on 10/26/16 06:04; Admin Dose 50 MLS/HR; Start at 06:00 Miscellaneous Information 1 ea NOTE XX Last administered on 10/25/16 08:47; Admin Dose 1 EA; Start 10/22/16 at 03:45 Glucose (Glutose) 15 gm Q15M PRN PO DECREASED GLUCOSE; Start 10/22/16 at 03:45 Glucose (Glutose) 22.5 gm Q15M PRN PO DECREASED GLUCOSE; Start 10/22/16 at 03: 45 Dextrose (D50w Syringe) 25 ml Q15M PRN IV DECREASED GLUCOSE; Start 10/22/16 at 03:45 Dextrose (D50w Syringe) 50 ml Q15M PRN IV DECREASED GLUCOSE; Start 10/22/16 at 03:45 Glucagon (Glucagen) 1 mg Q15M PRN IM DECREASED GLUCOSE; Start 10/22/16 at 03:45 Glucose (Glutose) 15 gm Q15M PRN BUCCAL DECREASED GLUCOSE; Start 10/22/16 at 03 :45 Labetalol HCl (Labetalol) 10 mg Q2H PRN IV sbp > 160 Last administered on 09:03; Admin Dose 10 MG; Start 10/22/16 at 05:00 Famotidine (Pepcid) 20 mg DAILY PO Last administered on 10/26/16 08:01; Admin Dose 20 MG; Start 10/24/16 at 09:00 Diagnostic Test (Pha) (Accu-Chek) 1 ea 02 XX ; Start 10/25/16 at 02:00 Diagnostic Test (Pha) (Accu-Chek) 1 ea 02 XX ; Start 10/25/16 at 02:00 Insulin Glargine (Lantus) 6 unit QHS SC Last administered on 10/25/16 22:21; Admin Dose 6 UNIT; Start 10/24/16 at 21:00 Hydralazine HCl (Apresoline) 10 mg Q6H PRN IV ELEVATED BLOOD PRESSURE Last administered on 10/25/16 17:12; Admin Dose 10 MG; Start 10/25/16 at 16:30 CARLOTTA CAMPBELL DO Oct 26, 2016 10:24
[2016-10-26 10:25] LABS: BASOPHILS % 0.4 % (0.0-2.0); EOSINOPHILS # 0.4 10^3/ul (0.0-0.5); EOSINOPHILS % 3.5 % (0.0-7.0); HEMATOCRIT 28.1 % (37.0-47.0); HEMOGLOBIN 8.7 g/dl (12.0-16.0); LYMPHOCYTES # 2.1 10^3/ul (0.8-2.9); LYMPHOCYTES % 18.3 % (15.0-51.0); MEAN CORPUSCULAR VOLUME 83.9 fl (82.0-101.0); MEAN PLATELET VOLUME 11.5 fl (7.4-10.4); MONOCYTE # 0.8 10^3/ul (0.3-0.9); MONOCYTES % 7.4 % (0.0-11.0); PLATELET COUNT 537 10^3/UL (140-415); RED BLOOD COUNT 3.35 10^6/ul (4.20-5.40); RED CELL DISTRIBUTION WIDTH 17.6 % (11.5-14.5); WHITE BLOOD COUNT 11.3 10^3/ul (4.8-10.8)
[2016-10-26 10:34] LABS: CALCIUM 8.6 mg/dl (8.4-10.2); CREATININE 0.81 mg/dl (0.44-1.00); POTASSIUM 4.2 mmol/L (3.5-5.1)
[2016-10-26] MEDS: hydrALAzine 20 MG INJ IV PRN ×2 (11:51→21:30)
--- NOTE | 2016-10-26 13:51 | PN ---
Date/Time of Note Date/Time of Note DATE: 10/26/16 TIME: 13:49 Assessment/Plan VTE Prophylaxis VTE Prophylaxis Intervention: contraindicated VTE Contraindication Reason: bleeding Lines/Catheters IV Catheter Type (from Nrs): Saline Lock Urinary Cath still in place: Yes Reason Cath still needed: urinary retention Assessment/Plan Chief Complaint/Hosp Course Assessment and plan: 86-year-old female with a history of hypertension, independent diabetes, dyslipidemia, dementia who was brought in for altered mentation, found with intracranial hemorrhage. 1. Acute intracranial hemorrhage -initial CT had showed:Acute left globus pallidus intracranial hemorrhage with mild surrounding edema. Repeat Head CT 3 days ago = Slightly decreased left basal ganglia intracranial hemorrhage over interval since CT from 10/21/2016. -keep Systolic blood pressure goal should be less than 140, off cardene drip now , continue to monitor and continue PO bp meds, will increase Coreg PO today, add as needed IV Vasotec. -Frequent neuro checks -Follow-up neurosurgery recommendations -PT eval/tx 2. Altered mentation, secondary to above: Patient does have a history of dementia but acutely worsened secondary to above. Slowly improving. -Continue frequent neuro checks 3. Hypertension: Currently blood pressure at goal this morning less than 140 systolic -Continue antihypertensives with adjustment as needed 4. Sepsis, as evidenced by leukocytosis and tachypnea, secondary to pneumonia and likely UTI - continue IV antibiotic for now -Blood culture results, respiratory and urine culture results as well follow-up 5. Diabetes with hyperglycemia: A1c equals 7.6 -Insulin with adjustment as needed 6. History of dyslipidemia -Continue home med Problems: Subjective 24 Hr Interval Summary Free Text/Dictation Seen by renal team this morning. No acute events overnight. Exam/Review of Systems Vital Signs Vitals Vital Signs Date Time Temp Pulse Resp B/P Pulse Ox O2 Delivery O2 Flow Rate FiO2 10/26/16 12:38 67 10/26/16 11:48 98.3 17 201/82 97 10/26/16 08:00 Nasal Cannula 2.0 Intake and Output 10/25/16 10/25/16 10/26/16 15:00 23:00 07:00 Intake Total 400 ml 150 ml Output Total 200 ml 850 ml Balance 200 ml -700 ml Exam Constitutional: lying in bed Head: atraumatic, normocephalic Eyes: PERRL Respiratory: less diminished breath sounds Cardiovascular: regular rate and rhythm, systolic murmur Gastrointestinal: soft Musculoskeletal: other (Right foot pitting edema noted. She has a few scattered superficial ulceration on lower extremity) Results Result Diagram: 10/26/1692410/26/16916 Results 24 hrs Laboratory Tests Test 10/25/16 17:16 10/25/16 20:54 10/25/16 22:17 10/26/16 02:22 Bedside Glucose 202 210 183 115 Test 10/26/16 07:57 10/26/16 09:17 10/26/16 09:25 10/26/16 12:03 Bedside Glucose 72 71 Sodium Level 141 Potassium Level 4.2 Chloride Level 106 Carbon Dioxide Level 30 Anion Gap 9 Blood Urea Nitrogen 25 H Creatinine 0.81 Glucose Level 65 L Calcium Level 8.6 White Blood Count 11.3 H Red Blood Count 3.35 L Hemoglobin 8.7 L Hematocrit 28.1 L Mean Corpuscular Volume 83.9 Mean Corpuscular Hemoglobin 26.0 L Mean Corpuscular Hemoglobin Concent 31.0 L Red Cell Distribution Width 17.6 H Platelet Count 537 H Mean Platelet Volume 11.5 H Neutrophils % 70.0 Lymphocytes % 18.3 Monocytes % 7.4 Eosinophils % 3.5 Basophils % 0.4 Nucleated Red Blood Cells % 0.0 Neutrophils # (Manual) 7.9 H Lymphocytes # 2.1 Monocytes # 0.8 Eosinophils # 0.4 Basophils # 0.0 Nucleated Red Blood Cells # 0.0 Medications Medications Current Medications Ondansetron HCl (Zofran Inj) 4 mg Q6H PRN IV NAUSEA AND/OR VOMITING; Start at 03:30 Acetaminophen (Tylenol Liquid) 650 mg Q6H PRN PO PAIN LEVEL 1-3 OR FEVER; Start 10/22/16 at 03:30 Morphine Sulfate (morphine) 2 mg Q4H PRN IV PAIN LEVEL 7-10; Start 10/22/16 at 03:30 Lorazepam (Ativan) 0.5 mg Q4H PRN IV ANXIETY; Start 10/22/16 at 03:30 Fenofibrate (Tricor) 145 mg DAILY PO Last administered on 10/26/16 08:01; Admin Dose 145 MG; Start 10/22/16 at 09:00 Ferrous Sulfate 325 mg 325 mg DAILY PO Last administered on 10/26/16 08:01; Admin Dose 325 MG; Start 10/22/16 at 09:00 Levofloxacin/ Dextrose (Levaquin 250 Mg/ D5W 50 ml (Pmx)) 50 ml @ 50 mls/hr Q24H IVPB Last administered on 10/26/16 06:04; Admin Dose 50 MLS/HR; Start at 06:00 Miscellaneous Information 1 ea NOTE XX Last administered on 10/25/16 08:47; Admin Dose 1 EA; Start 10/22/16 at 03:45 Glucose (Glutose) 15 gm Q15M PRN PO DECREASED GLUCOSE; Start 10/22/16 at 03:45 Glucose (Glutose) 22.5 gm Q15M PRN PO DECREASED GLUCOSE; Start 10/22/16 at 03: 45 Dextrose (D50w Syringe) 25 ml Q15M PRN IV DECREASED GLUCOSE; Start 10/22/16 at 03:45 Dextrose (D50w Syringe) 50 ml Q15M PRN IV DECREASED GLUCOSE; Start 10/22/16 at 03:45 Glucagon (Glucagen) 1 mg Q15M PRN IM DECREASED GLUCOSE; Start 10/22/16 at 03:45 Glucose (Glutose) 15 gm Q15M PRN BUCCAL DECREASED GLUCOSE; Start 10/22/16 at 03 :45 Labetalol HCl (Labetalol) 10 mg Q2H PRN IV sbp > 150 Last administered on 09:03; Admin Dose 10 MG; Start 10/22/16 at 05:00 Famotidine (Pepcid) 20 mg DAILY PO Last administered on 10/26/16 08:01; Admin Dose 20 MG; Start 10/24/16 at 09:00 Diagnostic Test (Pha) (Accu-Chek) 1 ea 02 XX ; Start 10/25/16 at 02:00 Diagnostic Test (Pha) (Accu-Chek) 1 ea 02 XX ; Start 10/25/16 at 02:00 Insulin Glargine (Lantus) 6 unit QHS SC Last administered on 10/25/16 22:21; Admin Dose 6 UNIT; Start 10/24/16 at 21:00 Carvedilol (Coreg) 12.5 mg BID PO ; Start 10/26/16 at 21:00 Hydralazine HCl (Apresoline) 10 mg Q4H PRN IV ELEVATED BLOOD PRESSURE; Start at 14:30 Enalaprilat (Vasotec Iv) 0.625 mg Q4H PRN IV ELEVATED BLOOD PRESSURE; Start 10/26/16 at 14:00 REGAN CAMARENA Oct 26, 2016 13:51
[2016-10-26] MEDS ORDERED: ENALAPRILAT 1.25 MG INJ IV PRN (14:00)
--- NOTE | 2016-10-26 20:13 | RADRPT ---
PROCEDURE: CT Head without. CLINICAL INDICATION: Code stroke. TECHNIQUE: The study was performed utilizing a multi-slice, multidetector CT scanner. Direct spira l 1 mm axial sections were obtained through the head without the use of intravenous contrast materia l. 1 or more of the following dose reduction techniques were utilized: Automated exposure control, adjustment of the mA and/or kV according to patient's size, iterative reconstruction technique. Co crissy and sagittal reformations were obtained. The images were reviewed on a PACS workstation. RADIATION DOSE: CTDIvol: 43.7 mGyDLP: 720.2 mGy-cm COMPARISON: 10/22/2016, 10/21/2016 FINDINGS: There is stable appearance of focal parenchymal hemorrhage in the left basal ganglia, measuring 10 x 5 mm, which is unchanged compared to the most recent examination on 10/22/2016. There is a mild am ount of adjacent vasogenic edema. There is a well-circumscribed area of encephalomalacia involving the right basal ganglia related to remote lacunar infarct. There is no extra-axial fluid collection , mass lesion, midline shift or hydrocephalus. There is moderate prominence of the cerebral sulci, lateral and third ventricles. There is moderate patchy and confluent periventricular and subcortica l white matter hypodensity. There is moderate arteriosclerotic calcification of the parasellar inte rnal carotid arteries. The shin-white matter differentiation is preserved. The basal cisterns are patent. The midline structures are intact. The orbits, calvarium and extracranial soft tissues are normal in appearance. The visualized paranasal sinuses, mastoid air cells and middle ear cavities are normally aerated. IMPRESSION: 1. No significant interval change compared to 10/22/2016. Stable appearance of 10 x 5 mm left basa l ganglia intraparenchymal hemorrhage with adjacent vasogenic edema. 2. Stable moderate peripheral and central cerebral volume loss. 3. Stable moderate patchy and confluent periventricular and subcortical white matter hypodensity, l ikely related to chronic microangiopathic changes. The above findings were discussed with Patient's physician Rhett Monge by telephone on 10/26/2016 8 :03:08 PM. RPTAT: HGAS .Larry Sigmund, MD, MD Date Time Electronically viewed and signed by .Larry Healy MD, MD on 10/26/2016 20:12 .S/
[2016-10-26] MEDS: INSULIN GLARGINE [LANtus] 3 ML PEN SC SCH (23:18)
[2016-10-27] VITALS (32 sets, daily range): BP systolic 99–183; BP diastolic 31–109; PULSE 65–106; RESP 15–29
[2016-10-27] MEDS: hydrALAzine 20 MG INJ IV PRN (01:39)
[2016-10-27] MEDS: ACCU-CHEK XX SCH ×4 (02:00→02:28)
[2016-10-27 06:24] LABS: CALCIUM 8.7 mg/dl (8.4-10.2); CREATININE 0.81 mg/dl (0.44-1.00)
[2016-10-27] MEDS: LEVOFLOXACIN 250MG/D5W (PMX) 50 ML IVPB SCH (06:56)
[2016-10-27 07:14] LABS: BASOPHIL # 0.1 10^3/ul (0.0-0.1); BASOPHILS % 0.5 % (0.0-2.0); EOSINOPHILS # 0.2 10^3/ul (0.0-0.5); EOSINOPHILS % 1.8 % (0.0-7.0); HEMATOCRIT 29.4 % (37.0-47.0); HEMOGLOBIN 9.1 g/dl (12.0-16.0); LYMPHOCYTES # 2.1 10^3/ul (0.8-2.9); LYMPHOCYTES % 16.7 % (15.0-51.0); MEAN CORPUSCULAR HEMOGLOBIN 25.8 pg (29.0-33.0); MEAN CORPUSCULAR VOLUME 83.3 fl (82.0-101.0); MEAN PLATELET VOLUME 11.5 fl (7.4-10.4); MONOCYTE # 0.9 10^3/ul (0.3-0.9); MONOCYTES % 7.1 % (0.0-11.0); NEUTROPHILS % 73.3 % (39.0-77.0); PLATELET COUNT 586 10^3/UL (140-415); RED BLOOD COUNT 3.53 10^6/ul (4.20-5.40); RED CELL DISTRIBUTION WIDTH 17.8 % (11.5-14.5); WHITE BLOOD COUNT 12.4 10^3/ul (4.8-10.8)
[2016-10-27] MEDS: INSULIN ASPART [NOVOLOG] 3 ML PEN SC SCH ×4 (07:35→21:23)
--- NOTE | 2016-10-27 07:45 | PN ---
DATE: 10/27/2016 SUBJECTIVE DATA: The patient is currently stable in the intensive care unit. No other events noted overnight. No hemoptysis, hematemesis, hematochezia. OBJECTIVE DATA: VITAL SIGNS: Blood pressure 127/46, respirations 18, pulse 90, temperature 98.4. HEENT: Head is normocephalic. NECK: Supple. HEART: Regular rate. LUNGS: Diminished breath sounds at the base. ABDOMEN: Soft, nontender to palpation. No guarding. EXTREMITIES: Negative for clubbing, cyanosis. No edema. DERMATOLOGIC: Clean. No rashes. MUSCULOSKELETAL: No joint effusion. NEUROLOGIC: No change in exam. MEDICATIONS: Reviewed. LABORATORY AND DIAGNOSTIC DATA: Sodium 139, potassium 4.4, BUN 29, creatinine 0.81. White count 12.4, hemoglobin 9.1, hematocrit 29.4, platelet count is 586. ASSESSMENT AND PLAN: 1. Nonoliguric acute kidney injury with unknown baseline creatinine. Etiology secondary to hemodynamics. Renal function has improved. Continue current treatment. Supportive care. Renally dose all meds. 2. Hyponatremia, improved. Continue to monitor. 3. Hypertensive urgency. Continue current medical management. 4. Acute intracranial hemorrhage secondary to hypertension. Continue current medical management. Follow up with Neurosurgery. 5. Acute cerebrovascular accident. 6. Acute encephalopathy. Continue current treatment plan. 7. Sepsis. Continue current antibiotic regimen. 8. Diabetes. Continue Accu-Cheks and insulin sliding scale. Dictated By: Norberto Adkins DO /grace/sobeida /Document#: [id number]
[2016-10-27] MEDS: FENOFIBRATE 145 MG TAB PO SCH (10:25)
[2016-10-27] MEDS: FERROUS SULFATE (EC) 325 MG TAB PO SCH (10:25)
[2016-10-27] MEDS: FAMOTIDINE 20 MG TAB PO SCH (10:25)
--- NOTE | 2016-10-27 17:11 | PN ---
DATE: 10/27/2016 SUBJECTIVE: Patient remains in the intensive care unit. Granddaughter and daughter at bedside. I spoke with them intensively. They had a lot of questions. The main concern was the patient's continued drowsiness and lethargy. Per them right after she had the stroke, she seemed to improve in terms of mentation, until she had the rapid response after she was given some Ativan which happened on 10/22/2016. Since then has not seemed to regain good mentation. Per report, however, she is arousable and once arousable could eat a full meal, but goes right back to sleep even between conversations. OBJECTIVE DATA: VITAL SIGNS: Temperature 98.5, pulse 65, respirations 16, blood pressure 133/51, and saturation 99 percent on oxygen 3 L a minute. GENERAL: Elderly female, quite lethargic and sleepy, but arousable. When aroused follows command and can saw her name. HEENT: Head normocephalic without evidence of trauma. Pupils equal, round, reactive. Mucous membranes are slightly dry. NECK: Neck is supple. CHEST: Chest is with diminished breath sounds bilaterally with no wheezes, no crackles. CARDIOVASCULAR: S1 and S2. No added sounds or murmurs. ABDOMEN: Soft, nontender, nondistended with normoactive bowel sounds EXTREMITIES: All 4 extremities have mild edema. SKIN: Positive for ecchymosis diffusely. PSYCH: Could not be assessed due to mentation. CURRENT MEDICATIONS: Current medications have been reviewed in detail . LABORATORY DATA: The last cultures from the , MRSA was negative and a urine culture grew out lactobacillus. She did have a white count of 12,000 with a hemoglobin of 9.1, and platelet count of 586, with hypochromic microcytic indices. An anticoag profile from the was unremarkable. Chemistry, basic metabolic profile from today was also fairly unremarkable. IMAGING: She had a CT scan done 10/26/2016 that showed no significant interval change. Stable appearance of 10 x 5 mm left basal ganglia intraparenchymal hemorrhage with adjacent vasogenic edema with a chronic mild microangiopathic changes and stable peripheral and central volume loss. Last chest x-ray she had was 10/21/2016 that showed a right lung base pneumonia. ASSESSMENT: An 86-year-old female, who had originally presented 10/22/2016 with altered mentation and now managed for the followin. Acute intracranial hemorrhage. These has been deemed nonsurgical by Neurosurgery. Stable CT appearance since admission. 2. Altered mental status thought to be secondary to number 1, but superimposed on a history of chronic dementia, but now concerns for lack of improvement. 3. Hypertension with good control. 4. Sepsis secondary to right lower lobe pneumonia, on antibiotics. 5. Diabetes mellitus with good control. 6. History of dyslipidemia. 7. Hyponatremia, improving. 8. Nonoliguric acute kidney injury thought to be secondary to hemodynamic that has almost completely resolved at this time. 9. Lactobacillus urinary tract infection (UTI) contributing to sepsis. PLAN: Due to concern about patient's mentation and the concern that it was an acute decline we will rule out infectious causes by repeating cultures. Also we will get an MRI of the brain to rule out an ischemic CVA, as well as the EEG to rule out subclinical seizures. The patient will also benefit from a Neurology consultation and close monitoring. She has been seen by speech therapy, and cleared for pureed diet. I will continue her on that at this time with strict aspiration precautions. Continue fluid hydration. On current treatment regimen. Further interventions will depend on her findings. I spoke with family in detail. I explained to them that have recovered course may be long and complicated, especially in view of her age and overall prognosis is guarded. They seem to understand and they want the patient made DNR at this time with elective treatment only without intubation or long-term feeding tubes. The patient's family has been given code form and we will be filling this out as I make the patient DNR in the chart. Overall critical care time has been more than 45 minutes. For further clarifications please review the patient's chart. Dictated By: Brandon Arreola MD /grace/cong /Document#: [id number]
[2016-10-27] MEDS: INSULIN GLARGINE [LANtus] 3 ML PEN SC SCH (21:23)
[2016-10-28] VITALS (19 sets, daily range): BP systolic 110–141; BP diastolic 34–86; PULSE 56–73; RESP 11–22
[2016-10-28 01:50] LABS: ADD UMIC YES; UR ASCORBIC ACID NEGATIVE (NEGATIVE); UR BACTERIA FEW /HPF (NONE SEEN); UR BILIRUBIN (Dip) NEGATIVE (NEGATIVE); UR BLOOD (Dip) 3+ mg/dL (NEGATIVE); UR BUDDING YEAST MANY /HPF (NONE SEEN); UR CLARITY TURBID (CLEAR); UR COLOR YELLOW (YELLOW); UR GLUCOSE (Dip) NEGATIVE (NEGATIVE); UR KETONES (Dip) NEGATIVE (NEGATIVE); UR LEUKOCYTE ESTERASE (Dip) 3+ Leu/ul (NEGATIVE); UR MUCUS FEW /HPF (NONE SEEN); UR NITRITE (Dip) NEGATIVE (NEGATIVE); UR RBC > 182 /HPF (0-5); UR SPECIFIC GRAVITY (Dip) 1.014 (1.003-1.030); UR TOTAL PROTEIN (Dip) 1+ mg/dl (NEGATIVE); UR UROBILINOGEN (Dip) NEGATIVE (NEGATIVE); UR WBC CLUMPS FEW /HPF (NONE SEEN)
[2016-10-28] MEDS: ACCU-CHEK XX SCH ×2 (02:00)
[2016-10-28] MEDS: LEVOFLOXACIN 250MG/D5W (PMX) 50 ML IVPB SCH (06:09)
[2016-10-28] MEDS: INSULIN ASPART [NOVOLOG] 3 ML PEN SC SCH ×4 (07:35→21:00)
[2016-10-28] MEDS: FAMOTIDINE 20 MG TAB PO SCH (09:07)
[2016-10-28] MEDS: FERROUS SULFATE (EC) 325 MG TAB PO SCH (09:07)
[2016-10-28] MEDS: FENOFIBRATE 145 MG TAB PO SCH (09:07)
--- NOTE | 2016-10-28 10:20 | PN ---
DATE: 10/28/2016 SUBJECTIVE DATA: The patient is stable. No events overnight. No fevers, chills, nausea, vomiting. No shortness of breath. OBJECTIVE DATA: VITAL SIGNS: Blood pressure 137/37, respirations 16, pulse 56, temperature 98.6. HEENT: Head is normocephalic. NECK: Supple. HEART: Regular rate. LUNGS: Show diminished breath sounds at the base. ABDOMEN: Soft, nontender to palpation. No rebound or guarding. EXTREMITIES: Negative for clubbing, cyanosis. No edema. DERMATOLOGIC: No rashes. MUSCULOSKELETAL: No joint effusion. NEUROLOGIC: Unchanged exam. MEDICATIONS: Reviewed. LABORATORY AND DIAGNOSTIC DATA: Reviewed. No new labs. ASSESSMENT AND PLAN: 1. Nonoliguric acute kidney injury with unknown baseline creatinine. Etiology secondary to hemodynamics. Renal function has improved. Continue current treatment plan, supportive care. Renally dose all meds. 2. Hyponatremia, improved. 3. Hypertensive urgency. Continue current medical management. 4. Acute intracranial hemorrhage secondary to hypertension. Continue current treatment plan. Follow up with Neurosurgery. 5. Acute cerebrovascular accident. 6. Acute encephalopathy. Continue to monitor. 7. Sepsis. The patient is completing antibiotic course. 8. Diabetes. Continue Accu-Cheks and insulin sliding scale. Dictated By: Norberto Adkins DO /grace/haresh /Document#: [id number]
--- NOTE | 2016-10-28 12:11 | RADRPT ---
PROCEDURE: MR Brain without contrast. CLINICAL INDICATION: Altered mental status TECHNIQUE: An MRI of the brain was performed on a 1.5 rafiq scanner utilizing the following sequen gregoria: Sagittal T1 weighted, axial T2 weighted, axial FLAIR, coronal GRE, and axial diffusion weighted with ADC mapping. COMPARISON: CT brain code stroke 10/26/2016 FINDINGS: No evidence of restricted diffusion to suggest acute or early subacute ischemic infarction. There i s redemonstration of ovoid 10 x 5 mm left thalamic a focus of subacute parenchymal hemorrhage with T 1 shortening and signal loss on all other pulse sequences. No significant interval change in minimal surrounding vasogenic edema. Gradient-echo susceptibility weighted imaging demonstrates multiple foci of signal loss in the thala mi bilaterally , posterior left basal ganglia , central darlene left brachium pontis, and medial left c erebellar hemisphere. Four additional foci of signal loss are noted in the right thalamus and 3 ciro tional foci in the left thalamus and basal ganglia. The largest on the right measures approximately 5 mm greatest dimension and the largest on the left in the posterior basal ganglia measures 12 mm in greatest dimension. These findings are most compatible with the sequelae of prior micro hemorrhages with hemosiderin deposition/blood degradation products. On T2-weighted sequences, these appear to r epresent remote lacunar infarcts. These are not visualized on these CT of 10/26/2016. Moderate patchy T2 / FLAIR signal hyperintensity foci throughout the periventricular and subcortical white matter bilaterally most compatible with sequelae of chronic microvascular ischemic injury of hypertension. The ventricles and subarachnoid spaces are markedly prominent compatible with central cerebral and cerebellar volume loss. 3 cm left maxillary sinus mucous retention cyst or polyp. The remaining posterior fossa contents, brainstem, seventh - eighth cranial nerve complexes, pituita ry axis, orbits, paranasal sinuses, and mastoid air cells are unremarkable. Normal flow voids are visible in the proximal intracranial arteries and dural sinuses, indicating pa tency. IMPRESSION: 1. Stable appearance of subacute 10 x 5 mm left basal ganglia/thalamus intraparenchymal hemorrhage w ith trace surrounding vasogenic edema. 2. No acute or early subacute ischemic infarction or new intracranial hemorrhage. 3. Mild to moderate microvascular ischemic changes of the deep white matter. Marked central cerebral and cerebellar volume loss. 4. Multiple foci of signal loss on gradient echo imaging in the thalami bilaterally, left basal gang alean, darlene, left cerebral hemisphere and brachium pontis most compatible with sequelae of remote lacu chasity infarcts and micro hemorrhages/hemosiderin deposition or blood degradation products. These findi ngs are likely related to chronic microvascular ischemic changes of hypertension . RPTAT:AAJJ Daquan Kang Physician Date Time Electronically viewed and signed by Daquan Kang Physician on 10/28/2016 12:10 ANNA/
[2016-10-28] MEDS: PIPER-TAZO 2.25 GM (PMX) 50 ML IVPB SCH ×2 (13:25→22:40)
[2016-10-28] MEDS: FLUCONAZOLE 200 MG/NS (PMX) 100 ML IVPB SCH (14:04)
[2016-10-28] MEDS: INSULIN GLARGINE [LANtus] 3 ML PEN SC SCH (21:28)
--- NOTE | 2016-10-28 22:58 | PN ---
Date/Time of Note Date/Time of Note DATE: 10/28/16 TIME: 22:55 Assessment/Plan VTE Prophylaxis VTE Prophylaxis Intervention: SCD's VTE Contraindication Reason: hemorrhagic cerebral infarction Lines/Catheters IV Catheter Type (from Nrs): Peripheral IV Urinary Cath still in place: Yes Reason Cath still needed: other (indicate) Assessment/Plan Assessment/Plan 1. Acute intracranial hemorrhage. These has been deemed nonsurgical by Neurosurgery. Stable CT appearance since admission. 2. Altered mental status likely 2/2 sepsis superimposed on #1 3. Hypertension with good control. 4. Sepsis secondary to right lower lobe pneumonia, on antibiotics. 5. Diabetes mellitus with good control. 6. History of dyslipidemia. 7. Hyponatremia, improving. 8. Nonoliguric acute kidney injury thought to be secondary to hemodynamic that has almost completely resolved at this time. 9. Urinary tract infection (UTI) contributing to sepsis. PLAN: UTI likely contributing to altered mentation Broaden abx coverage and add antifungal F/U EEG and MRI findings/ Neurology recs Continue ICU care while so lethargic Continue supportive care Family working with case mgt to set up home hospice at d/c CC time > 35mins Subjective 24 Hr Interval Summary Free Text/Dictation very drowsy, lethargic Exam/Review of Systems Vital Signs Vitals Vital Signs Date Time Temp Pulse Resp B/P Pulse Ox O2 Delivery O2 Flow Rate FiO2 10/28/16 20:10 3.0 10/28/16 18:00 59 15 121/43 99 Nasal Cannula 10/28/16 16:00 97.0 Intake and Output 10/27/16 10/27/16 10/28/16 15:00 23:00 07:00 Intake Total 200 ml 240 ml Output Total 395 ml 325 ml 250 ml Balance -195 ml -85 ml -250 ml Exam Constitutional: other (sleeping, arousable with aggressive stimulation), No alert Head: normocephalic Neck: supple Respiratory: diminished breath sounds Cardiovascular: regular rate and rhythm, No murmurs/extra sounds Gastrointestinal: bowel sounds, non-tender, soft Extremities: No edema Neurological: lethargic Results Result Diagram: 10/27/16 0645 10/27/16 0452 Results 24 hrs Laboratory Tests Test 10/28/16 02:19 10/28/16 09:01 10/28/16 12:05 10/28/16 18:14 Bedside Glucose 122 129 138 90 Test 10/28/16 20:58 Bedside Glucose 120 Medications Medications Current Medications Ondansetron HCl (Zofran Inj) 4 mg Q6H PRN IV NAUSEA AND/OR VOMITING; Start at 03:30 Acetaminophen (Tylenol Liquid) 650 mg Q6H PRN PO PAIN LEVEL 1-3 OR FEVER; Start 10/22/16 at 03:30 Morphine Sulfate (morphine) 2 mg Q4H PRN IV PAIN LEVEL 7-10; Start 10/22/16 at 03:30 Lorazepam (Ativan) 0.5 mg Q4H PRN IV ANXIETY Last administered on 10/28/16 10: 30; Admin Dose 0.5 MG; Start 10/22/16 at 03:30 Fenofibrate (Tricor) 145 mg DAILY PO Last administered on 10/28/16 09:07; Admin Dose 145 MG; Start 10/22/16 at 09:00 Ferrous Sulfate (Ferrous Sulfate (Ec)) 325 mg DAILY PO Last administered on 10/28 09:07; Admin Dose 325 MG; Start 10/22/16 at 09:00 Miscellaneous Information 1 ea NOTE XX Last administered on 10/25/16 08:47; Admin Dose 1 EA; Start 10/22/16 at 03:45 Glucose (Glutose) 15 gm Q15M PRN PO DECREASED GLUCOSE; Start 10/22/16 at 03:45 Glucose (Glutose) 22.5 gm Q15M PRN PO DECREASED GLUCOSE; Start 10/22/16 at 03: 45 Dextrose (D50w Syringe) 25 ml Q15M PRN IV DECREASED GLUCOSE; Start 10/22/16 at 03:45 Dextrose (D50w Syringe) 50 ml Q15M PRN IV DECREASED GLUCOSE; Start 10/22/16 at 03:45 Glucagon (Glucagen) 1 mg Q15M PRN IM DECREASED GLUCOSE; Start 10/22/16 at 03:45 Glucose (Glutose) 15 gm Q15M PRN BUCCAL DECREASED GLUCOSE; Start 10/22/16 at 03 :45 Famotidine (Pepcid) 20 mg DAILY PO Last administered on 10/28/16 09:07; Admin Dose 20 MG; Start 10/24/16 at 09:00 Diagnostic Test (Pha) (Accu-Chek) 1 ea 02 XX Last administered on 10/27/16 02: 00; Admin Dose 1 EA; Start 10/25/16 at 02:00 Diagnostic Test (Pha) (Accu-Chek) 1 ea XX Last administered on 10/27/16 02: 00; Admin Dose 1 EA; Start 10/25/16 at 02:00 Insulin Glargine (Lantus) 6 unit QHS SC Last administered on 10/28/16 21:28; Admin Dose 6 UNIT; Start 10/24/16 at 21:00 Carvedilol 12.5 mg 12.5 mg BID PO Last administered on 10/28/16 21:34; Admin Dose 12.5 MG; Start 10/26/16 at 21:00 Piperacillin Sod/ Tazobactam Sod 50 ml @ 100 mls/hr Q8 IVPB Last administered on 10/28/16 22:40; Admin Dose 100 MLS/HR; Start 10/28/16 at 14:00 Fluconazole (Diflucan 200 Mg/ NS (Pmx)) 100 ml @ 100 mls/hr Q24H IVPB Last administered on 10/28/16 14:04; Admin Dose 100 MLS/HR; Start 10/28/16 at 14:00 ELLY YIN Oct 28, 2016 22:58
--- NOTE | 2016-10-28 23:07 | CONS ---
DATE OF ADMISSION: 10/22/2016 DATE OF CONSULTATION: 10/28/2016 Thank you, for your kind referral for evaluation of encephalopathy and intracerebral hemorrhage. HISTORY OF PRESENT ILLNESS: Patient is an 86-year-old lady who was admitted on 10/21/2016 with several days - 1 week of some right-sided weakness and unintelligible speech. According to the Neurosurgical note from 10/22/2016, she was found to have small left basal ganglia intracerebral hemorrhage. There was some further deterioration on the day prior to admission, likely secondary to pneumonia, according to Neurosurgery note, as was seen on chest x-ray. Patient still continues to be drowsy and lethargic, was somewhat better after the stroke and then worsened again. MRI of the brain was done today, and it shows stable subacute 1 x 0.5 cm left basal ganglia/thalamic intraparenchymal hemorrhage, with trace surrounding edema. No acute ischemic abnormality, white matter disease, atrophy, multiple old lacunes and some possible areas of small chronic microhemorrhages. LABORATORY: Shows a WBC count 12.4, hemoglobin 9.1, hematocrit 29.4, platelets 586 today. Few days ago, WBC count was lower, so it was trending up. Yesterday's BUN 29, creatinine 0.81. Rest of basic metabolic panel within normal limits. Liver function tests few days ago: Total protein 5.3, albumin 2.5. Rest within normal limits. Cholesterol 119, LDL 56. Normal PT, PTT 22. Urinalysis from yesterday shows leukocyte esterase 3+, WBC count more than 182, many bacteria, yeast, and some mucus. CURRENT MEDICATIONS: 1. Zosyn. 2. Fluconazole. 3. Coreg. 4. Pepcid. 5. NovoLog. 6. TriCor. 7. Iron. ALLERGIES: NONE. SOCIAL HISTORY: No alcohol, tobacco, or drug use. FAMILY HISTORY: Not contributory. PHYSICAL EXAMINATION: VITAL SIGNS: Today, 97.0 temperature, pulse 59, respirations 15, 121/43 blood pressure. GENERAL APPEARANCE: Not in acute distress, lying in bed. HEENT: Normocephalic, atraumatic head. No carotid bruits. LYMPH NODES: No thyromegaly. LUNGS: Clear to auscultation bilaterally. HEART: Normal cardiac sounds. ABDOMEN: Soft, nontender. EXTREMITIES: No cyanosis, clubbing, or edema. NEUROLOGIC: She is lethargic, briefly arousable by noxious stimuli, goes back to sleep. Did not follow my commands consistently. Answers, "I am okay," to my question; however, did not answer any other questions and was not conversing. Present response to visual threat bilaterally. Pupils small, about 2 mm, not reactive. Extraocular movements intact, without nystagmus. Symmetrical face. Corneal reflexes present bilaterally, as well as gait. Motor strength examination shows symmetrical movements, about 3/5 bilaterally. No definite pronator drift. Again, patient was sleepy and not fully cooperative with the examination, but she withdraws and moves upper extremities. Slightly less brisk lower extremities, but she does withdraw them as well. Deep tendon reflexes 2+, upper extremities and knees. Absent ankle jerks. Equivocal response to plantar stimulation bilaterally. Coordination examination was limited. She was not cooperative, but when she is reaching for objects, no major dysmetria or tremor was observed. IMPRESSION: 1. Encephalopathy. It is likely toxic metabolic in etiology, given dehydration and urinary tract infection. 2. Subacute, small, stable on multiple imaging studies, left basal ganglia/thalamic intracerebral hemorrhage. PLAN: Keep patient euglycemic, normotensive. Continue current treatment for infection. No other suggestion for patient management. Thank you very much for this interesting consultation. EEG was requested by primary MD. I will review when done. Dictated By: Mickey Vazquez MD /grace/marsha /Document#: [id number] [place]
[2016-10-29 02:00] VITALS: BP 132/64; RESP 19
[2016-10-29] MEDS: ACCU-CHEK XX SCH ×2 (02:00)
[2016-10-29] MEDS: PIPER-TAZO 2.25 GM (PMX) 50 ML IVPB SCH ×3 (05:55→21:14)
[2016-10-29 07:29] VITALS: BP 147/68; RESP 18
[2016-10-29] MEDS: INSULIN ASPART [NOVOLOG] 3 ML PEN SC SCH ×4 (08:00→21:17)
[2016-10-29] MEDS: FERROUS SULFATE (EC) 325 MG TAB PO SCH (08:02)
[2016-10-29] MEDS: FAMOTIDINE 20 MG TAB PO SCH (08:02)
[2016-10-29] MEDS: FENOFIBRATE 145 MG TAB PO SCH (08:03)
[2016-10-29] MEDS: GLUCOSE GEL 15 GRAM TUBE BUCCAL PRN ×2 (08:05→08:17)
[2016-10-29 13:15] VITALS: BP 137/63; RESP 18
--- NOTE | 2016-10-29 14:43 | PRO ---
DATE OF PROCEDURE: 10/28/2016 PROCEDURE PERFORMED: EEG. INDICATION: An 86-year-old lady with small left basal ganglia intracerebral hemorrhage, as well as encephalopathy. Other ongoing problems include UTI and dehydration. DESCRIPTION OF PROCEDURE: Routine EEG was recorded digitally. Scalp to scalp and scalp to ear montages were recorded and reviewed. All impedances were measured and recorded. Cap CP electrodes were placed in accordance to International 10-20 system of electrode placement. Symmetrically distributed background activity ranging in frequency between 4-6 cycles per second was seen in most of the recording. At times a little faster up to 8 cycles per seconds. No response to photic stimulation. No definite epileptiform transients are seen. No signs of ongoing electrographic seizures. IMPRESSION: Abnormal study secondary to background slowing which could reflect presence of encephalopathy, likely toxic metabolic etiology. Please correlate clinically. Dictated By: Mickey Vazquez MD /grace/cong /Document#: [id number]
[2016-10-29] MEDS: FLUCONAZOLE 200 MG/NS (PMX) 100 ML IVPB SCH (15:30)
[2016-10-29] MEDS ORDERED: MAGNESIUM HYDROXIDE 30ML CUP PO PRN (17:30)
[2016-10-29 20:48] VITALS: BP 134/60; RESP 18
[2016-10-29] MEDS: SENNA/DOCUSATE NA (8.6MG/50MG) TAB PO SCH (21:14)
[2016-10-29] MEDS: INSULIN GLARGINE [LANtus] 3 ML PEN SC SCH (21:15)
--- NOTE | 2016-10-29 22:52 | PN ---
DATE: 10/29/2016 SUBJECTIVE DATA: The patient remains drowsy and slightly sleepy today. Still very lethargic. Her vital signs temperature 97.6, pulse 66, respirations 18, blood pressure 137/63, saturations 99 percent on oxygen by nasal cannula 3 L. OBJECTIVE DATA: On general examination, she is arousable, but with significant stimulation. HEENT: Head normocephalic. Pupils equal, round, reactive. CHEST: Chest is with diminished breath sounds bilaterally. HEART: S1, S2. No murmurs. ABDOMEN: Abdomen is soft, nontender. EXTREMITIES: Lower extremities negative for edema. LAB VALUES: Lab work for today is pending. ASSESSMENT AND PLAN: 1. Acute intracranial hemorrhage that is nonsurgical with stable CT appearance. 2. Altered mental status thought to be secondary to sepsis on antibiotics secondary to urinary tract infection. 3. Right lower abdomen wound. 4. Hypertension. 5. Diabetes mellitus. 6. Dyslipidemia. 7. Hyponatremia. Plan: The patient remains altered. EEG showing toxic metabolic encephalopathy. No evidence of seizure. MRI showed stable appearance of hemorrhage with chronic infarcts and multiple foci of signal loss. At this time patient's encephalopathy is likely multifactorial and will likely take time to improve if it will at all. However, prognosis is quite guarded. The patient's family is not at the bedside at this time to discuss with them, will have to update them and make some decisions. It is my understanding that hospice is being worked on. I agree with this plan. PLAN: Patient is to be discharged home with hospice once it has been set up. In the interim, we will notify family of MRI finding and further interventions will depend on their decisions. In the meantime we will obtain an ABG as well as the lab work and see what those show. Dictated By: Brandon Arreola MD /grace/susi /Document#: [id number]
[2016-10-30] MEDS: ACCU-CHEK XX SCH ×2 (01:33)
[2016-10-30 02:00] VITALS: BP 112/74; RESP 18
[2016-10-30] MEDS: PIPER-TAZO 2.25 GM (PMX) 50 ML IVPB SCH ×3 (05:04→20:08)
[2016-10-30 05:54] LABS: BASOPHILS % 0.4 % (0.0-2.0); EOSINOPHILS # 0.3 10^3/ul (0.0-0.5); HEMATOCRIT 26.3 % (37.0-47.0); LYMPHOCYTES # 2.3 10^3/ul (0.8-2.9); LYMPHOCYTES % 21.7 % (15.0-51.0); MEAN CORPUSCULAR HEMOGLOBIN 25.9 pg (29.0-33.0); MEAN CORPUSCULAR HGB CONC 30.4 g/dl (32.0-37.0); MEAN CORPUSCULAR VOLUME 85.1 fl (82.0-101.0); MEAN PLATELET VOLUME 12.4 fl (7.4-10.4); MONOCYTES % 9.9 % (0.0-11.0); NEUTROPHILS % 64.4 % (39.0-77.0); PLATELET COUNT 445 10^3/UL (140-415); RED BLOOD COUNT 3.09 10^6/ul (4.20-5.40); RED CELL DISTRIBUTION WIDTH 18.1 % (11.5-14.5); WHITE BLOOD COUNT 10.4 10^3/ul (4.8-10.8)
[2016-10-30 06:24] LABS: ALBUMIN 2.4 g/dl (3.3-4.9); ALBUMIN/GLOBULIN RATIO 0.85; CALCIUM 8.2 mg/dl (8.4-10.2); CREATININE 0.8 mg/dl (0.44-1.00); MAGNESIUM 2.1 mg/dl (1.7-2.5); POTASSIUM 4.3 mmol/L (3.5-5.1); TOTAL PROTEIN 5.2 g/dl (6.1-8.1)
[2016-10-30 07:34] LABS: THYROID STIMULATING HORMONE 4.66 MIU/L (0.465-4.680)
[2016-10-30] MEDS: INSULIN ASPART [NOVOLOG] 3 ML PEN SC SCH ×4 (08:00→20:16)
[2016-10-30] MEDS: GLUCOSE GEL 15 GRAM TUBE BUCCAL PRN ×4 (08:03→18:13)
[2016-10-30] MEDS: FERROUS SULFATE (EC) 325 MG TAB PO SCH (08:04)
[2016-10-30] MEDS: FENOFIBRATE 145 MG TAB PO SCH (08:04)
[2016-10-30] MEDS: FAMOTIDINE 20 MG TAB PO SCH (08:04)
[2016-10-30] MEDS: SENNA/DOCUSATE NA (8.6MG/50MG) TAB PO SCH ×2 (08:04→20:07)
[2016-10-30] MEDS: FUROSEMIDE 20 MG INJ IV SCH (08:12)
[2016-10-30 08:13] VITALS: BP 174/72; RESP 18
--- NOTE | 2016-10-30 09:01 | RADRPT ---
PROCEDURE: XR Chest. CLINICAL INDICATION: Pneumonia. TECHNIQUE: Single AP portable chest. COMPARISON: 10/21/2016 Chest x-ray FINDINGS: The cardiac silhouette is enlarged with increased vascular congestion and multifocal air space opaci ties compared to prior study suggestive of CHF with superimposed multifocal pneumonia. The opacity i n the right upper lobe is new compared to previous study. Atherosclerotic calcification of the aort a. No pneumothorax. The osseous structures and soft tissues are unremarkable. IMPRESSION: 1. Increasing vascular congestion, bilateral pleural effusions and multifocal air space opacities king ggestive of CHF with multifocal pneumonia. RPTAT:AAJJ Daquan Kang Physician Date Time Electronically viewed and signed by Daquan Kang Physician on 10/30/2016 09:00 ANNA/
[2016-10-30 09:02] VITALS: BP 140/63; PULSE 76
[2016-10-30] MEDS: FLUCONAZOLE 200 MG/NS (PMX) 100 ML IVPB SCH (14:15)
[2016-10-30 15:18] VITALS: BP 92/68; RESP 18
[2016-10-30 15:30] VITALS: BP 114/61; PULSE 73
[2016-10-30 19:30] VITALS: BP 122/55; RESP 20
--- NOTE | 2016-10-31 00:21 | PN ---
Date/Time of Note Date/Time of Note DATE: 10/30/16 TIME: 13:18 Assessment/Plan VTE Prophylaxis VTE Prophylaxis Intervention: SCD's Lines/Catheters IV [facility] Type (from [facility] Saline Lock Urinary Cath still in place: Yes Reason Cath still needed: terminal illness/intractable pain Assessment/Plan Assessment/Plan 1. Acute intracranial hemorrhage that is nonsurgical with stable CT appearance. 2. Altered mental status thought to be secondary to sepsis on antibiotics secondary to urinary tract infection. 3. Right lower abdomen wound. 4. Hypertension. 5. Diabetes mellitus. 6. Dyslipidemia. 7. Hyponatremia. Plan: -The patient remains altered. EEG showing toxic metabolic encephalopathy. No evidence of seizure. MRI showed stable appearance of hemorrhage with chronic infarcts and multiple foci of signal loss. At this time patient's encephalopathy is likely multifactorial and will likely take time to improve if it will at all. However, prognosis is quite guarded. - per previous note, plan is to discharge pt home with hospice once it has been set up. No family at bedside when i exam pt this afternoon. Subjective 24 Hr Interval Summary Free Text/Dictation lethargic. not following commands Exam/Review of Systems Vital Signs Vitals Vital Signs Date Time Temp Pulse Resp B/P Pulse Ox O2 Delivery O2 Flow Rate FiO2 10/30/16 21:00 Nasal Cannula 3.0 10/30/16 19:30 97.4 68 20 122/55 98 Intake and Output 10/30/16 10/30/16 10/31/16 15:00 23:00 07:00 Intake Total 50 ml 700 ml Output Total 700 ml Balance 50 ml 0 ml Exam Constitutional: other (not following commands. appears lethargic) Head: normocephalic Eyes: PERRL Respiratory: diminished breath sounds Cardiovascular: nl pulses, regular rate and rhythm Gastrointestinal: soft Extremities: normal pulses Results Result Diagram: 10/30/16 0434 10/30/16 0434 Results 24 hrs Laboratory Tests Test 10/30/16 01:32 10/30/16 04:34 10/30/16 08:00 10/30/16 08:18 Bedside Glucose 106 64 L 64 L White Blood Count 10.4 Red Blood Count 3.09 L Hemoglobin 8.0 L Hematocrit 26.3 L Mean Corpuscular Volume 85.1 Mean Corpuscular Hemoglobin 25.9 L Mean Corpuscular Hemoglobin Concent 30.4 L Red Cell Distribution Width 18.1 H Platelet Count 445 #H Mean Platelet Volume 12.4 H Neutrophils % 64.4 Lymphocytes % 21.7 Monocytes % 9.9 Eosinophils % 3.0 Basophils % 0.4 Nucleated Red Blood Cells % 0.0 Neutrophils # (Manual) 6.7 Lymphocytes # 2.3 Monocytes # 1.0 H Eosinophils # 0.3 Basophils # 0.0 Nucleated Red Blood Cells # 0.0 Sodium Level 141 Potassium Level 4.3 Chloride Level 105 Carbon Dioxide Level 33 H Anion Gap 7 L Blood Urea Nitrogen 32 H Creatinine 0.80 Glucose Level 66 L Calcium Level 8.2 L Magnesium Level 2.1 Total Bilirubin 0.0 L Direct Bilirubin 0.00 Indirect Bilirubin 0.0 Aspartate Amino Transf (AST/SGOT) 20 Alanine Aminotransferase (ALT/SGPT) 26 Alkaline Phosphatase 52 Total Protein 5.2 L Albumin 2.4 L Globulin 2.80 Albumin/Globulin Ratio 0.85 Thyroid Stimulating Hormone (TSH) 4.660 Test 10/30/16 08:40 10/30/16 09:02 10/30/16 12:07 10/30/16 17:31 Bedside Glucose 126 164 191 56 L Test 10/30/16 17:49 10/30/16 18:08 10/30/16 18:29 10/30/16 18:45 Bedside Glucose 100 79 201 135 Medications Medications Current Medications Ondansetron HCl (Zofran Inj) 4 mg Q6H PRN IV NAUSEA AND/OR VOMITING; Start at 03:30 Acetaminophen (Tylenol Liquid) 650 mg Q6H PRN PO PAIN LEVEL 1-3 OR FEVER; Start 10/22/16 at 03:30 Morphine Sulfate (morphine) 2 mg Q4H PRN IV PAIN LEVEL 7-10; Start 10/22/16 at 03:30 Lorazepam (Ativan) 0.5 mg Q4H PRN IV ANXIETY Last administered on 10/28/16 10: 30; Admin Dose 0.5 MG; Start 10/22/16 at 03:30 Fenofibrate (Tricor) 145 mg DAILY PO Last administered on 10/30/16 08:04; Admin Dose 145 MG; Start 10/22/16 at 09:00 Ferrous Sulfate (Ferrous Sulfate (Ec)) 325 mg DAILY PO Last administered on 10/30 08:04; Admin Dose 325 MG; Start 10/22/16 at 09:00 Miscellaneous Information 1 ea NOTE XX Last administered on 10/25/16 08:47; Admin Dose 1 EA; Start 10/22/16 at 03:45 Glucose (Glutose) 15 gm Q15M PRN PO DECREASED GLUCOSE; Start 10/22/16 at 03:45 Glucose (Glutose) 22.5 gm Q15M PRN PO DECREASED GLUCOSE; Start 10/22/16 at 03: 45 Dextrose (D50w Syringe) 25 ml Q15M PRN IV DECREASED GLUCOSE Last administered on 10/29/16 08:40; Admin Dose 25 ML; Start 10/22/16 at 03:45 Dextrose (D50w Syringe) 50 ml Q15M PRN IV DECREASED GLUCOSE; Start 10/22/16 at 03:45 Glucagon (Glucagen) 1 mg Q15M PRN IM DECREASED GLUCOSE; Start 10/22/16 at 03:45 Glucose (Glutose) 15 gm Q15M PRN BUCCAL DECREASED GLUCOSE Last administered on 10/30/16 18:13; Admin Dose 15 GM; Start 10/22/16 at 03:45 Famotidine (Pepcid) 20 mg DAILY PO Last administered on 10/30/16 08:04; Admin Dose 20 MG; Start 10/24/16 at 09:00 Diagnostic Test (Pha) (Accu-Chek) 1 ea 02 XX Last administered on 10/30/16 01: 33; Admin Dose 1 EA; Start 10/25/16 at 02:00 Diagnostic Test (Pha) (Accu-Chek) 1 ea 02 XX Last administered on 10/30/16 01: 33; Admin Dose 1 EA; Start 10/25/16 at 02:00 Carvedilol 12.5 mg 12.5 mg BID PO Last administered on 10/30/16 20:08; Admin Dose 12.5 MG; Start 10/26/16 at 21:00 Piperacillin Sod/ Tazobactam Sod 50 ml @ 100 mls/hr Q8 IVPB Last administered on 10/30/16 20:08; Admin Dose 100 MLS/HR; Start 10/28/16 at 14:00 Fluconazole (Diflucan 200 Mg/ NS (Pmx)) 100 ml @ 100 mls/hr Q24H IVPB Last administered on 10/30/16 14:15; Admin Dose 100 MLS/HR; Start 10/28/16 at 14:00 Magnesium Hydroxide (Milk Of Mag) 30 ml DAILY PRN PO constipation Last administered on 10/29/16 17:41; Admin Dose 30 ML; Start 10/29/16 at 17:30 Senna/Docusate Sodium (Senokot-S) 1 tab BID PO Last administered on 10/30/16 20 :07; Admin Dose 1 TAB; Start 10/29/16 at 21:00 Furosemide (Lasix) 20 mg DAILY IV Last administered on 10/30/16 08:12; Admin Dose 20 MG; Start 10/30/16 at 09:00; Stop 11/02/16 at 08:59 JELANI HEBERT MD Oct 31, 2016 00:21
[2016-10-31] MEDS: ACCU-CHEK XX SCH ×2 (01:29)
[2016-10-31 02:07] VITALS: BP 136/61; RESP 18
[2016-10-31] MEDS: PIPER-TAZO 2.25 GM (PMX) 50 ML IVPB SCH ×3 (04:14→22:37)
[2016-10-31 06:42] LABS: BASOPHILS % 0.4 % (0.0-2.0); EOSINOPHILS # 0.4 10^3/ul (0.0-0.5); EOSINOPHILS % 3.4 % (0.0-7.0); HEMATOCRIT 25.1 % (37.0-47.0); HEMOGLOBIN 7.6 g/dl (12.0-16.0); LYMPHOCYTES # 2.6 10^3/ul (0.8-2.9); LYMPHOCYTES % 24.5 % (15.0-51.0); MEAN CORPUSCULAR HEMOGLOBIN 25.9 pg (29.0-33.0); MEAN CORPUSCULAR HGB CONC 30.3 g/dl (32.0-37.0); MEAN CORPUSCULAR VOLUME 85.7 fl (82.0-101.0); MONOCYTE # 0.9 10^3/ul (0.3-0.9); MONOCYTES % 8.3 % (0.0-11.0); NEUTROPHILS % 62.6 % (39.0-77.0); PLATELET COUNT 488 10^3/UL (140-415); RED BLOOD COUNT 2.93 10^6/ul (4.20-5.40); RED CELL DISTRIBUTION WIDTH 18.2 % (11.5-14.5); WHITE BLOOD COUNT 10.7 10^3/ul (4.8-10.8)
[2016-10-31 07:07] LABS: ALBUMIN 2.4 g/dl (3.3-4.9); ALBUMIN/GLOBULIN RATIO 0.88; CREATININE 0.89 mg/dl (0.44-1.00); POTASSIUM 4.1 mmol/L (3.5-5.1); TOTAL PROTEIN 5.1 g/dl (6.1-8.1)
[2016-10-31 07:15] VITALS: BP 136/61; RESP 18
[2016-10-31] MEDS: INSULIN ASPART [NOVOLOG] 3 ML PEN SC SCH ×4 (07:52→21:00)
[2016-10-31] MEDS: SENNA/DOCUSATE NA (8.6MG/50MG) TAB PO SCH ×2 (08:01→21:08)
[2016-10-31] MEDS: FERROUS SULFATE (EC) 325 MG TAB PO SCH (08:01)
[2016-10-31] MEDS: FENOFIBRATE 145 MG TAB PO SCH (08:01)
[2016-10-31] MEDS: FUROSEMIDE 20 MG INJ IV SCH (08:01)
[2016-10-31] MEDS: FAMOTIDINE 20 MG TAB PO SCH (08:01)
--- NOTE | 2016-10-31 12:01 | PN ---
Date/Time of Note Date/Time of Note DATE: 10/31/16 TIME: 11:54 Assessment/Plan VTE Prophylaxis VTE Prophylaxis Intervention: SCD's Lines/Catheters IV C[facility]ter Type (from [facility] Saline Lock Urinary Cath still in place: Yes Reason Cath still needed: terminal illness/intractable pain Assessment/Plan Assessment/Plan Assessment 1. Acute intracranial hemorrhage: No need for surgical intervention per neurosurgery. stable CT appearance. 2. Altered mental status: thought to be secondary to sepsis 2/2 UTI pain to #1 3. Right lower abdomen wound. 4. Hypertension. 5. Diabetes mellitus. 6. Dyslipidemia. 7. Hyponatremia. Plan: -The patient remains altered. EEG showing toxic metabolic encephalopathy. No evidence of seizure. MRI showed stable appearance of hemorrhage with chronic infarcts and multiple foci of signal loss. At this time patient's encephalopathy is likely multifactorial and will likely take time to improve if it will at all. However, prognosis is quite guarded. -Hemoglobin downtrending. If family willing, will transfuse PRBCs. Continue ferrous sulfate. - per previous note, plan is to discharge pt home with hospice once it has been set up. Exam/Review of Systems Vital Signs Vitals Vital Signs Date Time Temp Pulse Resp B/P Pulse Ox O2 Delivery O2 Flow Rate FiO2 10/31/16 11:13 Nasal Cannula 3.0 10/31/16 02:07 97.8 62 18 136/61 99 Intake and Output 10/30/16 10/30/16 10/31/16 15:00 23:00 07:00 Intake Total 50 ml 750 ml 110 ml Output Total 700 ml 300 ml Balance 50 ml 50 ml -190 ml Results Result Diagram: 10/31/16 0437 10/31/16 0437 Results 24 hrs Laboratory Tests Test 10/30/16 12:07 10/30/16 17:31 10/30/16 17:49 10/30/16 18:08 Bedside Glucose 191 56 L 100 79 Test 10/30/16 18:29 10/30/16 18:45 10/30/16 20:13 10/31/16 01:29 Bedside Glucose 201 135 222 H 194 Test 10/31/16 04:37 10/31/16 07:52 10/31/16 11:50 White Blood Count 10.7 Red Blood Count 2.93 L Hemoglobin 7.6 L Hematocrit 25.1 L Mean Corpuscular Volume 85.7 Mean Corpuscular Hemoglobin 25.9 L Mean Corpuscular Hemoglobin Concent 30.3 L Red Cell Distribution Width 18.2 H Platelet Count 488 H Mean Platelet Volume 12.0 H Neutrophils % 62.6 Lymphocytes % 24.5 Monocytes % 8.3 Eosinophils % 3.4 Basophils % 0.4 Nucleated Red Blood Cells % 0.0 Neutrophils # (Manual) 6.7 Lymphocytes # 2.6 Monocytes # 0.9 Eosinophils # 0.4 Basophils # 0.0 Nucleated Red Blood Cells # 0.0 Sodium Level 140 Potassium Level 4.1 Chloride Level 101 Carbon Dioxide Level 34 H Anion Gap 9 Blood Urea Nitrogen 32 H Creatinine 0.89 Glucose Level 112 # Calcium Level 8.0 L Total Bilirubin 0.0 L Direct Bilirubin 0.00 Indirect Bilirubin 0.0 Aspartate Amino Transf (AST/SGOT) 19 Alanine Aminotransferase (ALT/SGPT) 27 Alkaline Phosphatase 50 Total Protein 5.1 L Albumin 2.4 L Globulin 2.70 Albumin/Globulin Ratio 0.88 Bedside Glucose 100 123 Medications Medications Current Medications Ondansetron HCl (Zofran Inj) 4 mg Q6H PRN IV NAUSEA AND/OR VOMITING; Start at 03:30 Acetaminophen (Tylenol Liquid) 650 mg Q6H PRN PO PAIN LEVEL 1-3 OR FEVER; Start 10/22/16 at 03:30 Morphine Sulfate (morphine) 2 mg Q4H PRN IV PAIN LEVEL 7-10; Start 10/22/16 at 03:30 Lorazepam (Ativan) 0.5 mg Q4H PRN IV ANXIETY Last administered on 10/28/16 10: 30; Admin Dose 0.5 MG; Start 10/22/16 at 03:30 Fenofibrate (Tricor) 145 mg DAILY PO Last administered on 10/31/16 08:01; Admin Dose 145 MG; Start 10/22/16 at 09:00 Ferrous Sulfate (Ferrous Sulfate (Ec)) 325 mg DAILY PO Last administered on 10/31 08:01; Admin Dose 325 MG; Start 10/22/16 at 09:00 Miscellaneous Information 1 ea NOTE XX Last administered on 10/25/16 08:47; Admin Dose 1 EA; Start 10/22/16 at 03:45 Glucose (Glutose) 15 gm Q15M PRN PO DECREASED GLUCOSE; Start 10/22/16 at 03:45 Glucose (Glutose) 22.5 gm Q15M PRN PO DECREASED GLUCOSE; Start 10/22/16 at 03: 45 Dextrose (D50w Syringe) 25 ml Q15M PRN IV DECREASED GLUCOSE Last administered on 10/29/16 08:40; Admin Dose 25 ML; Start 10/22/16 at 03:45 Dextrose (D50w Syringe) 50 ml Q15M PRN IV DECREASED GLUCOSE; Start 10/22/16 at 03:45 Glucagon (Glucagen) 1 mg Q15M PRN IM DECREASED GLUCOSE; Start 10/22/16 at 03:45 Glucose (Glutose) 15 gm Q15M PRN BUCCAL DECREASED GLUCOSE Last administered on 10/30/16 18:13; Admin Dose 15 GM; Start 10/22/16 at 03:45 Famotidine (Pepcid) 20 mg DAILY PO Last administered on 10/31/16 08:01; Admin Dose 20 MG; Start 10/24/16 at 09:00 Diagnostic Test (Pha) (Accu-Chek) 1 ea 02 XX Last administered on 10/31/16 01: 29; Admin Dose 1 EA; Start 10/25/16 at 02:00 Diagnostic Test (Pha) (Accu-Chek) 1 ea 02 XX Last administered on 10/31/16 01: 29; Admin Dose 1 EA; Start 10/25/16 at 02:00 Carvedilol 12.5 mg 12.5 mg BID PO Last administered on 10/30/16 20:08; Admin Dose 12.5 MG; Start 10/26/16 at 21:00 Piperacillin Sod/ Tazobactam Sod 50 ml @ 100 mls/hr Q8 IVPB Last administered on 10/31/16 04:14; Admin Dose 100 MLS/HR; Start 10/28/16 at 14:00 Fluconazole (Diflucan 200 Mg/ NS (Pmx)) 100 ml @ 100 mls/hr Q24H IVPB Last administered on 10/30/16 14:15; Admin Dose 100 MLS/HR; Start 10/28/16 at 14:00 Magnesium Hydroxide (Milk Of Mag) 30 ml DAILY PRN PO constipation Last administered on 10/29/16 17:41; Admin Dose 30 ML; Start 10/29/16 at 17:30 Senna/Docusate Sodium (Senokot-S) 1 tab BID PO Last administered on 10/31/16 08 :01; Admin Dose 1 TAB; Start 10/29/16 at 21:00 Furosemide (Lasix) 20 mg DAILY IV Last administered on 10/31/16 08:01; Admin Dose 20 MG; Start 10/30/16 at 09:00; Stop 11/02/16 at 08:59 JELANI HEBERT MD Oct 31, 2016 12:01
[2016-10-31 14:00] VITALS: BP 128/56; RESP 18
[2016-10-31] MEDS: FLUCONAZOLE 200 MG/NS (PMX) 100 ML IVPB SCH (14:21)
[2016-10-31 20:16] VITALS: BP 151/69; RESP 20
[2016-11-01] MEDS: ACCU-CHEK XX SCH ×2 (02:00)
[2016-11-01 02:35] VITALS: BP 148/67; RESP 19
[2016-11-01 05:22] LABS: BASOPHIL # 0.1 10^3/ul (0.0-0.1); BASOPHILS % 0.5 % (0.0-2.0); EOSINOPHILS # 0.3 10^3/ul (0.0-0.5); EOSINOPHILS % 3.4 % (0.0-7.0); HEMATOCRIT 25.9 % (37.0-47.0); LYMPHOCYTES # 2.3 10^3/ul (0.8-2.9); LYMPHOCYTES % 22.5 % (15.0-51.0); MEAN CORPUSCULAR HEMOGLOBIN 25.6 pg (29.0-33.0); MEAN CORPUSCULAR HGB CONC 30.9 g/dl (32.0-37.0); MEAN PLATELET VOLUME 11.4 fl (7.4-10.4); MONOCYTE # 0.7 10^3/ul (0.3-0.9); MONOCYTES % 6.5 % (0.0-11.0); NEUTROPHILS % 66.3 % (39.0-77.0); PLATELET COUNT 536 10^3/UL (140-415); RED BLOOD COUNT 3.12 10^6/ul (4.20-5.40); RED CELL DISTRIBUTION WIDTH 17.8 % (11.5-14.5); WHITE BLOOD COUNT 10.1 10^3/ul (4.8-10.8)
[2016-11-01] MEDS: PIPER-TAZO 2.25 GM (PMX) 50 ML IVPB SCH (05:32)
[2016-11-01 05:52] LABS: ALBUMIN 2.3 g/dl (3.3-4.9); ALBUMIN/GLOBULIN RATIO 0.85; CALCIUM 8.5 mg/dl (8.4-10.2); CREATININE 0.89 mg/dl (0.44-1.00); POTASSIUM 3.8 mmol/L (3.5-5.1)
[2016-11-01 07:15] VITALS: BP 155/69; RESP 18
[2016-11-01] MEDS: INSULIN ASPART [NOVOLOG] 3 ML PEN SC SCH ×4 (07:51→21:45)
[2016-11-01] MEDS: FERROUS SULFATE (EC) 325 MG TAB PO SCH ×2 (09:00→09:34)
[2016-11-01] MEDS: SENNA/DOCUSATE NA (8.6MG/50MG) TAB PO SCH ×2 (09:00→21:45)
[2016-11-01] MEDS: FAMOTIDINE 20 MG TAB PO SCH (09:34)
[2016-11-01] MEDS: FENOFIBRATE 145 MG TAB PO SCH (09:34)
[2016-11-01] MEDS: FUROSEMIDE 20 MG INJ IV SCH (09:36)
[2016-11-01 11:00] VITALS: BP 138/60; PULSE 58
[2016-11-01] MEDS: FERROUS SULFATE 60 MG/ML 5ML CUP PO SCH (11:55)
[2016-11-01 14:00] VITALS: BP 155/69; RESP 18
--- NOTE | 2016-11-01 16:01 | PN ---
Date/Time of Note Date/Time of Note DATE: 11/01/16 TIME: 15:54 Assessment/Plan VTE Prophylaxis VTE Prophylaxis Intervention: SCD's Lines/Catheters IV Catheter Type (from Nrs): Saline Lock Urinary Cath still in place: Yes Reason Cath still needed: other (indicate) Assessment/Plan Assessment/Plan 86 yo F with HTN admitted for AMS found to have [id number] left globus pallidus ICH. Not much significant improvement in mentation since admission PLAN sp neurosurgical eval, no indication for surgical intervention. bleed stable on serial imaging studies no evidence of UTI as urine cultures grew out yeast and vaginal jluis-->both of which represent colonization/contamination cont BP meds pt medically stable for SNF transfer Exam/Review of Systems Vital Signs Vitals Vital Signs Date Time Temp Pulse Resp B/P Pulse Ox O2 Delivery O2 Flow Rate FiO2 11/01/16 14:00 97.8 63 18 155/69 96 11/01/16 08:15 Nasal Cannula 3.0 Intake and Output 10/31/16 10/31/16 11/01/16 15:00 23:00 07:00 Intake Total 50 ml 650 ml 200 ml Output Total 1200 ml 500 ml Balance 50 ml -550 ml -300 ml Results Result Diagram: 11/01/16 0431 11/01/16 0431 Results 24 hrs Laboratory Tests Test 10/31/16 17:07 10/31/16 21:04 11/01/16 04:31 11/01/16 07:50 Bedside Glucose 168 161 123 White Blood Count 10.1 Red Blood Count 3.12 L Hemoglobin 8.0 L Hematocrit 25.9 L Mean Corpuscular Volume 83.0 Mean Corpuscular Hemoglobin 25.6 L Mean Corpuscular Hemoglobin Concent 30.9 L Red Cell Distribution Width 17.8 H Platelet Count 536 H Mean Platelet Volume 11.4 H Neutrophils % 66.3 Lymphocytes % 22.5 Monocytes % 6.5 Eosinophils % 3.4 Basophils % 0.5 Nucleated Red Blood Cells % 0.0 Neutrophils # (Manual) 6.7 Lymphocytes # 2.3 Monocytes # 0.7 Eosinophils # 0.3 Basophils # 0.1 Nucleated Red Blood Cells # 0.0 Sodium Level 137 Potassium Level 3.8 Chloride Level 98 Carbon Dioxide Level 37 H Anion Gap 6 L Blood Urea Nitrogen 29 H Creatinine 0.89 Glucose Level 119 Calcium Level 8.5 Total Bilirubin 0.0 L Direct Bilirubin 0.00 Indirect Bilirubin 0.0 Aspartate Amino Transf (AST/SGOT) 19 Alanine Aminotransferase (ALT/SGPT) 25 Alkaline Phosphatase 54 Total Protein 5.0 L Albumin 2.3 L Globulin 2.70 Albumin/Globulin Ratio 0.85 Test 11/01/16 11:54 Bedside Glucose 235 H Medications Medications Current Medications Ondansetron HCl (Zofran Inj) 4 mg Q6H PRN IV NAUSEA AND/OR VOMITING; Start at 03:30 Acetaminophen (Tylenol Liquid) 650 mg Q6H PRN PO PAIN LEVEL 1-3 OR FEVER; Start 10/22/16 at 03:30 Morphine Sulfate (morphine) 2 mg Q4H PRN IV PAIN LEVEL 7-10; Start 10/22/16 at 03:30 Lorazepam (Ativan) 0.5 mg Q4H PRN IV ANXIETY Last administered on 10/28/16 10: 30; Admin Dose 0.5 MG; Start 10/22/16 at 03:30 Fenofibrate (Tricor) 145 mg DAILY PO Last administered on 11/01/16 09:34; Admin Dose 145 MG; Start 10/22/16 at 09:00 Miscellaneous Information 1 ea NOTE XX Last administered on 10/25/16 08:47; Admin Dose 1 EA; Start 10/22/16 at 03:45 Glucose (Glutose) 15 gm Q15M PRN PO DECREASED GLUCOSE; Start 10/22/16 at 03:45 Glucose (Glutose) 22.5 gm Q15M PRN PO DECREASED GLUCOSE; Start 10/22/16 at 03: 45 Dextrose (D50w Syringe) 25 ml Q15M PRN IV DECREASED GLUCOSE Last administered on 10/29/16 08:40; Admin Dose 25 ML; Start 10/22/16 at 03:45 Dextrose (D50w Syringe) 50 ml Q15M PRN IV DECREASED GLUCOSE; Start 10/22/16 at 03:45 Glucagon (Glucagen) 1 mg Q15M PRN IM DECREASED GLUCOSE; Start 10/22/16 at 03:45 Glucose (Glutose) 15 gm Q15M PRN BUCCAL DECREASED GLUCOSE Last administered on 10/30/16 18:13; Admin Dose 15 GM; Start 10/22/16 at 03:45 Famotidine (Pepcid) 20 mg DAILY PO Last administered on 11/01/16 09:34; Admin Dose 20 MG; Start 10/24/16 at 09:00 Diagnostic Test (Pha) (Accu-Chek) 1 ea 02 XX Last administered on 10/31/16 01: 29; Admin Dose 1 EA; Start 10/25/16 at 02:00 Diagnostic Test (Pha) (Accu-Chek) 1 ea 02 XX Last administered on 10/31/16 01: 29; Admin Dose 1 EA; Start 10/25/16 at 02:00 Carvedilol (Coreg) 12.5 mg BID PO Last administered on 10/31/16 21:08; Admin Dose 12.5 MG; Start 10/26/16 at 21:00 Magnesium Hydroxide (Milk Of Mag) 30 ml DAILY PRN PO constipation Last administered on 10/29/16 17:41; Admin Dose 30 ML; Start 10/29/16 at 17:30 Senna/Docusate Sodium (Senokot-S) 1 tab BID PO Last administered on 10/31/16 21 :08; Admin Dose 1 TAB; Start 10/29/16 at 21:00 Furosemide (Lasix) 20 mg DAILY IV Last administered on 11/01/16 09:36; Admin Dose 20 MG; Start 10/30/16 at 09:00; Stop 11/02/16 at 08:59 Ferrous Sulfate (Feosol Liquid Cup) 300 mg DAILY PO Last administered on 11:55; Admin Dose 300 MG; Start 11/01/16 at 11:46 YANICK KLINE MD Nov 01, 2016 16:01
[2016-11-01 19:57] VITALS: BP 157/70; RESP 18
[2016-11-01 21:56] VITALS: BP 181/74; PULSE 67
[2016-11-02 02:00] VITALS: BP 139/78; RESP 19
[2016-11-02] MEDS: ACCU-CHEK XX SCH ×2 (02:00→03:01)
[2016-11-02 02:54] VITALS: BP 139/78; RESP 19
[2016-11-02 07:15] VITALS: BP 182/81; RESP 18
[2016-11-02] MEDS: INSULIN ASPART [NOVOLOG] 3 ML PEN SC SCH ×4 (07:45→21:40)
[2016-11-02] MEDS: FENOFIBRATE 145 MG TAB PO SCH (08:55)
[2016-11-02] MEDS: FERROUS SULFATE 60 MG/ML 5ML CUP PO SCH (08:55)
[2016-11-02] MEDS: FAMOTIDINE 20 MG TAB PO SCH (08:56)
[2016-11-02] MEDS: SENNA/DOCUSATE NA (8.6MG/50MG) TAB PO SCH ×2 (08:56→21:33)
[2016-11-02] MEDS ORDERED: FERROUS SULFATE 60 MG/ML 5ML CUP PO SCH (09:00)
[2016-11-02 11:07] VITALS: BP 158/80; PULSE 60
[2016-11-02 14:00] VITALS: BP 135/59; RESP 18
--- NOTE | 2016-11-02 15:15 | PN ---
Date/Time of Note Date/Time of Note DATE: 11/02/16 TIME: 15:11 Assessment/Plan VTE Prophylaxis VTE Prophylaxis Intervention: SCD's Lines/Catheters IV C[facility]ter Type (from [facility]): Saline Lock Urinary Cath still in place: No Assessment/Plan Assessment/Plan 86 yo F with HTN admitted for AMS found to have [id number] left globus pallidus ICH. PLAN sp neurosurgical eval, no indication for surgical intervention. bleed stable on serial imaging studies no evidence of UTI as urine cultures grew out yeast and vaginal jluis-->both of which represent colonization/contamination. abx stopped cont BP meds pt medically stable for SNF transfer Of note, concerns raised previously during pt's stay that she may need hospice criteria. At this time I am unable to find a criteria under which she would qualify. Pt has dementia, but no documented episodes of septicemia, inability to tolerate PO, pyelo, or sacral decubs as required by CMS criteria CM cs for SNF transfer. Discussed with family. Of note, unclear to me diagnosis under consideration at time of initial hospice consultation Subjective 24 Hr Interval Summary Free Text/Dictation doing better no complaints Exam/Review of Systems Vital Signs Vitals Vital Signs Date Time Temp Pulse Resp B/P Pulse Ox O2 Delivery O2 Flow Rate FiO2 11/02/16 14:00 98.8 65 18 135/59 99 11/02/16 08:05 Nasal Cannula 3.0 Intake and Output 11/01/16 11/01/16 11/02/16 15:00 23:00 07:00 Intake Total 50 ml 460 ml 50 ml Output Total 1200 ml 2 ml Balance 50 ml -740 ml 48 ml Exam nad no mrg lungs clear abd soft no rashes Results Result Diagram: 11/01/16 0431 11/01/16 0431 Results 24 hrs Laboratory Tests Test 11/01/16 17:18 11/01/16 21:36 11/02/16 02:58 11/02/16 07:44 Bedside Glucose 218 224 H 157 122 Test 11/02/16 11:56 Bedside Glucose 277 H Medications Medications Current Medications Ondansetron HCl (Zofran Inj) 4 mg Q6H PRN IV NAUSEA AND/OR VOMITING; Start at 03:30 Acetaminophen (Tylenol Liquid) 650 mg Q6H PRN PO PAIN LEVEL 1-3 OR FEVER; Start 10/22/16 at 03:30 Morphine Sulfate (morphine) 2 mg Q4H PRN IV PAIN LEVEL 7-10; Start 10/22/16 at 03:30 Lorazepam (Ativan) 0.5 mg Q4H PRN IV ANXIETY Last administered on 10/28/16 10: 30; Admin Dose 0.5 MG; Start 10/22/16 at 03:30 Fenofibrate (Tricor) 145 mg DAILY PO Last administered on 11/02/16 08:55; Admin Dose 145 MG; Start 10/22/16 at 09:00 Miscellaneous Information 1 ea NOTE XX Last administered on 10/25/16 08:47; Admin Dose 1 EA; Start 10/22/16 at 03:45 Glucose (Glutose) 15 gm Q15M PRN PO DECREASED GLUCOSE; Start 10/22/16 at 03:45 Glucose (Glutose) 22.5 gm Q15M PRN PO DECREASED GLUCOSE; Start 10/22/16 at 03: 45 Dextrose (D50w Syringe) 25 ml Q15M PRN IV DECREASED GLUCOSE Last administered on 10/29/16 08:40; Admin Dose 25 ML; Start 10/22/16 at 03:45 Dextrose (D50w Syringe) 50 ml Q15M PRN IV DECREASED GLUCOSE; Start 10/22/16 at 03:45 Glucagon (Glucagen) 1 mg Q15M PRN IM DECREASED GLUCOSE; Start 10/22/16 at 03:45 Glucose (Glutose) 15 gm Q15M PRN BUCCAL DECREASED GLUCOSE Last administered on 10/30/16 18:13; Admin Dose 15 GM; Start 10/22/16 at 03:45 Famotidine (Pepcid) 20 mg DAILY PO Last administered on 11/02/16 08:56; Admin Dose 20 MG; Start 10/24/16 at 09:00 Diagnostic Test (Pha) (Accu-Chek) 1 ea 02 XX Last administered on 10/31/16 01: 29; Admin Dose 1 EA; Start 10/25/16 at 02:00 Diagnostic Test (Pha) (Accu-Chek) 1 ea 02 XX Last administered on 10/31/16 01: 29; Admin Dose 1 EA; Start 10/25/16 at 02:00 Carvedilol (Coreg) 12.5 mg BID PO Last administered on 11/02/16 08:56; Admin Dose 12.5 MG; Start 10/26/16 at 21:00 Magnesium Hydroxide (Milk Of Mag) 30 ml DAILY PRN PO constipation Last administered on 10/29/16 17:41; Admin Dose 30 ML; Start 10/29/16 at 17:30 Senna/Docusate Sodium (Senokot-S) 1 tab BID PO Last administered on 11/02/16 08:56; Admin Dose 1 TAB; Start 10/29/16 at 21:00 Ferrous Sulfate (Feosol Liquid Cup) 300 mg DAILY PO Last administered on 08:55; Admin Dose 300 MG; Start 11/01/16 at 11:46 YANICK KLINE MD Nov 02, 2016 15:15
[2016-11-02 20:12] VITALS: BP 142/62; RESP 19
[2016-11-03] MEDS: ACCU-CHEK XX SCH ×2 (02:00)
[2016-11-03 02:05] VITALS: BP 131/63; RESP 19
[2016-11-03] MEDS: INSULIN ASPART [NOVOLOG] 3 ML PEN SC SCH ×4 (08:00→20:39)
[2016-11-03 08:20] VITALS: BP 172/74; RESP 20
[2016-11-03] MEDS: ACETAMINOPHEN 650MG/20.3ML CUP PO PRN (09:14)
[2016-11-03] MEDS: FENOFIBRATE 145 MG TAB PO SCH (09:15)
[2016-11-03] MEDS: FAMOTIDINE 20 MG TAB PO SCH (09:15)
[2016-11-03] MEDS: SENNA/DOCUSATE NA (8.6MG/50MG) TAB PO SCH ×2 (09:15→20:37)
[2016-11-03] MEDS: FERROUS SULFATE 60 MG/ML 5ML CUP PO SCH (09:15)
--- NOTE | 2016-11-03 12:01 | PN ---
Date/Time of Note Date/Time of Note DATE: 11/03/16 TIME: 11:51 Assessment/Plan VTE Prophylaxis VTE Prophylaxis Intervention: SCD's Lines/Catheters [facility] Saline Lock Urinary Cath still in place: No Assessment/Plan Assessment/Plan 1. Acute intracranial hemorrhage: No need for surgical intervention per neurosurgery. stable CT appearance. 2. Altered mental status, patient eats and takes oral meds, ICH related 3. Right lower abdomen wound, stable 4. Hypertension.on coreg 5. Diabetes mellitus.on ISS 6. Dyslipidemia. on tricor 7. UTI on 10/27/2016, treated, off antibiotics Exam/Review of Systems Vital Signs Vitals Vital Signs Date Time Temp Pulse Resp B/P Pulse Ox O2 Delivery O2 Flow Rate FiO2 11/03/16 08:20 98.3 68 20 172/74 92 11/03/16 08:00 Nasal Cannula 3.0 Intake and Output 11/02/16 11/02/16 11/03/16 15:00 23:00 07:00 Intake Total 420 ml 103 ml Balance 420 ml 103 ml Exam Constitutional: alert, non-verbal Head: atraumatic, normocephalic Eyes: EOMI, PERRL, nl conjunctiva, nl lids ENMT: nl external ears & nose, nl lips & teeth, nl nasal mucosa & septum Neck: non-tender, supple Respiratory: clear to auscultation, normal air movement, No congested cough, No crackles/rales, No diminished breath sounds, No intercostal retraction, No labored breathing, No other, No respirations, No tactile fremitus, No wheezing Cardiovascular: nl pulses, regular rate and rhythm, No S3, No S4, No bruits, No diastolic murmur, No edema, No gallop, No irregular rhythm, No jugular venous distention (JVD), No murmurs/extra sounds, No other, No rub, No systolic murmur Gastrointestinal: nl liver, spleen, non-tender, soft Musculoskeletal: nl extremities to inspection Extremities: normal pulses, No calf tenderness, No clubbing, No cyanosis, No edema, No other, No palpable cord, No pitting pedal edema, No tenderness Neurological: confused, other (moves all extremities) Results Result Diagram: 11/01/16 0431 11/01/16 0431 Results 24 hrs Laboratory Tests Test 11/02/16 11:56 11/02/16 17:23 11/02/16 21:30 11/03/16 02:24 Bedside Glucose 277 H 205 296 H 187 Test 11/03/16 07:59 11/03/16 11:23 Bedside Glucose 135 276 H Medications Medications Current Medications Ondansetron HCl (Zofran Inj) 4 mg Q6H PRN IV NAUSEA AND/OR VOMITING; Start at 03:30 Acetaminophen (Tylenol Liquid) 650 mg Q6H PRN PO PAIN LEVEL 1-3 OR FEVER Last administered on 11/03/16 09:14; Admin Dose 650 MG; Start 10/22/16 at 03:30 Morphine Sulfate (morphine) 2 mg Q4H PRN IV PAIN LEVEL 7-10; Start 10/22/16 at 03:30 Fenofibrate (Tricor) 145 mg DAILY PO Last administered on 11/03/16 09:15; Admin Dose 145 MG; Start 10/22/16 at 09:00 Miscellaneous Information 1 ea NOTE XX Last administered on 10/25/16 08:47; Admin Dose 1 EA; Start 10/22/16 at 03:45 Glucose (Glutose) 15 gm Q15M PRN PO DECREASED GLUCOSE; Start 10/22/16 at 03:45 Glucose (Glutose) 22.5 gm Q15M PRN PO DECREASED GLUCOSE; Start 10/22/16 at 03: 45 Dextrose (D50w Syringe) 25 ml Q15M PRN IV DECREASED GLUCOSE Last administered on 10/29/16 08:40; Admin Dose 25 ML; Start 10/22/16 at 03:45 Dextrose (D50w Syringe) 50 ml Q15M PRN IV DECREASED GLUCOSE; Start 10/22/16 at 03:45 Glucagon (Glucagen) 1 mg Q15M PRN IM DECREASED GLUCOSE; Start 10/22/16 at 03:45 Glucose (Glutose) 15 gm Q15M PRN BUCCAL DECREASED GLUCOSE Last administered on 10/30/16 18:13; Admin Dose 15 GM; Start 10/22/16 at 03:45 Famotidine (Pepcid) 20 mg DAILY PO Last administered on 11/03/16 09:15; Admin Dose 20 MG; Start 10/24/16 at 09:00 Diagnostic Test (Pha) (Accu-Chek) 1 ea 02 XX Last administered on 11/03/16 02: 00; Admin Dose 1 EA; Start 10/25/16 at 02:00 Diagnostic Test (Pha) (Accu-Chek) 1 ea 02 XX Last administered on 11/03/16 02: 00; Admin Dose 1 EA; Start 10/25/16 at 02:00 Carvedilol (Coreg) 12.5 mg BID PO Last administered on 11/03/16 09:16; Admin Dose 12.5 MG; Start 10/26/16 at 21:00 Magnesium Hydroxide (Milk Of Mag) 30 ml DAILY PRN PO constipation Last administered on 10/29/16 17:41; Admin Dose 30 ML; Start 10/29/16 at 17:30 Senna/Docusate Sodium (Senokot-S) 1 tab BID PO Last administered on 11/03/16 09:15; Admin Dose 1 TAB; Start 10/29/16 at 21:00 Ferrous Sulfate (Feosol Liquid Cup) 300 mg DAILY PO Last administered on 09:15; Admin Dose 300 MG; Start 11/01/16 at 11:46 JEFFREY HAQ MD Nov 03, 2016 12:01
[2016-11-03 15:07] VITALS: BP 121/56; RESP 20
[2016-11-03 19:35] VITALS: BP 137/63; RESP 18
[2016-11-04 02:00] VITALS: BP 144/63; RESP 16
[2016-11-04] MEDS: ACCU-CHEK XX SCH ×2 (02:00)
[2016-11-04 07:15] VITALS: BP 157/70; RESP 18
[2016-11-04] MEDS: INSULIN ASPART [NOVOLOG] 3 ML PEN SC SCH ×4 (08:00→20:45)
[2016-11-04] MEDS: FERROUS SULFATE 60 MG/ML 5ML CUP PO SCH (08:20)
[2016-11-04] MEDS: FENOFIBRATE 145 MG TAB PO SCH (08:20)
[2016-11-04] MEDS: FAMOTIDINE 20 MG TAB PO SCH (08:20)
[2016-11-04] MEDS: SENNA/DOCUSATE NA (8.6MG/50MG) TAB PO SCH ×2 (08:21→20:42)
--- NOTE | 2016-11-04 13:28 | PN ---
Date/Time of Note Date/Time of Note DATE: 11/04/16 TIME: 13:26 Assessment/Plan VTE Prophylaxis VTE Prophylaxis Intervention: SCD's Lines/Catheters IV Catheter Type (from [facility]): Saline Lock Urinary Cath still in place: No Assessment/Plan Assessment/Plan 1. Acute intracranial hemorrhage: No need for surgical intervention per neurosurgery. stable CT appearance. 2. Altered mental status, patient eats and takes oral meds, ICH related 3. Right lower abdomen wound, stable 4. Hypertension.on coreg 5. Diabetes mellitus.on ISS 6. Dyslipidemia. on tricor 7. UTI on 10/27/2016, treated, off antibiotics 8. Awaiting for hospice evaluation Subjective 24 Hr Interval Summary Free Text/Dictation confused, alert and no distress Exam/Review of Systems Vital Signs Vitals Vital Signs Date Time Temp Pulse Resp B/P Pulse Ox O2 Delivery O2 Flow Rate FiO2 11/04/16 11:35 Nasal Cannula 2.0 11/04/16 07:15 97.9 58 18 157/70 97 Intake and Output 11/03/16 11/03/16 11/04/16 14:59 22:59 06:59 Intake Total 500 ml 450 ml Balance 500 ml 450 ml Exam Constitutional: alert, non-verbal Head: atraumatic, normocephalic Eyes: EOMI, PERRL, nl conjunctiva, nl lids ENMT: nl external ears & nose, nl lips & teeth, nl nasal mucosa & septum Neck: non-tender, supple Respiratory: clear to auscultation, normal air movement, No congested cough, No crackles/rales, No diminished breath sounds, No intercostal retraction, No labored breathing, No other, No respirations, No tactile fremitus, No wheezing Cardiovascular: nl pulses, regular rate and rhythm, No S3, No S4, No bruits, No diastolic murmur, No edema, No gallop, No irregular rhythm, No jugular venous distention (JVD), No murmurs/extra sounds, No other, No rub, No systolic murmur Gastrointestinal: nl liver, spleen, non-tender, soft, No ascites, No bowel sounds, No distended, No firm, No hepatomegaly, No mass , No other, No rebound or guarding, No splenomegaly, No surgical scars, No tender Musculoskeletal: nl extremities to inspection Extremities: normal pulses, No calf tenderness, No clubbing, No cyanosis, No edema, No other, No palpable cord, No pitting pedal edema, No tenderness 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, 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 Skin: nl turgor Lymph: nl lymph nodes Results Result Diagram: 11/01/161 11/01/16 0431 Results 24 hrs Laboratory Tests Test 11/03/16 16:41 11/03/16 17:32 11/03/16 20:39 11/04/16 07:53 Bedside Glucose 153 126 147 121 Test 11/04/16 11:44 Bedside Glucose 159 Medications Medications Current Medications Ondansetron HCl (Zofran Inj) 4 mg Q6H PRN IV NAUSEA AND/OR VOMITING; Start at 03:30 Acetaminophen (Tylenol Liquid) 650 mg Q6H PRN PO PAIN LEVEL 1-3 OR FEVER Last administered on 11/03/16 09:14; Admin Dose 650 MG; Start 10/22/16 at 03:30 Morphine Sulfate (morphine) 2 mg Q4H PRN IV PAIN LEVEL 7-10; Start 10/22/16 at 03:30 Fenofibrate (Tricor) 145 mg DAILY PO Last administered on 11/04/16 08:20; Admin Dose 145 MG; Start 10/22/16 at 09:00 Miscellaneous Information 1 ea NOTE XX Last administered on 10/25/16 08:47; Admin Dose 1 EA; Start 10/22/16 at 03:45 Glucose (Glutose) 15 gm Q15M PRN PO DECREASED GLUCOSE; Start 10/22/16 at 03:45 Glucose (Glutose) 22.5 gm Q15M PRN PO DECREASED GLUCOSE; Start 10/22/16 at 03: 45 Dextrose (D50w Syringe) 25 ml Q15M PRN IV DECREASED GLUCOSE Last administered on 10/29/16 08:40; Admin Dose 25 ML; Start 10/22/16 at 03:45 Dextrose (D50w Syringe) 50 ml Q15M PRN IV DECREASED GLUCOSE; Start 10/22/16 at 03:45 Glucagon (Glucagen) 1 mg Q15M PRN IM DECREASED GLUCOSE; Start 10/22/16 at 03:45 Glucose (Glutose) 15 gm Q15M PRN BUCCAL DECREASED GLUCOSE Last administered on 10/30/16 18:13; Admin Dose 15 GM; Start 10/22/16 at 03:45 Famotidine (Pepcid) 20 mg DAILY PO Last administered on 11/04/16 08:20; Admin Dose 20 MG; Start 10/24/16 at 09:00 Diagnostic Test (Pha) (Accu-Chek) 1 ea 02 XX Last administered on 11/03/16 02: 00; Admin Dose 1 EA; Start 10/25/16 at 02:00 Diagnostic Test (Pha) (Accu-Chek) 1 ea 02 XX Last administered on 11/03/16 02: 00; Admin Dose 1 EA; Start 10/25/16 at 02:00 Carvedilol (Coreg) 12.5 mg BID PO Last administered on 11/03/16 20:36; Admin Dose 12.5 MG; Start 10/26/16 at 21:00 Magnesium Hydroxide (Milk Of Mag) 30 ml DAILY PRN PO constipation Last administered on 10/29/16 17:41; Admin Dose 30 ML; Start 10/29/16 at 17:30 Senna/Docusate Sodium (Senokot-S) 1 tab BID PO Last administered on 11/04/16 08:21; Admin Dose 1 TAB; Start 10/29/16 at 21:00 Ferrous Sulfate (Feosol Liquid Cup) 300 mg DAILY PO Last administered on 08:20; Admin Dose 300 MG; Start 11/01/16 at 11:46 JEFFREY HAQ MD Nov 04, 2016 13:28
[2016-11-04 14:00] VITALS: BP 162/72; RESP 20
[2016-11-04 20:30] VITALS: BP 155/66; RESP 20
[2016-11-05] MEDS: ACCU-CHEK XX SCH ×2 (02:00)
[2016-11-05 02:45] VITALS: BP 179/90; RESP 20
[2016-11-05] MEDS: hydrALAzine 20 MG INJ IV PRN ×2 (04:09→08:41)
[2016-11-05 04:30] VITALS: BP 148/87
[2016-11-05 07:30] VITALS: BP 157/65; RESP 16
[2016-11-05 08:00] VITALS: BP 179/78; RESP 20
[2016-11-05] MEDS: INSULIN ASPART [NOVOLOG] 3 ML PEN SC SCH ×4 (08:00→21:08)
[2016-11-05] MEDS: SENNA/DOCUSATE NA (8.6MG/50MG) TAB PO SCH ×2 (08:30→21:14)
[2016-11-05] MEDS: FERROUS SULFATE 60 MG/ML 5ML CUP PO SCH (08:30)
[2016-11-05] MEDS: FENOFIBRATE 145 MG TAB PO SCH (08:30)
[2016-11-05] MEDS: FAMOTIDINE 20 MG TAB PO SCH (08:31)
[2016-11-05 11:53] VITALS: BP 146/60; PULSE 59
--- NOTE | 2016-11-05 13:12 | PN ---
Date/Time of Note Date/Time of Note DATE: 11/05/16 TIME: 13:10 Assessment/Plan VTE Prophylaxis VTE Prophylaxis Intervention: SCD's Lines/Catheters IV [facility] Type (from [facility]): Saline Lock Urinary Cath still in place: No Assessment/Plan Assessment/Plan 1. Acute intracranial hemorrhage: No need for surgical intervention per neurosurgery. stable CT appearance. 2. Altered mental status, dementia, stable 3. Right lower abdomen wound, stable 4. Hypertension.on coreg 5. Diabetes mellitus.on ISS 6. Dyslipidemia. on tricor 7. UTI on 10/27/2016, treated, off antibiotics 8. Awaiting for hospice evaluation Subjective 24 Hr Interval Summary Free Text/Dictation no distress, alert but demented Exam/Review of Systems Vital Signs Vitals Vital Signs Date Time Temp Pulse Resp B/P Pulse Ox O2 Delivery O2 Flow Rate FiO2 11/05/16 11:53 59 146/60 11/05/16 08:00 97.6 20 94 11/05/16 05:09 2.0 11/04/16 20:00 Nasal Cannula Intake and Output 11/04/16 11/04/16 11/05/16 15:00 23:00 07:00 Intake Total 600 ml 100 ml Balance 600 ml 100 ml Exam Constitutional: alert, non-verbal Head: atraumatic, normocephalic Eyes: EOMI, PERRL, nl conjunctiva, nl lids ENMT: nl external ears & nose, nl lips & teeth, nl nasal mucosa & septum Neck: non-tender Respiratory: clear to auscultation, normal air movement, No congested cough, No crackles/rales, No diminished breath sounds, No intercostal retraction, No labored breathing, No other, No respirations, No tactile fremitus, No wheezing Cardiovascular: nl pulses, regular rate and rhythm, No S3, No S4, No bruits, No diastolic murmur, No edema, No gallop, No irregular rhythm, No jugular venous distention (JVD), No murmurs/extra sounds, No other, No rub, No systolic murmur Gastrointestinal: nl liver, spleen, non-tender, soft, No ascites, No bowel sounds, No distended, No firm, No hepatomegaly, No mass , No other, No rebound or guarding, No splenomegaly, No surgical scars, No tender Musculoskeletal: nl extremities to inspection Extremities: normal pulses, No calf tenderness, No clubbing, No cyanosis, No edema, No other, No palpable cord, No pitting pedal edema, No tenderness 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, 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 Skin: nl turgor Results Result Diagram: 11/01/16 0431 11/01/16 0431 Results 24 hrs Laboratory Tests Test 11/04/16 17:02 11/04/16 20:41 11/05/16 02:20 11/05/16 08:28 Bedside Glucose 242 H 254 H 114 115 Test 11/05/16 11:53 Bedside Glucose 260 H Medications Medications Current Medications Ondansetron HCl (Zofran Inj) 4 mg Q6H PRN IV NAUSEA AND/OR VOMITING; Start at 03:30 Acetaminophen (Tylenol Liquid) 650 mg Q6H PRN PO PAIN LEVEL 1-3 OR FEVER Last administered on 11/03/16 09:14; Admin Dose 650 MG; Start 10/22/16 at 03:30 Morphine Sulfate (morphine) 2 mg Q4H PRN IV PAIN LEVEL 7-10; Start 10/22/16 at 03:30 Fenofibrate (Tricor) 145 mg DAILY PO Last administered on 11/05/16 08:30; Admin Dose 145 MG; Start 10/22/16 at 09:00 Miscellaneous Information 1 ea NOTE XX Last administered on 10/25/16 08:47; Admin Dose 1 EA; Start 10/22/16 at 03:45 Glucose (Glutose) 15 gm Q15M PRN PO DECREASED GLUCOSE; Start 10/22/16 at 03:45 Glucose (Glutose) 22.5 gm Q15M PRN PO DECREASED GLUCOSE; Start 10/22/16 at 03: 45 Dextrose (D50w Syringe) 25 ml Q15M PRN IV DECREASED GLUCOSE Last administered on 10/29/16 08:40; Admin Dose 25 ML; Start 10/22/16 at 03:45 Dextrose (D50w Syringe) 50 ml Q15M PRN IV DECREASED GLUCOSE; Start 10/22/16 at 03:45 Glucagon (Glucagen) 1 mg Q15M PRN IM DECREASED GLUCOSE; Start 10/22/16 at 03:45 Glucose (Glutose) 15 gm Q15M PRN BUCCAL DECREASED GLUCOSE Last administered on 10/30/16 18:13; Admin Dose 15 GM; Start 10/22/16 at 03:45 Famotidine (Pepcid) 20 mg DAILY PO Last administered on 11/05/16 08:31; Admin Dose 20 MG; Start 10/24/16 at 09:00 Diagnostic Test (Pha) (Accu-Chek) 1 ea 02 XX Last administered on 11/03/16 02: 00; Admin Dose 1 EA; Start 10/25/16 at 02:00 Carvedilol (Coreg) 12.5 mg BID PO Last administered on 11/04/16 20:42; Admin Dose 12.5 MG; Start 10/26/16 at 21:00 Magnesium Hydroxide (Milk Of Mag) 30 ml DAILY PRN PO constipation Last administered on 10/29/16 17:41; Admin Dose 30 ML; Start 10/29/16 at 17:30 Senna/Docusate Sodium (Senokot-S) 1 tab BID PO Last administered on 11/05/16 08:30; Admin Dose 1 TAB; Start 10/29/16 at 21:00 Ferrous Sulfate (Feosol Liquid Cup) 300 mg DAILY PO Last administered on 08:30; Admin Dose 300 MG; Start 11/01/16 at 11:46 Hydralazine HCl (Apresoline) 10 mg Q4H PRN IV ELEVATED SYSTOLIC BP Last administered on 11/05/16 08:41; Admin Dose 10 MG; Start 11/05/16 at 04:00 JEFFREY HAQ MD Nov 05, 2016 13:12
[2016-11-05 14:00] VITALS: BP_SYST 106; BP_SYST 138; BP_DIAS 53; BP_DIAS 62; RESP 18; RESP 20
[2016-11-05] MEDS: AMLODIPINE 5 MG TAB PO SCH (14:05)
[2016-11-06] MEDS: ACCU-CHEK XX SCH (02:00)
[2016-11-06 02:51] VITALS: BP 136/60; RESP 18
[2016-11-06 05:57] LABS: BASOPHILS % 0.3 % (0.0-2.0); EOSINOPHILS # 0.4 10^3/ul (0.0-0.5); EOSINOPHILS % 3.8 % (0.0-7.0); HEMATOCRIT 27.5 % (37.0-47.0); HEMOGLOBIN 8.5 g/dl (12.0-16.0); LYMPHOCYTES # 2.4 10^3/ul (0.8-2.9); LYMPHOCYTES % 24.2 % (15.0-51.0); MEAN CORPUSCULAR HEMOGLOBIN 25.5 pg (29.0-33.0); MEAN CORPUSCULAR HGB CONC 30.9 g/dl (32.0-37.0); MEAN CORPUSCULAR VOLUME 82.6 fl (82.0-101.0); MEAN PLATELET VOLUME 11.4 fl (7.4-10.4); MONOCYTE # 0.7 10^3/ul (0.3-0.9); MONOCYTES % 6.9 % (0.0-11.0); NEUTROPHIL # 6.3 10^3/ul (1.6-7.5); NEUTROPHILS % 64.3 % (39.0-77.0); PLATELET COUNT 552 10^3/UL (140-415); RED BLOOD COUNT 3.33 10^6/ul (4.20-5.40); RED CELL DISTRIBUTION WIDTH 18.2 % (11.5-14.5); WHITE BLOOD COUNT 9.8 10^3/ul (4.8-10.8)
[2016-11-06 06:25] LABS: CALCIUM 8.7 mg/dl (8.4-10.2); CREATININE 0.91 mg/dl (0.44-1.00); POTASSIUM 4.1 mmol/L (3.5-5.1)
[2016-11-06 08:00] VITALS: BP 160/80; RESP 18
[2016-11-06] MEDS: INSULIN ASPART [NOVOLOG] 3 ML PEN SC SCH ×4 (08:00→21:00)
[2016-11-06] MEDS: FENOFIBRATE 145 MG TAB PO SCH (09:34)
[2016-11-06] MEDS: FERROUS SULFATE 60 MG/ML 5ML CUP PO SCH (09:34)
[2016-11-06] MEDS: FAMOTIDINE 20 MG TAB PO SCH (09:35)
[2016-11-06] MEDS: SENNA/DOCUSATE NA (8.6MG/50MG) TAB PO SCH ×2 (09:37→20:53)
[2016-11-06] MEDS: AMLODIPINE 5 MG TAB PO SCH (09:37)
[2016-11-06] MEDS ORDERED: CARV12.579 PO (13:10)
--- NOTE | 2016-11-06 13:20 | DS ---
Date/Time of Note Date/Time of Note DATE: 11/06/16 TIME: 13:12 Discharge Summary Admission/Discharge Info Admit Date/Time Oct 22, 2016 at 05:33 Discharge Date/Time Discharge Diagnosis 1. Acute intracranial hemorrhage: No need for surgical intervention per neurosurgery, stable 2. Altered mental status, dementia, stable 3. Right lower abdomen wound, stable 4. Hypertension.on coreg 5. Diabetes mellitus.on metformin and insulin 6. Dyslipidemia. on tricor 7. UTI on 10/27/2016, treated, off antibiotics Patient Condition: Stable Hospital Course This is an 86-year-old female with a history of hypertension, diabetes, dyslipidemia, dementia who was brought to the ER from home for altered mental status. Patient is severely demented, unable to give history. In the ER brain CT showed acute left globus pallidus intracranial hemorrhage with mild surrounding edema and old right basal ganglia lacunar infarct. Chest x-ray with right lung base pneumonia. Her initial BP was 141/70 with a heart rate of 85. Labs shows a WBC of 15,000, potassium 2.8, hemoglobin 10, BUN 35, creatinine 1.02, glucose 240. Repeated CT scan and MRI brain indicates the incracranial hemorrhage is stable. Neurosurgery consultation does not recommend surgery. Patient is clinically stable but severely demented. Family signs her up with hospice care. Patient is discharged home today with hospice care. Home Meds Active Scripts Carvedilol* (Carvedilol*) 12.5 Mg Tablet, 12.5 MG PO BID for 30 Days, TAB Prov:JEFFREY HAQ MD 11/06/16 Reported Medications Insulin Glargine* (Lantus*) 100 Unit/Ml Soln, 6 UNIT SC QHS, #1 VIAL 10/21/16 Linaclotide (LINZESS) 290 Mcg Capsule, 290 MCG PO DAILY Y for NEEDED, #30 CAP 10/21/16 Fenofibrate Nanocrystallized* (Fenofibrate*) 145 Mg Tablet, 145 MG PO DAILY, TAB 10/21/16 Insulin Aspart* (Novolog Insulin Pen*) 100 Unit/Ml Soln, 0 SC .SLIDING SCALE AC , EA 10/21/16 Metformin Hcl* (Metformin Hcl*) 1,000 Mg Tablet, 1000 MG PO WITH BREAKFAST DINNE , #60 TAB 10/21/16 Meclizine Hcl* (Meclizine Hcl*) 25 Mg Tablet, 12.5 MG PO DAILY Y for DIZZINESS, TAB 10/21/16 Docusate Sodium* (Docusate Sodium*) 100 Mg Capsule, 100 MG PO BID, #60 CAP 10/21/16 Ferrous Sulfate* (Ferrous Sulfate*) 325 Mg Tabec, 325 MG PO DAILY, TAB 10/21/16 Discontinued Reported Medications Valsartan-Hydrochlorothiazide (Valsartan-HCTZ) 320-12.5 Mg Tablet, 1 TAB PO DAILY, #30 TAB 10/21/16 Clopidogrel Bisulfate* (Clopidogrel Bisulfate*) 75 Mg Tablet, 75 MG PO DAILY, # 30 TAB 10/21/16 Carvedilol* (Carvedilol*) 6.25 Mg Tablet, 6.25 MG PO BID, #60 TAB 10/21/16 Follow-up Plan PCP and hospice care Primary Care Provider Care Physician No Primary Pending Labs Laboratory Tests Test 11/05/16 17:14 11/05/16 21:05 11/06/16 02:17 11/06/16 04:28 Bedside Glucose 187mg/dL (70-220) 188mg/dL (70-220) 182mg/dL (70-220) White Blood Count 9.810^3/ul (4.8-10.8) Red Blood Count 3.3310^6/ul (4.20-5.40) Hemoglobin 8.5g/dl (12.0-16.0) Hematocrit 27.5% (37.0-47.0) Mean Corpuscular Volume 82.6fl (82.0-101.0) Mean Corpuscular Hemoglobin 25.5pg (29.0-33.0) Mean Corpuscular Hemoglobin Concent 30.9g/dl (32.0-37.0) Red Cell Distribution Width 18.2% (11.5-14.5) Platelet Count 38281^3/UL (140-415) Mean Platelet Volume 11.4fl (7.4-10.4) Neutrophils % 64.3% (39.0-77.0) Lymphocytes % 24.2% (15.0-51.0) Monocytes % 6.9% (0.0-11.0) Eosinophils % 3.8% (0.0-7.0) Basophils % 0.3% (0.0-2.0) Nucleated Red Blood Cells % 0.0/100WBC (0.0-0.0) Neutrophils # 6.310^3/ul (1.6-7.5) Lymphocytes # 2.410^3/ul (0.8-2.9) Monocytes # 0.710^3/ul (0.3-0.9) Eosinophils # 0.410^3/ul (0.0-0.5) Basophils # 0.010^3/ul (0.0-0.1) Nucleated Red Blood Cells # 0.010^3/ul (0.0-0.0) Sodium Level 137mmol/L (135-144) Potassium Level 4.1mmol/L (3.5-5.1) Chloride Level 104mmol/L (97-110) Carbon Dioxide Level 31mmol/L (21-31) Anion Gap 6 (8-16) Blood Urea Nitrogen 31mg/dl (7-20) Creatinine 0.91mg/dl (0.44-1.00) Glucose Level 147mg/dl (70-220) Calcium Level 8.7mg/dl (8.4-10.2) Test 11/06/16 08:11 11/06/16 11:32 Bedside Glucose 127mg/dL (70-220) 203mg/dL (70-220) JEFFREY HAQ MD Nov 06, 2016 13:20
[2016-11-06 14:00] VITALS: BP 135/61; RESP 20
[2016-11-06] MEDS: ACETAMINOPHEN 650MG/20.3ML CUP PO PRN (15:22)
[2016-11-06 20:58] VITALS: BP 141/64; RESP 16
[2016-11-07] MEDS: ACCU-CHEK XX SCH (02:00)
[2016-11-07 02:53] VITALS: BP 140/63; RESP 16
[2016-11-07] MEDS: INSULIN ASPART [NOVOLOG] 3 ML PEN SC SCH ×2 (07:56→12:12)
[2016-11-07 08:00] VITALS: BP 146/66; RESP 18
[2016-11-07] MEDS: FAMOTIDINE 20 MG TAB PO SCH (08:07)
[2016-11-07] MEDS: SENNA/DOCUSATE NA (8.6MG/50MG) TAB PO SCH (08:07)
[2016-11-07] MEDS: FERROUS SULFATE 60 MG/ML 5ML CUP PO SCH (08:07)
[2016-11-07] MEDS: FENOFIBRATE 145 MG TAB PO SCH (08:07)
[2016-11-07] MEDS: AMLODIPINE 5 MG TAB PO SCH (08:08)
--- NOTE | 2016-11-07 16:46 | DS ---
Date/Time of Note Date/Time of Note DATE: 11/07/16 TIME: 16:44 Discharge Summary Admission/Discharge Info Admit Date/Time Oct 22, 2016 at 05:33 Discharge Date/Time Nov 07, 2016 at 14:51 Discharge Diagnosis 1. Acute intracranial hemorrhage: No need for surgical intervention per neurosurgery, stable 2. Altered mental status, dementia, stable 3. Right lower abdomen wound, stable 4. Hypertension.on coreg 5. Diabetes mellitus.on metformin and insulin 6. Dyslipidemia. on tricor 7. UTI on 10/27/2016, treated, off antibiotics Patient Condition: Stable Hospital Course This is an 86-year-old female with a history of hypertension, diabetes, dyslipidemia, dementia who was brought to the ER from home for altered mental status. Patient is severely demented, unable to give history. In the ER brain CT showed acute left globus pallidus intracranial hemorrhage with mild surrounding edema and old right basal ganglia lacunar infarct. Chest x-ray with right lung base pneumonia. Her initial BP was 141/70 with a heart rate of 85. Labs shows a WBC of 15,000, potassium 2.8, hemoglobin 10, BUN 35, creatinine 1.02, glucose 240. Repeated CT scan and MRI brain indicates the incracranial hemorrhage is stable. Neurosurgery consultation does not recommend surgery. Patient is clinically stable but severely demented. Family signs her up with hospice care. Patient is discharged home today with hospice care. Patient was discharged on 11/06/2016 but home hospice care was not ready. Patient has no condition change. She is discharged home today with home hospice care. Home Meds Active Scripts Carvedilol* (Carvedilol*) 12.5 Mg Tablet, 12.5 MG PO BID for 30 Days, TAB Prov:JEFFREY HAQ MD 11/06/16 Reported Medications Insulin Glargine* (Lantus*) 100 Unit/Ml Soln, 6 UNIT SC QHS, #1 VIAL 10/21/16 Linaclotide (LINZESS) 290 Mcg Capsule, 290 MCG PO DAILY Y for NEEDED, #30 CAP 10/21/16 Fenofibrate Nanocrystallized* (Fenofibrate*) 145 Mg Tablet, 145 MG PO DAILY, TAB 10/21/16 Insulin Aspart* (Novolog Insulin Pen*) 100 Unit/Ml Soln, 0 SC .SLIDING SCALE AC , EA 10/21/16 Metformin Hcl* (Metformin Hcl*) 1,000 Mg Tablet, 1000 MG PO WITH BREAKFAST DINNE , #60 TAB 10/21/16 Meclizine Hcl* (Meclizine Hcl*) 25 Mg Tablet, 12.5 MG PO DAILY Y for DIZZINESS, TAB 10/21/16 Docusate Sodium* (Docusate Sodium*) 100 Mg Capsule, 100 MG PO BID, #60 CAP 10/21/16 Ferrous Sulfate* (Ferrous Sulfate*) 325 Mg Tabec, 325 MG PO DAILY, TAB 10/21/16 Discontinued Reported Medications Valsartan-Hydrochlorothiazide (Valsartan-HCTZ) 320-12.5 Mg Tablet, 1 TAB PO DAILY, #30 TAB 10/21/16 Clopidogrel Bisulfate* (Clopidogrel Bisulfate*) 75 Mg Tablet, 75 MG PO DAILY, # 30 TAB 10/21/16 Carvedilol* (Carvedilol*) 6.25 Mg Tablet, 6.25 MG PO BID, #60 TAB 10/21/16 Follow-up Plan PCP and hospice care Primary Care Provider Care Physician No Primary Pending Labs Laboratory Tests Test 11/06/16 17:24 11/06/16 20:51 11/07/16 07:56 11/07/16 12:07 Bedside Glucose 135mg/dL (70-220) 156mg/dL (70-220) 110mg/dL (70-220) 161mg/dL (70-220) JEFFREY HAQ MD Nov 07, 2016 16:46
== END 2016-11-07 14:51 | disposition hospice, home (50) | DRG 64 ==
LOC: E/R 21:25 → ICU 10-22 05:33 → MS4 10-24 17:26 → ICU 10-26 20:35 → PP2 10-28 20:43
PROVIDERS: ADMIT Internal Medicine; ATTEND Internal Medicine
DX: I62.9 Nontraumatic intracranial hemorrhage, unspecified (principal); G93.49 Other encephalopathy; J18.9 Pneumonia, unspecified organism; N17.9 Acute kidney failure, unspecified; A41.9 Sepsis, unspecified organism; E87.0 Hyperosmolality and hypernatremia; E86.0 Dehydration; F03.90 Unspecified dementia, unspecified severity, without behavioral disturbance, psychotic disturbance, mood disturbance, and anxiety; N39.0 Urinary tract infection, site not specified; E11.65 Type 2 diabetes mellitus with hyperglycemia; E78.5 Hyperlipidemia, unspecified; E87.6 Hypokalemia; I16.0 Hypertensive urgency
CPT/HCPCS: 36430; 70450; 70551; 71010; 80048; 80053; 80061; 81001; 82270; 82962; 83036; 83605; 83735; 84443; 84484; 85025; 85610; 85730; 86644; 86850; 86900; 86901; 87040; 87081; 87086; 92523; 92526; 92610; 93005; 94664; 95819; 96374; 96375; 97110; 97161; 97530; J1940; A4310; J0360; J0692; J1815; J1956; J2060; J2543; J3370; J3480; J7030; P9035

== ENCOUNTER 2017-02-15 14:46 | Inpatient (IN) | payer MEDICARE, OTHER ==
[~2017-02-15] VITALS: Ht 152.4 cm; Wt 51.1 kg
[~2017-02-15 14:46] MED LIST: CARV12.579 PO; DOCU-159 PO; FENO145T19 PO; FER325 PO; LANT3I SC; LINA290C PO; MECL-77 PO; METF1000 PO; NOVO3I SC
[2017-02-15] MEDS ORDERED: VALS80TA2 PO (15:12)
[2017-02-15] MEDS ORDERED: CARV6.2579 PO (15:13)
[2017-02-15] MEDS ORDERED: TRIA15CR55 TOP (15:13)
[2017-02-15] MEDS ORDERED: SULF-182 PO (15:15)
[2017-02-15] MEDS ORDERED: SOD CHLORIDE 0.9% 1,000 ML IV STA (15:16)
[2017-02-15 15:53] LABS: BASOPHILS % 0.2 % (0.0-2.0); EOSINOPHILS # 0.1 10^3/ul (0.0-0.5); EOSINOPHILS % 0.5 % (0.0-7.0); HEMATOCRIT 30.4 % (37.0-47.0); HEMOGLOBIN 9.7 g/dl (12.0-16.0); LYMPHOCYTES # 1.8 10^3/ul (0.8-2.9); LYMPHOCYTES % 14.5 % (15.0-51.0); MEAN CORPUSCULAR HEMOGLOBIN 26.4 pg (29.0-33.0); MEAN CORPUSCULAR HGB CONC 31.9 g/dl (32.0-37.0); MEAN CORPUSCULAR VOLUME 82.6 fl (82.0-101.0); MEAN PLATELET VOLUME 11.3 fl (7.4-10.4); MONOCYTE # 0.8 10^3/ul (0.3-0.9); MONOCYTES % 6.1 % (0.0-11.0); NEUTROPHIL # 9.6 10^3/ul (1.6-7.5); NEUTROPHILS % 78.3 % (39.0-77.0); PLATELET COUNT 384 10^3/UL (140-415); RED BLOOD COUNT 3.68 10^6/ul (4.20-5.40); RED CELL DISTRIBUTION WIDTH 18.5 % (11.5-14.5); WHITE BLOOD COUNT 12.3 10^3/ul (4.8-10.8)
[2017-02-15 16:16] LABS: INR 1.2; PARTIAL THROMBOPLASTIN TIME 22.5 Sec (25.0-35.0); PROTIME 15.4 Sec (11.9-14.9); PT RATIO 1.2
[2017-02-15 16:22] LABS: ADD UMIC YES; UR ASCORBIC ACID NEGATIVE (NEGATIVE); UR BILIRUBIN (Dip) NEGATIVE (NEGATIVE); UR BLOOD (Dip) 1+ mg/dL (NEGATIVE); UR CLARITY SLIGHTLY CLOUDY (CLEAR); UR COLOR YELLOW (YELLOW); UR GLUCOSE (Dip) NEGATIVE (NEGATIVE); UR KETONES (Dip) NEGATIVE (NEGATIVE); UR LEUKOCYTE ESTERASE (Dip) NEGATIVE Leu/ul (NEGATIVE); UR NITRITE (Dip) NEGATIVE (NEGATIVE); UR RBC 0 /HPF (0-5); UR SPECIFIC GRAVITY (Dip) 1.011 (1.003-1.030); UR TOTAL PROTEIN (Dip) 2+ mg/dl (NEGATIVE); UR UROBILINOGEN (Dip) NEGATIVE (NEGATIVE)
--- NOTE | 2017-02-15 17:02 | RADRPT ---
PROCEDURE: CT Brain without contrast. CLINICAL INDICATION: Altered mental status. TECHNIQUE: A CT of the brain without contrast was performed utilizing axial sections from the skul l base through the vertex. The patient was scanned without intravenous contrast enhancement. [place] l and coronal reformatted images were obtained using the data from the axial images. Total exam DLP is 720.23 mGy-cm. CTDIvol is 43.58 mGy. One or more of the following dose reduction techniques were used: Automated exposure control, adjustment of the mA and/or kV according to patient size, use of iterative reconstruction technique. DICOM images are available. COMPARISON: CT scan of the brain dated 10/26/2016 FINDINGS: There is normal shin-white matter differentiation. There is enlargement of the ventricles and subarachnoid spaces consistent with atrophy. There is decreased attenuation of the periventricular white matter consistent with microangiopathic ischemic change. There is no intracranial hemorrhage or space-occupying lesion. Previously noted left basal ganglia p arenchymal hemorrhage is no longer present. There are vascular calcifications consistent with atherosclerosis. There is no skull fracture or lytic lesion. IMPRESSION: 1. Atrophy. 2. Microangiopathic ischemic change. 3. Atherosclerosis. 4. Previously noted left basal ganglia hemorrhage is no longer present. 5. No new intracranial hemorrhage. 6. Otherwise unremarkable noncontrast CT scan of the brain. RPTAT: QQ .Rafael Ruiz MD, Date Time Electronically viewed and signed by .Rafael Ruiz MD, on 02/15/2017 17:02 .R/
--- NOTE | 2017-02-15 17:10 | RADRPT ---
PROCEDURE: XR Chest. CLINICAL INDICATION: Altered Mental Status TECHNIQUE: Single frontal view of the chest was obtained. COMPARISON: 10/30/2016 FINDINGS: The cardiomediastinal silhouette is mild to moderately enlarged. There is prominent aortic calcifica tion. There is bilateral mid and lower lung increased interstitial markings. There is possible retro cardiac atelectasis. There are old bilateral rib deformities. There is bony demineralization. No signs of pleural fluid or pneumothorax are seen. IMPRESSION: 1. Mild to moderate cardiomegaly. 2. Prominent aortic calcification. 3. Increased interstitial markings likely reflecting chronic interstitial change, or prior edema. N o definite consolidation. Possible retrocardiac atelectasis. RPTAT: PP .Arnold Avila MD, Date Time Electronically viewed and signed by .Arnold Avila MD, on 02/15/2017 17:09 .T/
[2017-02-15 17:41] LABS: ALANINE AMINOTRANSFERASE 39 IU/L (13-69); ALBUMIN 2.3 g/dl (3.3-4.9); ALBUMIN/GLOBULIN RATIO 0.74; ALKALINE PHOSPHATASE 35 IU/L (42-121); ANION GAP 16 (8-16); ASPARTATE AMINO TRANSFERASE 35 IU/L (15-46); BILIRUBIN,INDIRECT 0.1 mg/dl (0-1.1); BILIRUBIN,TOTAL 0.1 mg/dl (0.2-1.3); BLOOD UREA NITROGEN 67 mg/dl (7-20); CALCIUM 8.7 mg/dl (8.4-10.2); CARBON DIOXIDE 16 mmol/L (21-31); CHLORIDE 118 mmol/L (97-110); GLUCOSE 64 mg/dl (70-220); SODIUM 143 mmol/L (135-144); TOTAL PROTEIN 5.4 g/dl (6.1-8.1)
[2017-02-15 17:51] LABS: POTASSIUM 7.1 mmol/L (3.5-5.1)
[2017-02-15 17:54] LABS: TROPONIN-I < 0.012 ng/ml (0.00-0.12)
[2017-02-15 17:58] LABS: T3 UPTAKE 47.7 % (23.5-40.5)
[2017-02-15] MEDS ORDERED: NA BICARBONATE 8.4% 50 ML SYG IV ONE (19:30)
[2017-02-15] MEDS ORDERED: DEXTROSE 50% 50 ML SYRINGE IV PRN ×2 (19:30)
[2017-02-15] MEDS ORDERED: GLUCOSE GEL 15 GRAM TUBE BUCCAL PRN (19:30)
[2017-02-15] MEDS ORDERED: INSULIN REGULAR, HUMAN 100 UNIT/1 ML 3ML VIAL IV ONE (19:30)
[2017-02-15] MEDS ORDERED: GLUCAGON 1 MG INJ IM PRN (19:30)
[2017-02-15] MEDS ORDERED: GLUCOSE GEL 15 GRAM TUBE PO PRN ×2 (19:30)
[2017-02-15] MEDS ORDERED: CALCIUM GLUCONATE 10% 1 GM in DEXTROSE 5% 100 ML IVPB ONE (19:30)
[2017-02-15] MEDS ORDERED: DEXTROSE 50% 50 ML SYRINGE IV ONE (20:00)
[2017-02-15] MEDS ORDERED: ACETAMINOPHEN 325 MG TAB PO PRN (20:00)
[2017-02-15] MEDS ORDERED: ONDANSETRON 4 MG INJ IV PRN (20:00)
--- NOTE | 2017-02-15 21:19 | RADRPT ---
PROCEDURE: Retroperitoneal US. CLINICAL INDICATION: Renal insufficiency TECHNIQUE: Multiple sonographic images of the kidneys and retroperitoneum were obtained. The imag es were reviewed on a PACS workstation. COMPARISON: No prior studies are available for comparison. FINDINGS: The kidneys are normal in size, contour, cortical thickness and cortical echogenicity. The right kidney measures 8.6 cm. The left kidney measures 9.5 cm. There is an 11 mm simple cyst in the right kidney. No kidney stones are visualized. There is no evidence for hydronephrosis. The urinary bladder is normal. RPTAT: AA IMPRESSION: Unremarkable retroperitoneal ultrasound. .Maldonado Catalan MD, MD Date Time Electronically viewed and signed by .Maldonado Catalan MD, MD on 02/15/2017 21:19 .S/
[2017-02-15 21:43] VITALS: TEMP 98.6
[2017-02-15 22:26] VITALS: PULSE 87
--- NOTE | 2017-02-15 22:37 | ERD ---
ER Documentation Chief Complaint Chief Complaint reports pt is not responsive and is not eating and unable to take meds HPI 87-year-old female is brought in for being less alert than usual and not wanting to take p.o. this morning including medications. She has had no fevers or chills recently. She is taking care of by her daughter who also runs in convalescent home that she cares for her mother at. Mother is somewhat altered at baseline but this is concerning change. Patient herself was not able to provide history other than his stated she does not have any pain and denies all questions about symptoms. ROS Unreliable secondary to altered mental status. Medications Home Meds Reported Medications Sulfamethoxazole/Trimethoprim (Sulfamethoxazole-Tmp Ds Tablet) 1 Each Tablet, 1 EACH PO BID for 10 Days, #20 TAB FOR 10 DAYS,START DATE 02/07/17 02/15/17 Triamcinolone Acetonide* (Kenalog*) 0.1%-15GM Cr, 1 APPLIC TOP BID, #1 TUB 02/15/17 Carvedilol* (Carvedilol*) 6.25 Mg Tablet, 6.25 MG PO DAILY, #60 TAB HOLD IF SBP<100 02/15/17 Valsartan* (Diovan*) 80 Mg Tablet, 80 MG PO DAILY, TAB HOLD IF SBP<100 02/15/17 Fenofibrate Nanocrystallized* (Fenofibrate*) 145 Mg Tablet, 145 MG PO DAILY, TAB 10/21/16 Metformin Hcl* (Metformin Hcl*) 1,000 Mg Tablet, 1000 MG PO WITH BREAKFAST , # 60 TAB 10/21/16 Ferrous Sulfate* (Ferrous Sulfate*) 325 Mg Tabec, 325 MG PO DAILY, TAB 10/21/16 Discontinued Reported Medications Insulin Glargine* (Lantus*) 100 Unit/Ml Soln, 6 UNIT SC QHS, #1 VIAL 10/21/16 Linaclotide (LINZESS) 290 Mcg Capsule, 290 MCG PO DAILY Y for NEEDED, #30 CAP 10/21/16 Insulin Aspart* (Novolog Insulin Pen*) 100 Unit/Ml Soln, 0 SC .SLIDING SCALE AC , EA 10/21/16 Meclizine Hcl* (Meclizine Hcl*) 25 Mg Tablet, 12.5 MG PO DAILY Y for DIZZINESS, TAB 10/21/16 Docusate Sodium* (Docusate Sodium*) 100 Mg Capsule, 100 MG PO BID, #60 CAP 10/21/16 Discontinued Scripts Carvedilol* (Carvedilol*) 12.5 Mg Tablet, 12.5 MG PO BID for 30 Days, TAB Prov:JEFFREY HAQ MD 11/06/16 Allergies Allergies: Coded Allergies: No Known Allergy (Unverified , 02/15/17) PMhx/Soc History of Surgery: Yes (Appendectomy) Anesthesia Reaction: No Hx Neurological Disorder: Yes (dementia, now with brain hemorrage and AMS) Hx Respiratory Disorders: Yes (new pneumonia) Hx Cardiac Disorders: Yes (HTN) Hx Psychiatric Problems: No Hx Miscellaneous Medical Probl: Yes (DM) Hx Alcohol Use: No Hx Substance Use: No Hx Tobacco Use: No Smoking Status: Never smoker Physical Exam Vitals Vital Signs Date Time Temp Pulse Resp B/P Pulse Ox O2 Delivery O2 Flow Rate FiO2 02/15/17 21:43 98.6 88 18 100/43 98 Room Air 02/15/17 18:19 78 18 113/49 96 Room Air 02/15/17 15:00 98.3 76 18 119/40 100 Physical Exam Const: [] No distress Head: Atraumatic Eyes: Normal Conjunctiva ENT: Normal External Ears, Nose and Mouth. Neck: Full range of motion..~ No meningismus. Resp: Clear to auscultation bilaterally Cardio: Regular rate and rhythm, no murmurs Abd: Soft, non tender, non distended. Normal bowel sounds Skin: No petechiae or rashes Back: No midline or flank tenderness Ext: No cyanosis, mild bilateral pedal edema with pulses intact all 4 extremities Neur: Awake and alert oriented 1, no focal deficits, moves all 4 extremities with good strength and equal extremities. Psych: Normal Mood and Affect Result Diagram: 02/15/17 1530 02/15/17 1700 Results 24 hrs Laboratory Tests Test 02/15/17 15:20 02/15/17 15:30 02/15/17 15:53 02/15/17 17:00 Urine Color YELLOW Urine Clarity SLIGHTLY CLOUDY Urine pH 6.0 Urine Specific [place] 1.011 Urine Ketones NEGATIVEmg/dL Urine Nitrite NEGATIVEmg/dL Urine Bilirubin NEGATIVEmg/dL Urine Urobilinogen NEGATIVEmg/dL Urine Leukocyte Esterase NEGATIVELeu/ul Urine Microscopic RBC 0/HPF Urine Microscopic WBC 4/HPF Urine Hemoglobin 1+mg/dL Urine Glucose NEGATIVEmg/dL Urine Total Protein 2+mg/dl White Blood Count 12.310^3/ul Red Blood Count 3.6810^6/ul Hemoglobin 9.7g/dl Hematocrit 30.4% Mean Corpuscular Volume 82.6fl Mean Corpuscular Hemoglobin 26.4pg Mean Corpuscular Hemoglobin Concent 31.9g/dl Red Cell Distribution Width 18.5% Platelet Count 81169^3/UL Mean Platelet Volume 11.3fl Neutrophils % 78.3% Lymphocytes % 14.5% Monocytes % 6.1% Eosinophils % 0.5% Basophils % 0.2% Nucleated Red Blood Cells % 0.0/100WBC Neutrophils # 9.610^3/ul Lymphocytes # 1.810^3/ul Monocytes # 0.810^3/ul Eosinophils # 0.110^3/ul Basophils # 0.010^3/ul Nucleated Red Blood Cells # 0.010^3/ul Prothrombin Time 15.4Sec Prothrombin Time Ratio 1.2 INR International Normalized Ratio 1.20 Activated Partial Thromboplast Time 22.5Sec Lactic Acid Level 2.8mmol/L Thyroid Stimulating Hormone (TSH) 3.220MIU/L Sodium Level 143mmol/L Potassium Level 7.1mmol/L Chloride Level 118mmol/L Carbon Dioxide Level 16mmol/L Anion Gap 16 Blood Urea Nitrogen 67mg/dl Creatinine 2.80mg/dl Glucose Level 64mg/dl Calcium Level 8.7mg/dl Total Bilirubin 0.1mg/dl Direct Bilirubin 0.00mg/dl Indirect Bilirubin 0.1mg/dl Aspartate Amino Transf (AST/SGOT) 35IU/L Alanine Aminotransferase (ALT/SGPT) 39IU/L Alkaline Phosphatase 35IU/L Troponin I < 0.012ng/ml Total Protein 5.4g/dl Albumin 2.3g/dl Globulin 3.10g/dl Albumin/Globulin Ratio 0.74 Free Thyroxine Index 1.62ug/ml Thyroxine (T4) 3.4ug/dl Triiodothyronine (T3) Uptake 47.7% Test 02/15/17 19:43 02/15/17 20:43 Bedside Glucose 76mg/dL 198mg/dL Current Medications Medications (Trade) Dose Ordered Sig/Lilliam Route PRN Reason Start Time Stop Time Status Last Admin Dose Admin Sodium Chloride (NS) 1,000 ml @ 1,000 mls/hr Q1H STAT IV 02/15/17 15:16 02/15/17 16:15 DC 02/15/17 15:38 Sodium Bicarbonate 50 ml 50 ml ONCE ONCE IV 02/15/17 19:30 02/15/17 19:31 DC 02/15/17 19:16 Calcium Gluconate/ Dextrose (Ca Gluc/D5W) 110 ml @ 110 mls/hr ONCE ONCE IVPB 02/15/17 19:30 02/15/17 20:29 DC 02/15/17 19:38 Insulin Human Regular (Humulin R) 10 unit ONCE ONCE IV 02/15/17 19:30 02/15/17 19:31 DC 02/15/17 20:00 Miscellaneous Information 1 ea NOTE XX 02/15/17 19:30 Glucose (Glutose) 15 gm Q15M PRN PO DECREASED GLUCOSE 02/15/17 19:30 Glucose (Glutose) 22.5 gm Q15M PRN PO DECREASED GLUCOSE 02/15/17 19:30 Dextrose (D50w Syringe) 25 ml Q15M PRN IV DECREASED GLUCOSE 02/15/17 19:30 Dextrose (D50w Syringe) 50 ml Q15M PRN IV DECREASED GLUCOSE 02/15/17 19:30 02/15/17 19:57 Glucagon (Glucagen) 1 mg Q15M PRN IM DECREASED GLUCOSE 02/15/17 19:30 Glucose (Glutose) 15 gm Q15M PRN BUCCAL DECREASED GLUCOSE 02/15/17 19:30 Dextrose (D50w Syringe) 50 ml ONCE ONCE IV 02/15/17 20:00 02/15/17 20:35 DC Ondansetron HCl (Zofran Inj) 4 mg ER BRIDGE PRN IV NAUSEA AND/OR VOMITING 02/15/17 20:00 02/16/17 19:59 Acetaminophen (Tylenol Tab) 650 mg ER BRIDGE PRN PO MILD PAIN/FEVER 02/15/17 20:00 02/16/17 19:59 Procedures/MDM Acute kidney injury with severe hyperkalemia. Severe dehydration. No evidence of acute infection. She is given IV sodium bicarbonate, IV insulin, dextrose lowering of the sugar. Is also given Kayexalate. Treated with copious IV fluid. Altered mental status may have been secondary to dehydration and she appeared to become more alert with IV hydration. I spoke with Dr. Taylor, wood patternmaker about her condition and the need for possible urgent dialysis. He is going to follow the patient. She is being admitted to Dr. Banegas. The telemetry unit for close monitoring. No EKG changes of hyperkalemia. Was also given calcium gluconate. Mildly decrease sugar initially was elevated after glucose. No signs of cardiac ischemia. EKG interpretation: Normal sinus rhythm rate of 78, normal axis, no ST or T- wave changes concerning for acute ischemia. Normal intervals. potline monitor interpretation: Normal sinus rhythm without arrhythmia Chest x-ray interpretation: See no acute process. I see no pneumothorax, no pulmonary edema, no infiltrates, no fractures. CT head interpretation: I see no acute process. I see no hemorrhage, no mass- effect, midline shift, no skull fracture. Renal ultrasound interpretation: Unremarkable kidneys. I see no hydronephrosis or atrophy. Departure Diagnosis: Primary Impression: Acute kidney injury Additional Impressions: Severe dehydration Hyperkalemia Metabolic encephalopathy Leukocytosis, unspecified Condition: Serious FADINURIAMIGDALIA DO Feb 15, 2017 22:23
[2017-02-15 22:43] VITALS: BP 92/40; PULSE 82; RESP 15
[2017-02-15 22:45] VITALS: Ht 152.4 cm; Wt 51.1 kg
[2017-02-15] MEDS ORDERED: SOD CHLORIDE 0.9% 1,000 ML IV SCH (23:00)
[2017-02-15] MEDS ORDERED: NA POLYST SULFON 15 GM/60 ML BTL PR ONE (23:00)
[2017-02-15] MEDS ORDERED: ALBUMIN HUMAN 25% 100 ML IV ONE (23:00)
[2017-02-15] MEDS ORDERED: NA POLYST SULFON 15 GM/60 ML BTL PO ONE (23:00)
[2017-02-15] MEDS ORDERED: PENDING SANTYL ORDER FOR WOUND CARE XX PRN (23:00)
[2017-02-15] MEDS ORDERED: NA POLYST SULFON 15 GM/60 ML BTL ONE (23:10)
[2017-02-15] MEDS: ALBUTEROL 0.083% (NEB) 2.5 MG/3 ML AMP HHN SCH (23:28)
[2017-02-16] VITALS (11 sets, daily range): BP systolic 88–107; BP diastolic 44–57; PULSE 80–95; RESP 17–20
[2017-02-16] MEDS ORDERED: ALBUTEROL HFA 8 GM INHALER INH SCH (01:00)
[2017-02-16] MEDS ORDERED: COLLAGENASE 30 GM TUBE TOP PRN (01:00)
[2017-02-16] MEDS: ALBUTEROL 0.083% (NEB) 2.5 MG/3 ML AMP HHN SCH ×2 (01:23→05:02)
[2017-02-16 02:18] LABS: CALCIUM 8.7 mg/dl (8.4-10.2); CREATININE 2.76 mg/dl (0.44-1.00)
[2017-02-16] MEDS ORDERED: NA POLYST SULFON 15 GM/60 ML BTL PO ONE (02:30)
[2017-02-16 02:37] LABS: POTASSIUM 6.2 mmol/L (3.5-5.1)
[2017-02-16] MEDS ORDERED: DEXTROSE 5%-0.45% NACL 1,000 ML IV SCH (03:00)
[2017-02-16] MEDS ORDERED: NA POLYST SULFON 15 GM/60 ML BTL PR ONE ×2 (03:00→10:30)
--- NOTE | 2017-02-16 06:46 | HP ---
Date/Time of Note Date/Time of Note DATE: 02/16/17 TIME: 06:40 Assessment/Plan VTE Prophylaxis VTE Prophylaxis Intervention: SCD's Lines/Catheters IV [facility]from [facility] Mid Line Urinary Cath still in place: Yes Assessment/Plan Assessment/Plan 1. Acute renal insufficiency -Likely secondary to prerenal etiology as a result of decreased p.o. intake/ dehydration -IV fluid -Correct hyperkalemia -Check urine electrolytes -Renal ultrasound was unremarkable -Nephrology consult has been placed with Dr. Taylor 2. Hyperkalemia -See #1 3. Dementia -Continue supportive care 4. Recently diagnosed intracranial hemorrhage -Head CT now shows resolution 5. Insulin-dependent diabetes -Continue insulin with adjustment as needed HPI/ROS Admit Date/Time Admit Date/Time Feb 15, 2017 at 20:01 Hx of Present Illness This is an 87-year-old female with a history of dementia, intracranial hemorrhage, hypertension, insulin-dependent diabetes, dyslipidemia. Patient was brought to the ER from a convalescent home for worsening mentation, decreased p.o. intake as well as refusing to take oral medications. Patient is not able to provide history and as such information was gathered from chart review and from the ER physician. Patient was admitted here in October of this year for acute intracranial hemorrhage which was managed conservatively. When patient presented to the ER, she was found to have acute renal insufficiency with a creatinine of 2.8 and a potassium of 7.1. Her bicarb was 15, lactic acid 2.7. Vitals were stable. Head CT with no acute findings. Chest x-ray shows a chronic interstitial change otherwise no acute findings. Renal ultrasound is unremarkable. PMH/Family/Social Social History Smoking Status: Never smoker Exam/Review of Systems Vital Signs Vitals Vital Signs Date Time Temp Pulse Resp B/P Pulse Ox O2 Delivery O2 Flow Rate FiO2 02/16/17 05:02 85 18 96 Nasal Cannula 3.0 02/16/17 03:27 97.8 100/48 Intake and Output 02/15/17 02/15/17 02/16/17 15:00 23:00 07:00 Intake Total 930 ml Balance 930 ml Exam Constitutional: other (Not oriented. No acute distress) Head: atraumatic, normocephalic Respiratory: diminished breath sounds Cardiovascular: nl pulses, regular rate and rhythm Gastrointestinal: soft Extremities: normal pulses Labs Result Diagram: 02/15/17 1530 02/16/17 0115 Medications Medications Current Medications Miscellaneous Information 1 ea NOTE XX ; Start 02/15/17 at 19:30 Glucose (Glutose) 15 gm Q15M PRN PO DECREASED GLUCOSE; Start 02/15/17 at 19:30 Glucose (Glutose) 22.5 gm Q15M PRN PO DECREASED GLUCOSE; Start 02/15/17 at 19: 30 Dextrose (D50w Syringe) 25 ml Q15M PRN IV DECREASED GLUCOSE Last administered on 02/15/17 23:52; Admin Dose 25 ML; Start 02/15/17 at 19:30 Dextrose (D50w Syringe) 50 ml Q15M PRN IV DECREASED GLUCOSE Last administered on 02/15/17 19:57; Admin Dose 50 ML; Start 02/15/17 at 19:30 Glucagon (Glucagen) 1 mg Q15M PRN IM DECREASED GLUCOSE; Start 02/15/17 at 19: 30 Glucose (Glutose) 15 gm Q15M PRN BUCCAL DECREASED GLUCOSE; Start 02/15/17 at 19:30 Miscellaneous Information (Pending Santyl Order For Wound Care) This patient [place]... PRN PRN XX WOUND CARE; Start 02/15/17 at 23:00 Collagenase (Santyl) 1 applic PRN PRN TOP PRN; Start 02/16/17 at 01:00 Collagenase 1 applic 1 applic Q12 TOP ; Start 02/16/17 at 09:00 Dextrose/Sodium Chloride (D5-1/2ns) 1,000 ml @ 100 mls/hr Q10H IV Last administered on 02/16/17 03:09; Admin Dose 100 MLS/HR; Start 02/16/17 at 03: 00 JELANI HEBERT MD Feb 16, 2017 06:46
[2017-02-16] MEDS ORDERED: COLLAGENASE 30 GM TUBE TOP SCH (09:00)
[2017-02-16 09:05] LABS: HAAIG REFLEX REFLEX FILED
[2017-02-16 09:38] LABS: ALANINE AMINOTRANSFERASE 29 IU/L (13-69); ALBUMIN 2.6 g/dl (3.3-4.9); ALBUMIN/GLOBULIN RATIO 0.92; ALKALINE PHOSPHATASE 32 IU/L (42-121); ANION GAP 21 (8-16); ASPARTATE AMINO TRANSFERASE 28 IU/L (15-46); BILIRUBIN,INDIRECT 0.1 mg/dl (0-1.1); BILIRUBIN,TOTAL 0.1 mg/dl (0.2-1.3); BLOOD UREA NITROGEN 65 mg/dl (7-20); CARBON DIOXIDE 16 mmol/L (21-31); CHLORIDE 117 mmol/L (97-110); CREATININE 2.95 mg/dl (0.44-1.00); GLUCOSE 123 mg/dl (70-220); PHOSPHORUS 3.4 mg/dl (2.5-4.9); POTASSIUM 5.7 mmol/L (3.5-5.1); SODIUM 148 mmol/L (135-144); TOTAL PROTEIN 5.4 g/dl (6.1-8.1)
[2017-02-16] MEDS: COLLAGENASE 30 GM TUBE TOP SCH ×2 (09:48→21:00)
[2017-02-16 10:21] LABS: HEPATITIS B CORE ANTIBODY NEGATIVE (NEGATIVE)
[2017-02-16] MEDS: NA BICARBONATE 650 MG TAB PO SCH (13:00)
--- NOTE | 2017-02-16 16:37 | CONS ---
Date/Time of Note Date/Time of Note DATE: 02/16/17 TIME: 16:35 Assessment/Plan Assessment/Plan Chief Complaint/Hosp Course BEL HYPERKALEMIA DRUG INDUCED BEL DECUBITUS HX UTI POSS DIABETIC NEPH METABOLIC ACIDOSIS PLAN DC BACTRIM AND DIOVN KAYEXALATE Problems: Consultation Date/Type/Reason Admit Date/Time Feb 15, 2017 at 20:01 Initial Consult Date Type of Consultation: renal [id number] consult 24 HR Interval Summary Constitutional: other (no distress) Exam/Review of Systems Vital Signs Vitals Vital Signs Date Time Temp Pulse Resp B/P Pulse Ox O2 Delivery O2 Flow Rate FiO2 02/16/17 16:31 86 02/16/17 15:53 98.4 20 107/57 91 02/16/17 05:02 Nasal Cannula 3.0 Intake and Output 02/15/17 02/15/17 02/16/17 15:00 23:00 07:00 Intake Total 1230 ml Balance 1230 ml Exam Neck: supple Respiratory: clear to auscultation Cardiovascular: regular rate and rhythm Gastrointestinal: soft Genitourinary - Female: nl adnexae Extremities: normal pulses Results Result Diagram: 02/15/17 1530 02/16/17 0808 Results 24 hrs Laboratory Tests Test 02/15/17 17:00 02/15/17 19:43 02/15/17 20:43 02/15/17 23:45 Sodium Level 143 Potassium Level 7.1 *H Chloride Level 118 H Carbon Dioxide Level 16 L Anion Gap 16 Blood Urea Nitrogen 67 H Creatinine 2.80 H Glucose Level 64 L Calcium Level 8.7 Total Bilirubin 0.1 L Direct Bilirubin 0.00 Indirect Bilirubin 0.1 Aspartate Amino Transf (AST/SGOT) 35 Alanine Aminotransferase (ALT/SGPT) 39 Alkaline Phosphatase 35 L Troponin I < 0.012 Total Protein 5.4 L Albumin 2.3 L Globulin 3.10 Albumin/Globulin Ratio 0.74 Free Thyroxine Index 1.62 Thyroxine (T4) 3.4 L Triiodothyronine (T3) Uptake 47.7 H Bedside Glucose 76 198 54 L Test 02/16/17 00:15 02/16/17 00:30 02/16/17 01:15 02/16/17 08:08 Bedside Glucose 98 126 Sodium Level 147 H 148 H Potassium Level 6.2 *H 5.7 H Chloride Level 118 H 117 H Carbon Dioxide Level 15 L 16 L Anion Gap 20 H 21 H Blood Urea Nitrogen 66 H 65 H Creatinine 2.76 H 2.95 H Glucose Level 102 123 Calcium Level 8.7 9.0 Phosphorus Level 3.4 Total Bilirubin 0.1 L Direct Bilirubin 0.00 Indirect Bilirubin 0.1 Aspartate Amino Transf (AST/SGOT) 28 Alanine Aminotransferase (ALT/SGPT) 29 Alkaline Phosphatase 32 L Total Protein 5.4 L Albumin 2.6 L Globulin 2.80 Albumin/Globulin Ratio 0.92 Parathyroid Hormone (Intact) Hepatitis B Surface Antigen NEGATIVE Hepatitis B Core Total Antibody NEGATIVE Hepatitis C Antibody NEGATIVE Medications Medications Current Medications Miscellaneous Information 1 ea NOTE XX ; Start 02/15/17 at 19:30 Glucose (Glutose) 15 gm Q15M PRN PO DECREASED GLUCOSE; Start 02/15/17 at 19:30 Glucose (Glutose) 22.5 gm Q15M PRN PO DECREASED GLUCOSE; Start 02/15/17 at 19: 30 Dextrose (D50w Syringe) 25 ml Q15M PRN IV DECREASED GLUCOSE Last administered on 02/15/17 23:52; Admin Dose 25 ML; Start 02/15/17 at 19:30 Dextrose (D50w Syringe) 50 ml Q15M PRN IV DECREASED GLUCOSE Last administered on 02/15/17 19:57; Admin Dose 50 ML; Start 02/15/17 at 19:30 Glucagon (Glucagen) 1 mg Q15M PRN IM DECREASED GLUCOSE; Start 02/15/17 at 19: 30 Glucose (Glutose) 15 gm Q15M PRN BUCCAL DECREASED GLUCOSE; Start 02/15/17 at 19:30 Miscellaneous Information (Pending Santyl Order For Wound Care) This patient [place]... PRN PRN XX WOUND CARE; Start 02/15/17 at 23:00 Collagenase (Santyl) 1 applic PRN PRN TOP PRN; Start 02/16/17 at 01:00 Collagenase (Santyl) 1 applic Q12 TOP Last administered on 02/16/17 09:48; Admin Dose 1 APPLIC; Start 02/16/17 at 09:00 Sodium Bicarbonate (Sodium Bicarbonate Tab) 650 mg TID PO ; Start 02/16/17 at 13:00 JUAN R DEL RIO MD Feb 16, 2017 16:37
[2017-02-16] MEDS ORDERED: SOD CHLORIDE 0.9% 1,000 ML IV SCH (17:00)
--- NOTE | 2017-02-16 18:27 | RADRPT ---
PROCEDURE: XR Chest. CLINICAL INDICATION: Check nasogastric tube position. TECHNIQUE: Single frontal view. COMPARISON: February 15, 2017. FINDINGS: There is a nasogastric tube coiled in the esophagus superiorly. This should be completely removed an d replaced. There is mild interstitial disease at the lung bases, unchanged. The lungs are otherwise clear. The heart is enlarged. There is calcification in the aorta consistent with atherosclerosis. There is no pleural effusion or pneumothorax. IMPRESSION: 1. The nasogastric tube is coiled in the proximal esophagus. This should be removed and replaced. 2. No other change from the February 15, 2017 chest radiograph. RPTAT: QQ .Rafael Ruiz MD, MD Date Time Electronically viewed and signed by .Rafael Ruiz MD, MD on 02/16/2017 18:26 .R/
[2017-02-16 19:38] LABS: PROTEIN/CREAT RATIO 3.12 RATIO
--- NOTE | 2017-02-16 22:00 | CONS ---
DATE OF ADMISSION: 02/15/2017 DATE OF CONSULTATION: TYPE OF CONSULTATION: Nephrology Thank you Dr. Banegas for kindly asking me to see this patient in nephrology consultation. HISTORY OF PRESENT ILLNESS: The patient is an elderly female who is unable to give any detailed his tory. The patient previously was discharged from this hospital with the diagnosis of acute intracra nial hemorrhage, no need for surgical intervention in the past, altered mental status. The patient has dementia, a right lower abdominal wound, hypertension, diabetes mellitus on metformin and insuli n, dyslipidemia. The patient is status post UTI, off antibiotic, was on Bactrim. The patient previ ously was discharged with hematocrit 27.5 and patient's laboratory data, BUN 31, creatinine 1.9. Th e patient now presents with electrolyte imbalance and is being seen for further management. 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 ALLERGY HISTORY: NEGATIVE. FAMILY HISTORY: Cannot be obtained. SOCIAL HISTORY: Cannot be obtained. MEDICATION HISTORY: The patient is on: 1. Coreg. 2. Fenofibrate. 3. Iron sulfate. 4. Metformin. 5. Sulfamethoxazole. 6. Diovan. 7. Triamcinolone. CURRENT MEDICATION: The patient is on: 1. Calcium gluconate status post albumin. 2. Fentanyl. 3. Kayexalate. 4. Sodium bicarbonate tablet. REVIEW OF SYSTEMS: Cannot be obtained. PHYSICAL EXAMINATION: GENERAL: The patient is awake, alert, not in any acute respiratory distress. VITAL SIGNS: Pulse 88, blood pressure 107/57. HEENT: Head is atraumatic, normocephalic. The patient is uncooperative on eye examination. NECK: Supple. LUNGS: Clear. CARDIOVASCULAR: S1, S2 normal. ABDOMEN: Soft, distended, nontender. Bowel sounds present. No palpable mass. EXTREMITIES: The patient has a skin lesion noted on the feet area. CENTRAL NERVOUS SYSTEM: The patient is in a little contracted state LABORATORY DATA: WBC 12.3, hematocrit 39.4, platelet count of 324. The patient's potassium earlier was 7.1, CO2 of 16, lactic acid 2.8. Repeat one, BUN 55, creatinine 2.95, CO2 of 15, potassium 5.7 at 8:00 Urinalysis is negative. IMPRESSION: 1. Acute kidney injury. 2. Underlying prerenal azotemia. 3. The patient has a drug-induced acute kidney injury, possibly Bactrim and Diovan. The patient middleton s hyperkalemia worsened by her Diovan and also Bactrim. 4. Rule out interstitial nephritis. 5. Rule out diabetic nephropathy underlying. 6. The patient has bedsores. 7. Metabolic acidosis.87. Anemia. 8. Hypoalbuminemia. PLAN: At this point is to obtain a UA, urine sodium and creatinine, eosinophils. The patient had a ____. Continue her Kayexalate and gentle IV fluids. The patient's electrolytes will be monitored. Ultrasound of the kidney was done shows unremarkable retroperitoneal ultrasound, right kidney 8.6 cm, left is 11.5 cm. Thank you, Dr. Banegas, for kindly asking me to see this patient in the past. Dictated By: JUAN R DEL RIO MD BS/JONATHON Conf#: [id number] DID#: [id number]
--- NOTE | 2017-02-16 23:33 | RADRPT ---
PROCEDURE: XR Chest. CLINICAL INDICATION: Check nasogastric tube position. TECHNIQUE: Single frontal view. COMPARISON: February 16, 2017. 1816 hours. FINDINGS: The nasogastric tube tip is now in the stomach. There is mild interstitial disease at the lung bases , unchanged. The lungs are otherwise clear. The heart is enlarged. There is calcification in the aorta consistent with atherosclerosis. There is no pleural effusion or pneumothorax. Surgical clips are present in the right upper quadrant of the abdomen. IMPRESSION: 1. Nasogastric tube tip now in the stomach. 2. No other change from the prior study done earlier the same day. RPTAT: QQ .Rafael Ruiz MD, MD Date Time Electronically viewed and signed by .Rafael Ruiz MD, on 02/16/2017 23:33 .R/
[2017-02-17] VITALS (15 sets, daily range): BP systolic 73–98; BP diastolic 39–54; PULSE 89–120; RESP 18–21
[2017-02-17] MEDS: NA POLYST SULFON 15 GM/60 ML BTL NGT SCH ×2 (00:28→04:08)
[2017-02-17] MEDS: NA BICARBONATE 650 MG TAB PO SCH ×3 (00:28→12:40)
[2017-02-17 02:25] LABS: CALCIUM 8.8 mg/dl (8.4-10.2); CREATININE 3.37 mg/dl (0.44-1.00); MAGNESIUM 2.1 mg/dl (1.7-2.5); POTASSIUM 5.6 mmol/L (3.5-5.1)
[2017-02-17] MEDS: COLLAGENASE 30 GM TUBE TOP SCH ×2 (08:19→21:09)
[2017-02-17] MEDS ORDERED: DEXTROSE 5%-0.45% NACL 1,000 ML IV SCH (10:30)
[2017-02-17 10:46] LABS: ALBUMIN 2.6 g/dl (3.3-4.9); ALBUMIN/GLOBULIN RATIO 0.89; BILIRUBIN,INDIRECT 0.1 mg/dl (0-1.1); BILIRUBIN,TOTAL 0.1 mg/dl (0.2-1.3); CALCIUM 9.2 mg/dl (8.4-10.2); CREATININE 3.76 mg/dl (0.44-1.00); POTASSIUM 4.9 mmol/L (3.5-5.1); TOTAL PROTEIN 5.5 g/dl (6.1-8.1)
--- NOTE | 2017-02-17 11:27 | PN ---
Date/Time of Note Date/Time of Note DATE: 02/17/17 TIME: 11:27 Assessment/Plan VTE Prophylaxis VTE Prophylaxis Intervention: SCD's Lines/Catheters IV Catheter Type (from Nrs): Mid Line Urinary Cath still in place: No Assessment/Plan Assessment/Plan 1. Acute renal insufficiency - patient renal function worsening. Nephrology on board and recommendations appreciated - Had a long conversation with granddaughter who is patients decision maker about possible need for HD if renal function does not improve. Family at this time is declining any heroic measures. - Most likely secondary to dehydration vs medication induced given she was on Bactrim recently 2. Electrolyte abnl - Kayexalate as needed for hyperkalemia. improving 3. Hypoglycemia - will change to D5 1/2 NS. Discussed feeding patient with family via NG tube which she plans to think about. Discussed its only a temporary solution and PEG would be the next step which she declines as well 4. Sores on feet bilaterally - wound care consultation placed for further management 5. Disposition - Patient remains DNR. Discussed with family if patient does not improve may need to consider comfort care/hospice. Will continue medical management for now. Subjective 24 Hr Interval Summary Free Text/Dictation Patient lethargic and nonresponsive. Granddaughter at bedside and states patient is demented but usually will smile or give thumbs up. Patient hypotensive at time of interview. Exam/Review of Systems Vital Signs Vitals Vital Signs Date Time Temp Pulse Resp B/P Pulse Ox O2 Delivery O2 Flow Rate FiO2 02/17/17 08:28 89 02/17/17 07:48 Nasal Cannula 2.0 02/17/17 07:40 98.6 21 97/50 96 Intake and Output 02/16/17 02/16/17 02/17/17 15:00 23:00 07:00 Intake Total 430 ml 900 ml Balance 430 ml 900 ml Exam Constitutional: frail, non-verbal Eyes: EOMI, PERRL ENMT: mucosa pink and moist Neck: supple Respiratory: diminished breath sounds Cardiovascular: regular rate and rhythm, No edema, No systolic murmur Gastrointestinal: non-tender, soft, No distended, No rebound or guarding Extremities: No edema Neurological: lethargic, unresponsive Skin: other (skin wounds covered in tegaderm) Results Result Diagram: 02/15/17 1530 02/17/17 0648 Results 24 hrs Laboratory Tests Test 02/16/17 16:01 02/16/17 19:00 02/17/17 01:47 02/17/17 03:25 Potassium Level 5.7 H 5.6 H Urine Eosinophils % 0.0 Urine Random Creatinine 25.52 Urine Random Sodium 81 Urine Protein/Creatinine Ratio 3.12 Urine Total Protein 83.0 H Sodium Level 146 H Chloride Level 117 H Carbon Dioxide Level 16 L Anion Gap 19 H Blood Urea Nitrogen 66 H Creatinine 3.37 H Glucose Level 66 #L Calcium Level 8.8 Magnesium Level 2.1 Bedside Glucose 76 Test 02/17/17 06:48 Sodium Level 150 H Potassium Level 4.9 Chloride Level 121 H Carbon Dioxide Level 13 L Anion Gap 21 H Blood Urea Nitrogen 66 H Creatinine 3.76 H Glucose Level 70 Calcium Level 9.2 Total Bilirubin 0.1 L Direct Bilirubin 0.00 Indirect Bilirubin 0.1 Aspartate Amino Transf (AST/SGOT) 45 Alanine Aminotransferase (ALT/SGPT) 32 Alkaline Phosphatase 43 Total Protein 5.5 L Albumin 2.6 L Globulin 2.90 Albumin/Globulin Ratio 0.89 Medications Medications Current Medications Miscellaneous Information 1 ea NOTE XX ; Start 02/15/17 at 19:30 Glucose (Glutose) 15 gm Q15M PRN PO DECREASED GLUCOSE; Start 02/15/17 at 19:30 Glucose (Glutose) 22.5 gm Q15M PRN PO DECREASED GLUCOSE; Start 02/15/17 at 19: 30 Dextrose (D50w Syringe) 25 ml Q15M PRN IV DECREASED GLUCOSE Last administered on 02/15/17t 23:52; Admin Dose 25 ML; Start 02/15/17 at 19:30 Dextrose (D50w Syringe) 50 ml Q15M PRN IV DECREASED GLUCOSE Last administered on 02/15/17t 19:57; Admin Dose 50 ML; Start 02/15/17 at 19:30 Glucagon (Glucagen) 1 mg Q15M PRN IM DECREASED GLUCOSE; Start 02/15/17 at 19: 30 Glucose (Glutose) 15 gm Q15M PRN BUCCAL DECREASED GLUCOSE; Start 02/15/17 at 19:30 Miscellaneous Information (Pending Santyl Order For Wound Care) This patient middleton... PRN PRN XX WOUND CARE; Start 02/15/17 at 23:00 Collagenase (Santyl) 1 applic PRN PRN TOP PRN; Start 02/16/17 at 01:00 Collagenase (Santyl) 1 applic Q12 TOP Last administered on 02/17/17 08:19; Admin Dose 1 APPLIC; Start 02/16/17 at 09:00 Sodium Bicarbonate 650 mg 650 mg TID PO Last administered on 02/17/17 08:19; Admin Dose 650 MG; Start 02/16/17 at 13:00 Dextrose/Sodium Chloride 1,000 ml @ 20 mls/hr Q24H IV Last administered on 11:02; Admin Dose 20 MLS/HR; Start 02/17/17 at 10:30 Sodium Chloride (NS) 500 ml @ 500 mls/hr Q1H ONCE IV ; Start 02/17/17 at 11:30 ; Stop 02/17/17 at 12:29 KAVIN RONDON MD Feb 17, 2017 11:27
[2017-02-17] MEDS ORDERED: SOD CHLORIDE 0.9% 500 ML IV ONE ×2 (11:30→23:30)
--- NOTE | 2017-02-17 12:39 | CONS ---
Date/Time of Note Date/Time of Note DATE: 02/17/17 TIME: 12:39 Assessment/Plan Assessment/Plan Chief Complaint/Hosp Course 87 y/o with IMPRESSION: 1. Acute kidney injury. 2. Underlying prerenal azotemia. 3. The patient has a drug-induced acute kidney injury, possibly Bactrim and Diovan. The patient has hyperkalemia worsened by her Diovan and also Bactrim. 4. Rule out interstitial nephritis. 5. Rule out diabetic nephropathy underlying. 6. The patient has bedsores. 7. Metabolic acidosis Anemia. 8. Hypoalbuminemia. 9 hypernatremia Recs - Stat ABG - Bicarb gtt - FWF - Donato cathether - Poor prognosis, spoke to family who is inclined to keep pt comfortable - Readdress goals > treatment with family Problems: Consultation Date/Type/Reason Admit Date/Time Feb 15, 2017 at 20:01 Initial Consult Date Type of Consultation: Renal 24 HR Interval Summary Free Text/Dictation Pt very obtunded Cr continue to worsen Exam/Review of Systems Vital Signs Vitals Vital Signs Date Time Temp Pulse Resp B/P Pulse Ox O2 Delivery O2 Flow Rate FiO2 02/17/17 12:24 94 02/17/17 12:04 97.6 21 95/52 98 02/17/17 07:48 Nasal Cannula 2.0 Intake and Output 02/16/17 02/16/17 02/17/17 15:00 23:00 07:00 Intake Total 430 ml 900 ml Balance 430 ml 900 ml Exam EENT: Head is atraumatic, normocephalic. obtunded NECK: Supple. LUNGS: Clear. CARDIOVASCULAR: S1, S2 normal. ABDOMEN: Soft, distended, nontender. Bowel sounds present. No palpable mass. EXTREMITIES: The patient has a skin lesion noted on the feet area. CENTRAL NERVOUS SYSTEM: The patient is in a little contracted state Results Result Diagram: 02/15/17 1530 02/17/17 0648 Results 24 hrs Laboratory Tests Test 02/16/17 16:01 02/16/17 19:00 02/17/17 01:47 02/17/17 03:25 Potassium Level 5.7 H 5.6 H Urine Eosinophils % 0.0 Urine Random Creatinine 25.52 Urine Random Sodium 81 Urine Protein/Creatinine Ratio 3.12 Urine Total Protein 83.0 H Sodium Level 146 H Chloride Level 117 H Carbon Dioxide Level 16 L Anion Gap 19 H Blood Urea Nitrogen 66 H Creatinine 3.37 H Glucose Level 66 #L Calcium Level 8.8 Magnesium Level 2.1 Bedside Glucose 76 Test 02/17/17 06:48 Sodium Level 150 H Potassium Level 4.9 Chloride Level 121 H Carbon Dioxide Level 13 L Anion Gap 21 H Blood Urea Nitrogen 66 H Creatinine 3.76 H Glucose Level 70 Calcium Level 9.2 Total Bilirubin 0.1 L Direct Bilirubin 0.00 Indirect Bilirubin 0.1 Aspartate Amino Transf (AST/SGOT) 45 Alanine Aminotransferase (ALT/SGPT) 32 Alkaline Phosphatase 43 Total Protein 5.5 L Albumin 2.6 L Globulin 2.90 Albumin/Globulin Ratio 0.89 Medications Medications Current Medications Miscellaneous Information 1 ea NOTE XX ; Start 02/15/17 at 19:30 Glucose (Glutose) 15 gm Q15M PRN PO DECREASED GLUCOSE; Start 02/15/17 at 19:30 Glucose (Glutose) 22.5 gm Q15M PRN PO DECREASED GLUCOSE; Start 02/15/17 at 19: 30 Dextrose (D50w Syringe) 25 ml Q15M PRN IV DECREASED GLUCOSE Last administered on 02/15/17 23:52; Admin Dose 25 ML; Start 02/15/17 at 19:30 Dextrose (D50w Syringe) 50 ml Q15M PRN IV DECREASED GLUCOSE Last administered on 02/15/17 19:57; Admin Dose 50 ML; Start 02/15/17 at 19:30 Glucagon (Glucagen) 1 mg Q15M PRN IM DECREASED GLUCOSE; Start 02/15/17 at 19: 30 Glucose (Glutose) 15 gm Q15M PRN BUCCAL DECREASED GLUCOSE; Start 02/15/17 at 19:30 Miscellaneous Information (Pending Santyl Order For Wound Care) This patient middleton... PRN PRN XX WOUND CARE; Start 02/15/17 at 23:00 Collagenase (Santyl) 1 applic PRN PRN TOP PRN; Start 02/16/17 at 01:00 Collagenase (Santyl) 1 applic Q12 TOP Last administered on 02/17/17 08:19; Admin Dose 1 APPLIC; Start 02/16/17 at 09:00 Sodium Bicarbonate 650 mg 650 mg TID PO Last administered on 02/17/17 08:19; Admin Dose 650 MG; Start 02/16/17 at 13:00 Dextrose/Sodium Chloride (D5-1/2ns) 1,000 ml @ 20 mls/hr Q24H IV Last administered on 02/17/17t 11:02; Admin Dose 20 MLS/HR; Start 02/17/17 at 10:30 MELITA LINK MD Feb 17, 2017 12:39
[2017-02-17] MEDS ORDERED: SODIUM BICARBONATE (IV ADD) 75 MEQ in DEXTROSE 5% 1,000 ML IV SCH ×2 (13:00→14:11)
[2017-02-17 13:19] LABS: AADO2 Arterial 81.4 mmHg (7.0-24.0); Allen Test ACCEPTAB; Arterial COHb 0.5 % (0.0-3.0); Arterial HCO3 15.4 mmol/L (22.0-26.0); Arterial MetHb 0 % (0.0-1.5); Arterial Total Hemglobin 9.4 g/dl (12.0-18.0); MODE NASAL CANNULA
[2017-02-17 19:28] LABS: CALCIUM 8.4 mg/dl (8.4-10.2); CREATININE 3.93 mg/dl (0.44-1.00); POTASSIUM 4.3 mmol/L (3.5-5.1)
[2017-02-18] VITALS (13 sets, daily range): BP systolic 64; BP diastolic 38; PULSE 0–157; RESP 18
[2017-02-18 00:17] LABS: Allen Test ACCEPTAB; Arterial Base Excess -11.8 mmol/L (-3.0-3); Arterial COHb 0.5 % (0.0-3.0); Arterial Fraction of Oxyhgb 85.9 % (93.0-99.0); Arterial HCO3 14.9 mmol/L (22.0-26.0); Arterial MetHb 0.1 % (0.0-1.5); Arterial Total Hemglobin 8.7 g/dl (12.0-18.0); MODE MASK - NRB
--- NOTE | 2017-02-18 00:42 | EN ---
Date/Time of Note Date/Time of Note DATE: 02/18/17 TIME: 00:38 Event Note Medicine Medicine Event Note VOLTAGE REGULATOR ASSEMBLER note VOLTAGE REGULATOR ASSEMBLER was called for patient being hypotensive as well as oxygen desaturations. Patient was seen and examined at the bedside. Patient's blood pressure was noted to be 61/48 with a heart rate in the 120s and O2 saturation in the 85% on non rebreather. Patient is lethargic and does not withdraw to painful stimuli. She is observed to be having shallow breaths. She does have a history of baseline dementia as well. As per the nurse she was noted to be lethargic earlier however she is more so at this point. Vital signs as per above. Temperature: 97.6 General: Patient is displaying shallow breathing, she is nonresponsive to verbal and tactile stimuli or vigorous sternal rub. H ENT: Pupils sluggish bilaterally CVS: Sinus tachycardia Lungs: Shallow breathing, coarse breath sounds bilaterally Neuro: Patient is breathing on her own however her breathing is shallow, she is nonresponsive to tactile or verbal stimuli or vigorous sternal rub. EKG: Sinus tachycardia at 114 bpm. There do appear to be ST segment depressions in leads I and V4. There also appear to be T-wave inversions in lead I. I do not see any contiguous leads reflecting ST elevations. Chest x-ray: Shows extensive bilateral pulmonary congestion with complete whiteout of the left lung. Await official read. Assessment and plan: #1 Hypotension: Patient was initially started on a 500 cc normal saline bolus. She was continued on an additional 500 cc bolus. Her blood pressure was not responding despite the fluid resuscitative measures. It was determined to take her down to the ICU as I did discuss with the family regarding her goals of care and the granddaughter though wanted to keep her DNR/DNI she was willing to try vasopressor support if needed. EKG did show signs of ST depressions. I do not see any signs of any ST elevations. However the EKG did read it as an acute CA though I am not sure this is exactly was going on at this time. I will be ordering a troponin as well as this time. Though with her DNR/DNI CODE STATUS and her current clinical condition we likely will not pursue any aggressive measures at this time. STAT cbc, bmp, lactate, and troponin were ordered. #2 Acute respiratory failure: Patient does not appear to be retaining CO2 based on her ABG. However her chest x-ray is significant for extensive pulmonary vascular congestion especially on the left side of the lung with complete white out. At the current time I am going to stop the the IV fluids. At the current time because her blood pressure is critically low at the current time will not give any Lasix. #3 acute on chronic kidney disease: Patient's kidneys have been worsening as it appears since her admission. Her urine output has been minimal. At the current time secondary to #2 I will be holding her fluids and I will be initiating levophed. #4 Multiple organ failure: Port of care at this time will provide pressor support for #1. I will have to hold off on any Lasix at this time secondary to #1. I did discuss the findings with the family in detail please see below. #5 Metabolic acidosis: was on sodium bicarb, however at the current time I am holding this secondary to #2. I spoke to the patient's granddaughter at length on the phone as well regarding the patient's present clinical condition. I do feel that secondary to her multiple organ failure and her worsening clinical status I feel it may be time to discuss the CODE STATUS and further goals of care. I do feel that her condition is progressively worsening especially in the setting of her hypotension as well as her markedly significant pulmonary vascular congestion. At the current time we will can continue her current treatment and I will continue Levothroid. The family would like to come in and discuss comfort care. At the current time we will continue the current management and await the family's decision. Greater than 65 minutes of critical care time was spent on the care management of this patient. JEAN PIERRE CHAKRABORTY Feb 18, 2017 00:42
[2017-02-18] MEDS ORDERED: NORepinephrine 8MG/250 ML (PMX 250 ML ONE (01:03)
--- NOTE | 2017-02-18 01:31 | RADRPT ---
PROCEDURE: Portable chest x-ray. CLINICAL INDICATION: 87-year of age, female. Hypoxia. Low saturation. TECHNIQUE: Portable AP view of the chest. COMPARISON: February 16, 2017 FINDINGS: Medical devices: Enteric tube courses below diaphragm as before. Atherosclerotic calcification of thoracic aorta. Contour of the descending thoracic aorta is obscure d. Left cardiac border is obscured due to lung disease limiting evaluation of heart size. There is near complete opacification of the left hemithorax that is new from prior exam. This is lik veronica due to a combination of a left pleural effusion and lung disease. On the right, pulmonary vessel s are prominent and indistinct and there are prominent interstitial markings in keeping with pulmona ry edema with early airspace changes. Negative for right pleural effusion. Negative for evidence of a pneumothorax. Bones are osteopenic. Status post vertebroplasty in a lumbar vertebra. They are age indeterminate fr acture deformities of several left-sided ribs were also present previously. Additional comment: None. IMPRESSION: 1. Near complete opacification of the left hemithorax is new from prior exam is likely due to a comb ination of lung disease and a left pleural effusion. Differential diagnosis includes, but is not kramer ited to, aspiration, pneumonia or left hemothorax from a ruptured acute aortic syndrome. This could better be evaluated with CT if the clinical situation warrants. 2. Interstitial pulmonary edema with early airspace changes in the right lung. 3. Osteopenia with age indeterminate fractures of several left-sided ribs that are unchanged from pr ior exam. Critical results above finding were discussed with Dr. Mason by Dr. Katie Dempsey on February 18, 2017 at 01:25 a.m. RPTAT: HCTS Physician Leif Date Time Electronically viewed and signed by Shayna Dempsey Physician on 02/18/2017 01:30 CS/
[2017-02-18 01:45] LABS: CALCIUM 7.6 mg/dl (8.4-10.2); CREATININE 3.69 mg/dl (0.44-1.00); POTASSIUM 4.7 mmol/L (3.5-5.1)
[2017-02-18 01:45] LABS: ABNORMAL IP MESSAGE 1; HEMOGLOBIN 8.8 g/dl (12.0-16.0); MEAN CORPUSCULAR HEMOGLOBIN 25.8 pg (29.0-33.0); MEAN CORPUSCULAR HGB CONC 30.3 g/dl (32.0-37.0); NUCLEATED RED BLOOD CELLS% 0.1 /100WBC (0.0-0.0); RED BLOOD COUNT 3.41 10^6/ul (4.20-5.40); RED CELL DISTRIBUTION WIDTH 19.9 % (11.5-14.5); WHITE BLOOD COUNT 18.7 10^3/ul (4.8-10.8)
[2017-02-18 01:50] LABS: PLATELET COUNT 37 10^3/UL (140-415); POSITIVE DIFF @See below
[2017-02-18] MEDS ORDERED: morphine 2 MG INJ ONE (02:05)
[2017-02-18] MEDS ORDERED: morphine 2 MG INJ IV ONE (02:10)
[2017-02-18] MEDS ORDERED: NORepinephrine 8MG/250 ML (PMX 250 ML IV SCH (02:30)
--- NOTE | 2017-02-18 02:45 | EN ---
Date/Time of Note Date/Time of Note DATE: 02/18/17 TIME: 02:40 Event Note Medicine Medicine Event Note Pronouncement Note Was called to the room to pronounce the patient. Non-responsive to verbal stimuli. Non-responsive to vigorous sternal rub. No heart sounds appreciated on auscultation. Pupils fixed and non reactive to light bilaterally. Telemonitor showing asystole. Time of approx. 2:28am. Pronounced at approx. at 2: 36AM. Family present at the bedside. Patient was a comfort care. JEAN PIERRE CHAKRABORTY Feb 18, 2017 02:45
[2017-02-18 03:18] LABS: ANISOCYTOSIS 1+ (0-0); BASOPHILS % (M) 1 % (0-2); EOSINOPHILS % (M) 1 % (0-7); HYPOCHROMASIA 1+ (0-0); MONOCYTES % (M) 2 % (0-11); PLASMA CELLS #M 0.1 10^3/ul (0.0-0.0); PLASMAC%(M) 1 % (0); PLATELET ESTIMATE DECREASED; POIKILOCYTOSIS 3+ (0-0); POLYCHROMASIA 3+ (0-0)
--- NOTE | 2017-02-18 07:40 | DES ---
Date/Time of Note Date/Time of Note DATE: 02/18/17 TIME: 07:40 Discharge/ Summary Admission/Discharge Info Admit Date/Time Feb 15, 2017 at 20:01 Discharge Date/Time Feb 18, 2017 at 02:28 Final Diagnosis Acute kidney failure secondary to acute tubular necrosis Preliminary Cause of 1. Cardiopulmonary arrest 2. Acute kidney failure secondary to ATN 3. Respiratory acidosis 4. Failure to thrive Hx of Present Illness This is an 87-year-old female with a history of dementia, intracranial hemorrhage, hypertension, insulin-dependent diabetes, dyslipidemia. Patient was brought to the ER from a [place] [facility] that granddaughter runs for worsening mentation, decreased p.o. intake as well as refusing to take oral medications for 3 days. Patient is not able to provide history and as such information was gathered from chart review and from the ER physician. Patient was admitted here in October of this year for acute intracranial hemorrhage which was managed conservatively. When patient presented to the ER, she was found to have acute renal insufficiency with a creatinine of 2.8 and a potassium of 7.1. Her bicarb was 15, lactic acid 2.7. Vitals were stable. Head CT with no acute findings. Chest x-ray shows a chronic interstitial change otherwise no acute findings. Renal ultrasound is unremarkable. Nephrology was consulted for assistance with management. NG tube was placed as well. Hospital Course Patient was admitted for further workup and nephrology was placed for further workup of etiology. Patient was found to have hyperkalemia and given Kayexalate which improved her K to normal levels. Patient was on Bactrim as an outpatient which was started at home due to concerns about the pressure sores on her heels. Bactrim as well as Diovan were discontinued due to believe was adding to acute kidney injury. Patients renal function continue to decline and discussion was held with granddaughter about goals of care. Patient remained DNR/DNI and no "lines or tubes" were to be placed and no heroic measures were to be performed. Family was not ready to make patient comfort care despite being unresponsive and wanted to continue to pursue medical management. They declined hemodialysis as well. ABG was performed and patient found to be in combined metabolic and respiratory acidosis. She was started on bicarb drip and free water flushes per NG tube due to hypernatremia. Patient developed hypotension and given NS bolus with acute improvement but overnight became hypotensive again with tachycardia and hypoxia and was transferred to ICU after discussion with family to pursue chemical code. CXR was performed that showed a large pleural effusions and IVF fluids were discontinued. Discussion was again held with the family regarding how to address the effusions and patients declining health as she was desaturating as well on non rebreather mask. Family decided to place patient on comfort measures and patient . Pending Labs/Cultures Laboratory Tests Test 02/17/17 13:00 02/17/17 18:36 02/17/17 23:57 02/18/17 00:42 Blood Gas Specimen Source Blood arterial Blood arterial Arterial Blood Date Drawn 02/17/2017 1:05:02 PM 02/18/2017 12:10:56 AM Arterial Blood pH (Temp corrected) 7.244 (7.350-7.450) 7.227 (7.350-7.450) Arterial Blood pCO2 (Temp correct) 36.5mmhg (35-45) 36.6mmhg (35-45) Arterial Blood pO2 (Temp corrected) 68.0mmHG (80-90.0) 55.4mmHG (80-90.0) Arterial Blood HCO3 15.4mmol/L (22.0-26.0) 14.9mmol/L (22.0-26.0) Arterial Blood Base Excess -11.0mmol/L (-3.0-3) -11.8mmol/L (-3.0-3) Arterial Blood Oxygen Saturation 92.5mmHG (95.0-100.0) 86.4mmHG (95.0-100.0) Ayo Test ACCEPTAB ACCEPTAB Arterial Blood Gas Puncture Site Right Radial Right Radial Arterial Blood Carboxyhemoglobin 0.5% (0.0-3.0) 0.5% (0.0-3.0) Arterial Blood Methemoglobin 0% (0.0-1.5) 0.1% (0.0-1.5) Blood Gas A-a O2 Differential 81.4mmHg (7.0-24.0) 621.0mmHg (7.0-24.0) Oxyhemoglobin Percent 92.0% (93.0-99.0) 85.9% (93.0-99.0) Total Hemoglobin 9.4g/dl (12.0-18.0) 8.7g/dl (12.0-18.0) Blood Gas Temperature 37.0C 37.0C Blood Gas Modality NASAL CANNULA MASK - NRB FiO2 27.0% 100.0% Blood Gas Critical Value Read Back Rosendo FAIRCHILD RN, MD Blood Gas Notified Whom JLD MG Blood Gas Notified Time 02/17/2017 1:18:56 PM 02/18/2017 12:16:49 AM Sodium Level 149mmol/L (135-144) Potassium Level 4.3mmol/L (3.5-5.1) Chloride Level 119mmol/L (97-110) Carbon Dioxide Level 15mmol/L (21-31) Anion Gap 19 (8-16) Blood Urea Nitrogen 67mg/dl (7-20) Creatinine 3.93mg/dl (0.44-1.00) Glucose Level 81mg/dl (70-220) Calcium Level 8.4mg/dl (8.4-10.2) Troponin I 0.177ng/ml (0.00-0.12) Test 02/18/17 00:52 02/18/17 01:24 Sodium Level 143mmol/L (135-144) Potassium Level 4.7mmol/L (3.5-5.1) Chloride Level 117mmol/L (97-110) Carbon Dioxide Level 14mmol/L (21-31) Anion Gap 17 (8-16) Blood Urea Nitrogen 69mg/dl (7-20) Creatinine 3.69mg/dl (0.44-1.00) Glucose Level 83mg/dl (70-220) Lactic Acid Level 6.0mmol/L (0.5-2.0) Calcium Level 7.6mg/dl (8.4-10.2) White Blood Count 18.710^3/ul (4.8-10.8) Red Blood Count 3.4110^6/ul (4.20-5.40) Hemoglobin 8.8g/dl (12.0-16.0) Hematocrit 29.0% (37.0-47.0) Mean Corpuscular Volume 85.0fl (82.0-101.0) Mean Corpuscular Hemoglobin 25.8pg (29.0-33.0) Mean Corpuscular Hemoglobin Concent 30.3g/dl (32.0-37.0) Red Cell Distribution Width 19.9% (11.5-14.5) Platelet Count 3710^3/UL (140-415) Mean Platelet Volume fl (7.4-10.4) Neutrophils % % (39.0-77.0) Segmented Neutrophils % (Manual) 70% (39-77) Band Neutrophils % (Manual) 17% (0-4) Lymphocytes % % (15.0-51.0) Lymphocytes % (Manual) 8% (15-51) Monocytes % % (0.0-11.0) Monocytes % (Manual) 2% (0-11) Eosinophils % % (0.0-7.0) Eosinophils % (Manual) 1% (0-7) Basophils % % (0.0-2.0) Basophils % (Manual) 1% (0-2) Plasma Cells % (manual) 1% (0) Nucleated Red Blood Cells % 0.1/100WBC (0.0-0.0) Neutrophils # 10^3/ul (1.6-7.5) Neutrophils # (Manual) 13.710^3/ul (1.7-7.5) Band Neutrophils # 3.110^3/ul (0.0-0.6) Absolute Lymphocytes (Manual) 1.410^3/ul (0.8-2.9) Lymphocytes # 10^3/ul (0.8-2.9) Monocytes # 10^3/ul (0.3-0.9) Absolute Monocytes (Manual) 0.310^3/ul (0.3-0.9) Eosinophils # 10^3/ul (0.0-0.5) Basophils # 10^3/ul (0.0-0.1) Basophils # (Manual) 0.110^3/ul (0.0-0.0) Plasma Cells # (manual) 0.110^3/ul (0.0-0.0) Nucleated Red Blood Cells # 10^3/ul (0.0-0.0) Platelet Estimate DECREASED Polychromasia 3+ (0-0) Hypochromasia 1+ (0-0) Poikilocytosis 3+ (0-0) Anisocytosis 1+ (0-0) Macrocytosis 1+ (0-0) Autopsy Request Indications N/A KAVIN RONDON MD Feb 18, 2017 07:40
== END 2017-02-18 02:28 | disposition expired | DRG 682 ==
LOC: E/R 14:46 → TEL 20:01 → ICU 02-18 00:20
PROVIDERS: ADMIT Internal Medicine; ATTEND Internal Medicine
PROC: 4A033R1 Measurement of Arterial Saturation, Peripheral, Percutaneous Approach (ICD-10-PCS; principal; 2017-02-17)
DX: N17.0 Acute kidney failure with tubular necrosis (principal); J96.00 Acute respiratory failure, unspecified whether with hypoxia or hypercapnia; R57.0 Cardiogenic shock; G93.41 Metabolic encephalopathy; L89.151 Pressure ulcer of sacral region, stage 1; E87.4 Mixed disorder of acid-base balance; E87.0 Hyperosmolality and hypernatremia; F03.90 Unspecified dementia, unspecified severity, without behavioral disturbance, psychotic disturbance, mood disturbance, and anxiety; E11.22 Type 2 diabetes mellitus with diabetic chronic kidney disease; E11.649 Type 2 diabetes mellitus with hypoglycemia without coma; E88.09 Other disorders of plasma-protein metabolism, not elsewhere classified; E87.5 Hyperkalemia; Z66 Do not resuscitate; Z51.5 Encounter for palliative care; I10 Essential (primary) hypertension; E86.0 Dehydration; N14.2 Nephropathy induced by unspecified drug, medicament or biological substance; E78.5 Hyperlipidemia, unspecified; L89.892 Pressure ulcer of other site, stage 2; D64.9 Anemia, unspecified; L89.610 Pressure ulcer of right heel, unstageable; I12.9 Hypertensive chronic kidney disease with stage 1 through stage 4 chronic kidney disease, or unspecified chronic kidney disease; N18.9 Chronic kidney disease, unspecified; Z79.4 Long term (current) use of insulin; N14.1 Nephropathy induced by other drugs, medicaments and biological substances; T37.0X5A Adverse effect of sulfonamides, initial encounter; T46.5X5A Adverse effect of other antihypertensive drugs, initial encounter
CPT/HCPCS: 36415; 36600; 70450; 71010; 76775; 80048; 80053; 81001; 81003; 82570; 82803; 82962; 83605; 83735; 83970; 84100; 84132; 84155; 84300; 84436; 84443; 84479; 84484; 85025; 85610; 85730; 86704; 86709; 86803; 87081; 87086; 87340; 89190; 93005; 94640; 94664; 96374; 96375; J0610; J1815; J2270; J7030; J7040; J7042; J7060; J7070; P9047